=== PATIENT | female | born 1985 | race Caucasian/White ===

== ENCOUNTER 2016-08-16 16:10 | Emergency (ER) | payer OTHER ==
[2016-08-16 16:42] VITALS: BP 109/61
[2016-08-16] MEDS ORDERED: Ibuprofen TAB* 600 MG PO ONE (17:20)
--- NOTE | 2016-08-16 17:24 | UC ---
Lower Extremity/Ankle HPI - HPI Summary HPI Summary: Patient has had sever left clcaneal pain for the past few days, hard to walk and if feet are in the right position it goes numb. - History of Current Complaint Chief Complaint: UCLowerExtremity Stated Complaint: LEFT FOOT PAIN Time Seen by Provider: 08/16/16 17:11 Hx Obtained From: Patient Hx Last Menstrual Period: 08/04/16 ?: No Onset/Duration: Sudden Onset, Lasting Days Severity Initially: Mild Severity Currently: Severe Pain Intensity: 8 Pain Scale Used: 0-10 Numeric Aggravating Factor(s): Standing, Ambulation Alleviating Factor(s): Rest Able to Bear Weight: Yes - Risk Factors Gout Risk Factors: Negative DVT Risk Factors: Negative Septic Arthritis Risk Factor: Negative - Allergies/Home Medications Allergies/Adverse Reactions: Allergies Allergy/AdvReac Type Severity Reaction Status Date / Time Morphine Allergy Intermediate Unknown Verified 08/16/16 16:35 Reaction Details Amoxicillin Allergy Mild Hives Verified 08/16/16 16:35 Pseudoephedrine Allergy Hives Verified 08/16/16 16:35 [From [facility]] PMH/Surg Hx/FS Hx/Imm Hx Previously Healthy: Yes Endocrine History Of: Reports: Diabetes - pre diabetes, Thyroid Disease - HYPO Cardiovascular History Of: Denies: Cardiac Disorders, Hypertension, Congestive Heart Failure Respiratory History Of: Reports: Asthma - NEBULIZER AT HOME AND INHAILER NEEDED, Bronchitis - CHRONIC Denies: COPD GI/ History Of: Reports: Gastroesophageal Reflux Denies: Ulcer, Renal Disease - Surgical History Surgical History: Yes Surgery Procedure, Year, and Place: APPENDECTOMY, OVARIAN CYST ,PILONIDAL CYSTECTOMY - Family History Known Family History: Positive: Hypertension - Social History Alcohol Use: None Substance Use Type: None Smoking Status (MU): Former Smoker - Immunization History Most Recent Tetanus Shot: WITHIN 10 YEARS Review of Systems Constitutional: Negative Skin: Negative Eyes: Negative ENT: Negative Respiratory: Negative Cardiovascular: Negative Gastrointestinal: Negative Genitourinary: Negative Motor: Negative Neurovascular: Negative Musculoskeletal: Arthralgia, Edema - plantar aspect of foot Neurological: Negative Psychological: Negative All Other Systems Reviewed And Are Negative: Yes Physical Exam Triage Information Reviewed: Yes Appearance: Well-Appearing, Well-Nourished, Pain Distress Vital Signs: Initial Vital Signs Temp 99.1 F 08/16/16 16:32 Pulse 103 08/16/16 16:32 Resp 14 08/16/16 16:32 BP 109/61 08/16/16 16:32 Pulse Ox 99 08/16/16 16:32 Vital Signs Reviewed: Yes Eye Exam: Normal Eyes: Positive: Conjunctiva Clear ENT Exam: Normal ENT: Positive: Normal ENT inspection, Pharynx normal, TMs normal Dental Exam: Normal Neck exam: Normal Neck: Positive: Supple, Nontender, No Lymphadenopathy Respiratory Exam: Normal Respiratory: Positive: Chest non-tender, Lungs clear, Normal breath sounds Cardiovascular Exam: Normal Cardiovascular: Positive: RRR, No Murmur, Pulses Normal Abdominal Exam: Normal Abdomen Description: Positive: Nontender, No Organomegaly, Soft Bowel Sounds: Positive: Present Musculoskeletal Exam: Normal Musculoskeletal: Positive: Strength Intact, ROM Limited @, Edema @ - left foot, edema plantar aspect of foot, discreet area of swelling at tarsals Neurological Exam: Normal Neurological: Positive: Alert, Muscle Tone Normal Psychological Exam: Normal Psychological: Positive: Normal Response To Family, Age Appropriate Behavior Skin Exam: Normal Lower Extremity Course/Dx - Course Course Of Treatment: hx obtained, exam performed, xray obtained neg for any injury or pathology., ibuprofen given. - Differential Dx/Diagnosis Differential Diagnosis/HQI/PQRI: Contusion, Dislocation, Infection, Sprain, Strain, Tendonitis Provider Diagnoses: foot pain, left Discharge - Discharge Plan Condition: Stable Disposition: HOME Patient Education Materials: Arthralgia (ED) Additional Instructions: Rest ice compress and elevate your foot. ice masseage to the area for 5 minutes multiple times a day when swollen. [place] wrap may be helpful. If pain persists follow up with your primary physician.
--- NOTE | 2016-08-16 17:47 | RAD ---
HISTORY: Left calcaneal pain COMPARISONS: None VIEWS: 2, Frontal and lateral views of the left foot FINDINGS: BONE DENSITY: Normal. BONES: There is no displaced fracture. JOINTS: There is no arthropathy. ALIGNMENT: There is no dislocation. SOFT TISSUES: Unremarkable. OTHER FINDINGS: None. IMPRESSION: NO ACUTE OSSEOUS INJURY. IF SYMPTOMS PERSIST, RECOMMEND REPEAT IMAGING.
== END 2016-08-16 18:10 | disposition home or self-care (01) ==
LOC: UCCORT 16:10
DX: M79.672 Pain in left foot (principal); R73.03 Prediabetes; E03.9 Hypothyroidism, unspecified; Z87.891 Personal history of nicotine dependence; Z88.5 Allergy status to narcotic agent; Z88.3 Allergy status to other anti-infective agents; Z88.8 Allergy status to other drugs, medicaments and biological substances
CPT/HCPCS: 99212; A9270-GY; G0463

== ENCOUNTER 2016-08-19 13:04 | Emergency (ER) | payer OTHER ==
[2016-08-19 13:24] VITALS: BP 156/75
--- NOTE | 2016-08-19 13:54 | UC ---
Lower Extremity/Ankle HPI - HPI Summary HPI Summary: left foot pain, was seen 08/16/16 and dx'd with left foot pain after neg xray. Last pm slid on ice and heard a pop and reinjured the left foot. Has numbness and burning at the base of her foot and severe pain. Hard to bear weight. 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 - History of Current Complaint Chief Complaint: UCLowerExtremity Stated Complaint: LEFT FOOT INJURY Time Seen by Provider: 08/19/16 13:49 Hx Obtained From: Patient Hx Last Menstrual Period: 08/05/16 Onset/Duration: Gradual Onset, Lasting Days, Still Present Severity Initially: Moderate Severity Currently: Moderate Pain Intensity: 7 - up to a 9 with weight Aggravating Factor(s): Standing Alleviating Factor(s): Nothing Able to Bear Weight: Yes - painful - Allergies/Home Medications Allergies/Adverse Reactions: Allergies Allergy/AdvReac Type Severity Reaction Status Date / Time Morphine Allergy Intermediate Unknown Verified 08/19/16 13:24 Reaction Details Amoxicillin Allergy Mild Hives Verified 08/19/16 13:24 Pseudoephedrine Allergy Hives Verified 08/19/16 13:24 [From [facility]] PMH/Surg Hx/FS Hx/Imm Hx Endocrine History Of: Reports: Diabetes - pre diabetes, Thyroid Disease - HYPO Cardiovascular History Of: Denies: Cardiac Disorders, Hypertension, Congestive Heart Failure Respiratory History Of: Reports: Asthma - NEBULIZER AT HOME AND INHAILER NEEDED, Bronchitis - CHRONIC Denies: COPD GI/ History Of: Reports: Gastroesophageal Reflux Denies: Ulcer, Renal Disease - Surgical History Surgical History: Yes Surgery Procedure, Year, and Place: APPENDECTOMY, OVARIAN CYST ,PILONIDAL CYSTECTOMY - Family History Known Family History: Positive: Hypertension - Social History Occupation: Employed Full-time Lives: With Family Alcohol Use: None Substance Use Type: None Smoking Status (MU): Former Smoker - Immunization History Most Recent Tetanus Shot: WITHIN 10 YEARS Review of Systems Constitutional: Negative Skin: Negative Eyes: Negative ENT: Negative Respiratory: Cough Cardiovascular: Negative Gastrointestinal: Negative Genitourinary: Negative Motor: Negative Neurovascular: Negative Musculoskeletal: Arthralgia - foot, left Neurological: Negative Psychological: Negative All Other Systems Reviewed And Are Negative: Yes Physical Exam Triage Information Reviewed: Yes Appearance: Well-Appearing, Pain Distress, Obese Vital Signs: Initial Vital Signs Temp 99.5 F 08/19/16 13:14 Pulse 84 08/19/16 13:14 Resp 24 08/19/16 13:14 BP 156/75 08/19/16 13:14 Pulse Ox 100 08/19/16 13:14 Vital Signs Reviewed: Yes Eyes: Positive: Conjunctiva Clear ENT: Positive: Normal ENT inspection Neck: Positive: Supple, Nontender Respiratory: Positive: No respiratory distress Cardiovascular: Positive: RRR, Pulses Normal, Brisk Capillary Refill Musculoskeletal: Positive: Strength Intact, ROM Limited @ - left foot limited flexion Neurological: Positive: Alert, Muscle Tone Normal Psychological Exam: Normal Skin Exam: Normal Lower Extremity Course/Dx - Course Course Of Treatment: repeat xray done with repeat trauma and is again neg. Will give pt CAM boot and crutches with limited weight bearing and advise definite follow up with ortho. No heel spur. Pain is severe and is limiting pt 's ability to work. - Differential Dx/Diagnosis Differential Diagnosis/HQI/PQRI: Contusion, Fracture (Closed), Sprain, Strain Provider Diagnoses: left foot pain Discharge - Discharge Plan Condition: Stable Disposition: HOME Prescriptions: HYDROcodone/ACETAMIN 5-325 MG* [[place] 5-325 TAB*] 1 tab PO Q6H PRN #10 tab MDD 4 PRN Reason: Pain Patient Education Materials: Crutch Instructions (ED), Foot Sprain (ED) Forms: *Work Release Referrals: Pierre Ayala MD [Medical Doctor] - 1 Day Dano Kaminski MD [Primary Care Provider] -
[2016-08-19] MEDS ORDERED: HYDROcodone/ACETAMIN 5-325 MG* 1 TAB PO ONE (14:05)
--- NOTE | 2016-08-19 14:05 | RAD ---
HISTORY: Fall, medial left foot pain COMPARISONS: August 16, 2016 VIEWS: 3, Frontal, lateral, and oblique views of the left foot FINDINGS: BONE DENSITY: Normal. BONES: There is no displaced fracture. JOINTS: There is no arthropathy. ALIGNMENT: There is no dislocation. SOFT TISSUES: Unremarkable. OTHER FINDINGS: None. IMPRESSION: NO ACUTE OSSEOUS INJURY. IF SYMPTOMS PERSIST, RECOMMEND REPEAT IMAGING.
== END 2016-08-19 15:05 | disposition home or self-care (01) ==
LOC: UCCORT 13:04
DX: M79.672 Pain in left foot (principal); Z88.6 Allergy status to analgesic agent; Z88.0 Allergy status to penicillin; Z88.8 Allergy status to other drugs, medicaments and biological substances; Z87.891 Personal history of nicotine dependence
CPT/HCPCS: 99213; G0463

== ENCOUNTER 2016-09-13 14:58 | Emergency (ER) | payer OTHER ==
[2016-09-13 17:01] VITALS: BP 139/74
[2016-09-13] MEDS ORDERED: Sulfamethox/Trimethoprim DS 800/160* TAB PO ONE (17:17)
--- NOTE | 2016-09-13 17:24 | UC ---
Skin Complaint HPI - HPI Summary HPI Summary: pt c/o pimple taht began 3-4 days ago, pt "popped" pimple and now has c/o of increased redness, swelling and tenderness at site. Headache, and vomiting this morning X 3 - History of Current Complaint Chief Complaint: UCSkin Time Seen by Provider: 09/13/16 16:58 Stated Complaint: SKIN COMPLAINT Hx Last Menstrual Period: 09/05/16 ?: No Onset/Duration: Gradual Onset, Lasting Days Skin Exposure Onset/Duration: Days Ago Timing: Constant Onset Severity: Mild Current Severity: Mild Location: Face Character: Redness, Raised, Painful Aggravating: Touch Alleviating: Nothing Associated Signs & Symptoms: Positive: Tenderness - Allergy/Home Medications Allergies/Adverse Reactions: Allergies Allergy/AdvReac Type Severity Reaction Status Date / Time Morphine Allergy Intermediate Unknown Verified 08/28/16 11:39 Reaction Details Amoxicillin Allergy Mild Hives Verified 08/28/16 11:39 Lactose Intolerance (GI) Allergy GI Upset Verified 08/28/16 11:39 Pseudoephedrine Allergy Hives Verified 08/28/16 11:39 [From [facility]] Review of Systems Constitutional: Negative Skin: Other - erythema , tenderness, Eyes: Negative ENT: Negative Respiratory: Negative Cardiovascular: Negative Gastrointestinal: Negative Genitourinary: Negative Motor: Negative Neurovascular: Negative Musculoskeletal: Negative Neurological: Headache Psychological: Negative All Other Systems Reviewed And Are Negative: Yes PMH/Surg Hx/FS Hx/Imm Hx - Additional Past Medical History Additional PMH: has positive history to MRSA exposure Previously Healthy: No - see PMH Endocrine History Of: Reports: Diabetes - pre diabetes, Thyroid Disease - HYPO Cardiovascular History Of: Denies: Cardiac Disorders, Hypertension, Pacemaker/ICD, Congestive Heart Failure Respiratory History Of: Reports: Asthma - NEBULIZER AT HOME AND INHAILER NEEDED, Bronchitis - CHRONIC Denies: COPD GI/ History Of: Reports: Gastroesophageal Reflux Denies: Ulcer, Renal Disease - Surgical History Surgical History: Yes Surgery Procedure, Year, and Place: APPENDECTOMY, OVARIAN CYST ,PILONIDAL CYSTECTOMY - Family History Known Family History: Positive: Hypertension - Social History Lives: With Family Alcohol Use: None Substance Use Type: None Smoking Status (MU): Former Smoker - Immunization History Most Recent Tetanus Shot: WITHIN 10 YEARS Physical Exam Triage Information Reviewed: Yes Appearance: Well-Appearing Vital Signs: Initial Vital Signs Temp 97.4 F 09/13/16 16:58 Pulse 87 09/13/16 16:58 Resp 16 09/13/16 16:58 BP 139/74 09/13/16 16:58 Pulse Ox 99 09/13/16 16:58 Vital Signs Reviewed: Yes Eye Exam: Normal ENT Exam: Other - erythematous skin left side of nose, ~ 3 cm long and 2 cm wide Neck exam: Normal Respiratory Exam: Normal Cardiovascular Exam: Normal Musculoskeletal Exam: Normal Neurological Exam: Normal Psychological Exam: Normal Skin Exam: Other - erythematous area to left side of nose, palpable firm area ~ 1 cm wide, scabbed wound ~ pencil eraser size Course/Dx - Differential Diagnoses - Skin Complaint Differential Diagnoses: Abscess, Cellulitis - Diagnoses Provider Diagnoses: cellulitis,. cystic acne Discharge - Discharge Plan Condition: Stable Disposition: HOME Prescriptions: Sulfamethox/Trimethoprim DS* [Bactrim DS 800/160 TAB*] 1 tab PO BID #10 tab Patient Education Materials: Cellulitis (ED), Acne (ED) Referrals: Dano Kaminski MD [Primary Care Provider] -
== END 2016-09-13 17:28 | disposition home or self-care (01) ==
LOC: UCCORT 14:58
DX: J34.0 Abscess, furuncle and carbuncle of nose (principal); L70.0 Acne vulgaris; R51 Headache; R11.10 Vomiting, unspecified; Z88.5 Allergy status to narcotic agent; Z88.0 Allergy status to penicillin; Z88.8 Allergy status to other drugs, medicaments and biological substances; Z87.891 Personal history of nicotine dependence
CPT/HCPCS: 99212; A9270-GY; G0463

== ENCOUNTER → 2016-09-21 11:25 | Day surgery (SDC) | payer OTHER ==
[~2016-09-21 11:25] MED LIST: Buffered Lidocaine 1% SYR 3ML* 3 ML/SYR SYRINGE INTRADERM ONE; Bupivacaine 0.5% SDV PF* 30 ML VIAL ONE; Clindamycin 900 MG IVPREMIX(* 900 MG/50 ML SDV IV ONE; DiMENhydriNATE IV* 50 MG/ML VIAL IV PUSH PRN; HYDROcodone/ACETAMIN 5-325 MG* 1 TAB ONE; HYDROcodone/ACETAMIN 5-325 MG* 1 TAB PO PRN; HYDROmorphone INJ* 1 MG/ML CARPUJECT SYRINGE ONE; Ketorolac INJ* 30 MG/ML 1 ML VIAL IV PRN; Ketorolac INJ* 30 MG/ML 1 ML VIAL ONE; Lidocaine 2% PF * 5 ML VIAL ONE; Ondansetron INJ* 2 MG/ML VIAL IV PRN; Propofol* 10 MG/ML 20 ML BTL IV PUSH ONE; fentaNYL* 50 MCG/ML 2 ML VIAL (100 MCG VIAL) ONE; fentaNYL* 50 MCG/ML 5 ML VIAL (250 MCG VIAL) ONE
[2016-09-21 11:59] LABS: UR Preg Internal Control QC Line Present
[2016-09-21] MEDS: fentaNYL* 50 MCG/ML 2 ML VIAL (100 MCG VIAL) IV PRN ×2 (15:59→16:13)
[2016-09-21] MEDS: HYDROmorphone INJ* 1 MG/ML CARPUJECT SYRINGE IV PRN ×3 (16:09→17:13)
[2016-09-21 18:05] VITALS: BP 110/89
--- NOTE | 2016-09-21 21:37 | RAD ---
INDICATION: Excision of accessory navicular COMPARISON: Left foot August 19, 2016 FINDINGS: 9 seconds of fluoroscopy were provided for the orthopedics department. Fluoroscopic spot imaging of the left foot were obtained for operative control. CPT II Codes: 6045F (fluoro time doc)
--- NOTE | 2016-09-22 03:37 | OP ---
DATE OF OPERATION: 09/21/16 - [facility] DATE OF : 81 ATTENDING SURGEON: Gino Liao MD HORIZONTAL RESAW OPERATOR: Maria E Singh PA-C. ANESTHESIOLOGIST: Yogesh Park MD ANESTHESIA: General PRE-OP DIAGNOSIS: Painful accessory navicular hind foot valgus. POST-OP DIAGNOSIS: Painful accessory navicular hind foot valgus. OPERATIVE PROCEDURE: Medial displacement calcaneal osteotomy, right foot and repair of the accessory navicular. DESCRIPTION OF PROCEDURE: The patient was taken to the operating room where a lateral oblique incision was made over the lateral heel. We subluxed the peroneal tendons dorsally to allow visualization of the lateral calcaneus. The osteotomy was performed from lateral to medial dividing the calcaneus in that plane. This was then displaced medially one full centimeter and pinned from the heel to the anterior process using a 65-mm partially threaded cancellous screw. We then irrigated the lateral wound and the heel wound closing with Vicryl Surgipro for the heel and pavan for the skin. The longitudinal incision was made medially centered on the navicular medially. We incised down through the sheath into the posterior tibial tendon. The tendon itself appeared to be in good shape without any thickening or nodularity. The accessory navicular was quite large 3 cm in length x 2 cm in thick over a centimeter thick. Because of the good shape of the posterior tibial tendon, we repaired the accessory navicular by freshening both bone surfaces with the power eladio and fixing it with pair of 2.7 mm cortical screws. X-rays intraoperatively showed good fixation of the accessory navicular. We then irrigated the medial wound closing again with Vicryl and pavan for the skin and a compression dressing plaster splint applied. [id number]/[facility] #: [id number] MTDD
== END | disposition home or self-care (01) ==
LOC: OR 11:25
PROVIDERS: ATTEND Orthopaedic Surgery
DX: Q74.2 Other congenital malformations of lower limb(s), including pelvic girdle (principal); M76.821 Posterior tibial tendinitis, right leg; E11.9 Type 2 diabetes mellitus without complications; J45.909 Unspecified asthma, uncomplicated; I45.4 Nonspecific intraventricular block
CPT/HCPCS: 76000; 81025; C1713; C1776; J1170; J1885; J2704; J3010

== ENCOUNTER → 2016-10-26 14:06 | Day surgery (SDC) | payer OTHER ==
[2016-10-26 14:06] LABS: UR Preg Internal Control QC Line Present
[~2016-10-26 14:06] MED LIST changes: -Buffered Lidocaine 1% SYR 3ML* 3 ML/SYR SYRINGE INTRADERM ONE; +Buffered Lidocaine 1% SYRIN* 3 ML/SYR SYRINGE INTRADERM ONE; +Dexamethasone IV* 4 MG/ML 1 ML (4 MG) IV SLOW PU ONE; +Dexamethasone IV* 4 MG/ML 1 ML (4 MG) ONE; +Dexmedetomidine* 200 MCG/2 ML 2 ML VIAL ONE; +Famotidine IV* 10 MG/ML 2 ML (20 mg) IV ONE; +Famotidine IV* 10 MG/ML 2 ML (20 mg) ONE; -HYDROcodone/ACETAMIN 5-325 MG* 1 TAB ONE; -HYDROcodone/ACETAMIN 5-325 MG* 1 TAB PO PRN; -HYDROmorphone INJ* 1 MG/ML CARPUJECT SYRINGE ONE; +HYDROmorphone* 1 MG/ML 1 ML SYR ONE; -Ketorolac INJ* 30 MG/ML 1 ML VIAL IV PRN; -Lidocaine 2% PF * 5 ML VIAL ONE; +Lidocaine 2% PF* 5 ML VIAL ONE; +Midazolam* 1 MG/ML 5 ML VIAL (5 MG) ONE; +Ondansetron INJ* 2 MG/ML VIAL ONE; +PROCHLORPERAZINE INJ 5 MG/ML 2 ML VIAL IV PRN; +Scopolamine 1.5 mg* PATCH TRANSDERM PRN; +Scopolomine PATCH Remove* 1 NOTE MISC PATCH OFF ONE; +fentaNYL* 50 MCG/ML 2 ML VIAL (100 MCG VIAL) IV PRN; -fentaNYL* 50 MCG/ML 5 ML VIAL (250 MCG VIAL) ONE; +oxyCODONE TAB* 5 MG TAB ONE
[2016-10-26 17:12] VITALS: BP 125/77
--- NOTE | 2016-10-27 11:21 | OP ---
DATE OF OPERATION: 10/26/16 [facility] DATE OF : 81 ATTENDING SURGEON: Gino Liao MD GOLD MINER BLASTING: Maria E Singh PA-C ANESTHESIOLOGIST: Cristi Smith MD ANESTHESIA: General PRE-OP DIAGNOSIS: Failed fixation of the accessory navicular. POST-OP DIAGNOSIS: Failed fixation of the accessory navicular. OPERATIVE PROCEDURE: Advancement of right posterior tibial tendon with FDL tendon transfer, screw removal, right navicular. DESCRIPTION OF PROCEDURE: The patient was taken to the operating room where we opened up longitudinally over the medial hindfoot. The two screws were located at the medial navicular. These were removed as well as their washers. However , the tendon itself had pulled off of this area with some fragments of the accessory navicular and was retracted 3-4 cm proximally. We debrided off of the distal tendon these small bone fragments. The FDL tendon was isolated just deep to the posterior tibial and traced all the way down to the knot of Wally where it was sewn side to side with a #1 Vicryl to the FHL tendon. We then transected the FDL, bringing it proximally and anchoring it with a #0 Vicryl suture, passing it through a 4 mm drill hole at the medial navicular, bringing it through the dorsal aspect and then back on to itself and tied with a #0 Vicryl. Posterior tibial tendon was unable to be advanced all the way to the navicular, but it was sewn side to side into the FDL as a tenodesis. We then repaired the sheath over the entire construct with 2-0 Vicryl sutures, irrigated thoroughly, some cultures being sent of the screw site, closing the subcu tissue with 2-0 Vicryl, and then pavan for the skin. A compression dressing and plaster splint applied. [id number]/[facility] #: [id number] MTDD
== END | disposition home or self-care (01) ==
LOC: OR 14:06
PROVIDERS: ATTEND Orthopaedic Surgery
DX: T84.293A Other mechanical complication of internal fixation device of bones of foot and toes, initial encounter (principal); Y79.3 Surgical instruments, materials and orthopedic devices (including sutures) associated with adverse incidents; S86.111A Strain of other muscle(s) and tendon(s) of posterior muscle group at lower leg level, right leg, initial encounter; X58.XXXA Exposure to other specified factors, initial encounter; Y92.9 Unspecified place or not applicable; M76.821 Posterior tibial tendinitis, right leg; Y99.9 Unspecified external cause status; Z88.0 Allergy status to penicillin; Z88.5 Allergy status to narcotic agent; Z88.8 Allergy status to other drugs, medicaments and biological substances; K21.9 Gastro-esophageal reflux disease without esophagitis; E11.9 Type 2 diabetes mellitus without complications; J45.909 Unspecified asthma, uncomplicated; I45.10 Unspecified right bundle-branch block; I10 Essential (primary) hypertension; E28.2 Polycystic ovarian syndrome
CPT/HCPCS: 81025; 87070; 87073; 87077; 87205; 88300; 88304; 88311; 88341; 88342; A9270-GY; J1100; J1170; J1885; J2250; J2405; J2704; J3010

== ENCOUNTER 2017-04-07 20:18 | Emergency (ER) | payer OTHER ==
[2017-04-07 20:39] VITALS: BP 128/76
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
== END 2017-04-07 22:06 | disposition home or self-care (01) ==
LOC: UCCORT 20:18
DX: J45.909 Unspecified asthma, uncomplicated (principal); Z87.891 Personal history of nicotine dependence; S16.1XXA Strain of muscle, fascia and tendon at neck level, initial encounter; S29.012A Strain of muscle and tendon of back wall of thorax, initial encounter; S39.012A Strain of muscle, fascia and tendon of lower back, initial encounter; M54.10 Radiculopathy, site unspecified; M54.30 Sciatica, unspecified side
CPT/HCPCS: 99213; G0463

== ENCOUNTER 2017-06-03 20:05 | Emergency (ER) | payer OTHER ==
[2017-06-03 21:06] VITALS: BP 152/91
--- NOTE | 2017-06-03 21:17 | UC ---
Skin Complaint HPI - HPI Summary HPI Summary: Pt presents with rash on right mid flank. Pt reports that the area was first pruritic and now has a burning, electric feeling to the area. - History of Current Complaint Chief Complaint: UCRash Time Seen by Provider: 06/03/17 20:55 Stated Complaint: RASH,SCRATCHY THROAT Hx Obtained From: Patient Hx Last Menstrual Period: 03/22/17 ?: No Onset/Duration: Gradual Onset Skin Exposure Onset/Duration: Days Ago Timing: Constant Onset Severity: Mild Current Severity: Mild Location: Discrete - right flank Character: Pruritus, Painful Aggravating Factor(s): Touch Alleviating Factor(s): Unknown Associated Signs & Symptoms: Positive: Rash - Allergy/Home Medications Allergies/Adverse Reactions: Allergies Allergy/AdvReac Type Severity Reaction Status Date / Time Morphine Allergy Severe severe Verified 06/03/17 21:06 nausea/vomiting Pseudoephedrine Allergy Severe Hives Verified 06/03/17 21:06 [From [facility]] Amoxicillin Allergy Intermediate Hives Verified 06/03/17 21:06 Lactose Intolerance (GI) Allergy Intermediate GI Upset Verified 06/03/17 21:06 Review of Systems Constitutional: Negative Skin: Rash ENT: Negative Respiratory: Negative Cardiovascular: Negative Gastrointestinal: Negative Genitourinary: Negative Motor: Negative Neurovascular: Negative Musculoskeletal: Negative Neurological: Negative Psychological: Negative Is Patient Immunocompromised?: No All Other Systems Reviewed And Are Negative: Yes PMH/Surg Hx/FS Hx/Imm Hx Previously Healthy: Yes - Surgical History Surgical History: Yes Surgery Procedure, Year, and Place: APPENDECTOMY, OVARIAN CYST ,PILONIDAL CYSTECTOMY. right foot surgery 09/21/16. RIGHT FOOT/ANKLE SURGERY 10/26/16 - Family History Known Family History: Positive: Hypertension - Social History Alcohol Use: None Substance Use Type: None Smoking Status (MU): Former Smoker Type: Cigarettes Have You Smoked in the Last Year: No When Did the Patient Quit Smoking/Using Tobacco: 7 years ago - Immunization History Most Recent Tetanus Shot: WITHIN 10 YEARS Physical Exam Triage Information Reviewed: Yes Appearance: Well-Appearing Vital Signs: Initial Vital Signs Temp 98.8 F 06/03/17 20:58 Pulse 105 06/03/17 20:58 Resp 16 06/03/17 20:58 BP 152/91 06/03/17 20:58 Pulse Ox 97 06/03/17 20:58 Eye Exam: Normal ENT Exam: Normal Neck exam: Normal Respiratory Exam: Other Respiratory: Positive: No respiratory distress Musculoskeletal Exam: Normal Neurological Exam: Normal Psychological Exam: Normal Skin Exam: Other - scattered macular papular rash on right flank Course/Dx - Differential Diagnoses - Skin Complaint Differential Diagnoses: Contact Dermatitis, Other - Diagnoses Provider Diagnoses: rash, Discharge - Discharge Plan Condition: Stable Disposition: HOME Patient Education Materials: Acute Rash (ED) Referrals: Dano Kaminski MD [Primary Care Provider] - If Needed
== END 2017-06-03 21:26 | disposition home or self-care (01) ==
LOC: UCCORT 20:05
DX: R21 Rash and other nonspecific skin eruption (principal); Z88.5 Allergy status to narcotic agent; Z88.1 Allergy status to other antibiotic agents; Z91.011 Allergy to milk products; Z87.891 Personal history of nicotine dependence
CPT/HCPCS: 99211; G0463

== ENCOUNTER 2017-06-26 07:13 | Emergency (ER) | payer OTHER ==
[2017-06-26 07:28] VITALS: BP 150/98
--- NOTE | 2017-06-26 07:55 | UC ---
Respiratory Complaint HPI - HPI Summary HPI Summary: C/O URI symptoms over the last week with ear pain, nasal congestion, cough with pleuritic pain with cough. - History of Current Complaint Chief Complaint: UCRespiratory Stated Complaint: SORE THROAT CONGESTION EAR PAIN Time Seen by Provider: 06/26/17 07:47 Hx Obtained From: Patient Hx Last Menstrual Period: now ?: No Onset/Duration: Sudden Onset, Lasting Weeks - 1, Worse Since - wednesday Timing: Constant Severity Initially: Mild Severity Currently: Severe Character: Cough: Nonproductive Associated Signs And Symptoms: Positive: Pleuritic Chest Pain, Wheezing, URI, Nasal Congestion, Hoarseness, Sinus Discomfort Related History: Seasonal Allergies - Allergies/Home Medications Allergies/Adverse Reactions: Allergies Allergy/AdvReac Type Severity Reaction Status Date / Time Morphine Allergy Severe severe Verified 06/26/17 07:29 nausea/vomiting Pseudoephedrine Allergy Severe Hives Verified 06/26/17 07:29 [facility] Amoxicillin Allergy Intermediate Hives Verified 06/26/17 07:29 Lactose Intolerance (GI) Allergy Intermediate GI Upset Verified 06/26/17 07:29 Home Medications: Home Medications Albuterol, Budesonide Neb 1 unit INH Q4HR PRN 06/26/17 [History] PMH/Surg Hx/FS Hx/Imm Hx Endocrine History: Diabetes Respiratory History: Asthma - Surgical History Surgical History: Yes Surgery Procedure, Year, and Place: APPENDECTOMY, OVARIAN CYST ,PILONIDAL CYSTECTOMY. right foot surgery 09/21/16. RIGHT FOOT/ANKLE SURGERY 10/26/16 - Family History Known Family History: Positive: Cardiac Disease, Hypertension Negative: Diabetes - Social History Occupation: Unemployed Lives: With Family Alcohol Use: None Substance Use Type: None Smoking Status (MU): Former Smoker Type: Cigarettes Have You Smoked in the Last Year: No When Did the Patient Quit Smoking/Using Tobacco: 7 years ago - Immunization History Most Recent Tetanus Shot: WITHIN 10 YEARS Review of Systems ENT: Sore Throat, Ear Ache, Sinus Pain/Tenderness Respiratory: Shortness Of Breath, Cough Is Patient Immunocompromised?: No All Other Systems Reviewed And Are Negative: Yes Physical Exam Triage Information Reviewed: Yes Appearance: No Pain Distress, Ill-Appearing, Obese Vital Signs: Initial Vital Signs Temp 98.1 F 06/26/17 07:22 Pulse 91 06/26/17 07:22 Resp 22 06/26/17 07:22 BP 150/98 06/26/17 07:22 Pulse Ox 100 06/26/17 07:22 Vital Signs Reviewed: Yes Eyes: Positive: Conjunctiva Clear ENT: Positive: Pharyngeal erythema, Nasal congestion, TMs normal Neck: Positive: Supple, Tenderness @ - right anterior cervical nodes. Respiratory: Positive: Lungs clear, Wheezing - Expiratory wheeze with coughing Cardiovascular Exam: Normal Musculoskeletal Exam: Normal Neurological Exam: Normal Psychological Exam: Normal Skin Exam: Normal UC Diagnostic Evaluation - Laboratory O2 Sat by Pulse Oximetry: 100 Respiratory Course/Dx - Differential Dx/Diagnosis Differential Diagnosis/HQI/PQRI: Asthma, Laryngitis, Lower Resp Infection, Sinusitis Provider Diagnoses: Acute URI. Acute sinusitis. Asthma with acute exacerbation. Discharge - Discharge Plan Condition: Stable Disposition: HOME Prescriptions: Cefdinir [Cefdinir 300 MG CAP] 300 mg PO BID #20 cap predniSONE TAB* [Deltasone TAB*] 20 mg PO DAILY #18 tab Patient Education Materials: Upper Respiratory Infection (ED), Wheezing (ED), Sinusitis (ED), Prednisone (By mouth), Cefdinir (By mouth) Referrals: Dnao Kaminski MD [Primary Care Provider] -
== END 2017-06-26 08:18 | disposition home or self-care (01) ==
LOC: UCCORT 07:13
DX: J06.9 Acute upper respiratory infection, unspecified (principal); J01.90 Acute sinusitis, unspecified; J45.901 Unspecified asthma with (acute) exacerbation; E11.9 Type 2 diabetes mellitus without complications; E66.9 Obesity, unspecified; Z88.1 Allergy status to other antibiotic agents; Z88.5 Allergy status to narcotic agent; Z87.891 Personal history of nicotine dependence
CPT/HCPCS: 99212; G0463

== ENCOUNTER 2017-07-05 09:50 | Day surgery (SDC) | payer OTHER ==
[~2017-07-05 09:50] MED LIST changes: +Buffered Lidocaine 0.9% SYRIN* 5 ML/SYR SYRINGE INTRADERM ONE; +Buffered Lidocaine 0.9% SYRIN* 5 ML/SYR SYRINGE ONE; -Buffered Lidocaine 1% SYRIN* 3 ML/SYR SYRINGE INTRADERM ONE; -Bupivacaine 0.5% SDV PF* 30 ML VIAL ONE; -Dexmedetomidine* 200 MCG/2 ML 2 ML VIAL ONE; -DiMENhydriNATE IV* 50 MG/ML VIAL IV PUSH PRN; -HYDROmorphone* 1 MG/ML 1 ML SYR ONE; -Ketorolac INJ* 30 MG/ML 1 ML VIAL ONE; -Lidocaine 2% PF* 5 ML VIAL ONE; -Midazolam* 1 MG/ML 5 ML VIAL (5 MG) ONE; -Ondansetron INJ* 2 MG/ML VIAL IV PRN; -Ondansetron INJ* 2 MG/ML VIAL ONE; -PROCHLORPERAZINE INJ 5 MG/ML 2 ML VIAL IV PRN; -Propofol* 10 MG/ML 20 ML BTL IV PUSH ONE; -Scopolamine 1.5 mg* PATCH TRANSDERM PRN; -Scopolomine PATCH Remove* 1 NOTE MISC PATCH OFF ONE; -fentaNYL* 50 MCG/ML 2 ML VIAL (100 MCG VIAL) IV PRN; -fentaNYL* 50 MCG/ML 2 ML VIAL (100 MCG VIAL) ONE; -oxyCODONE TAB* 5 MG TAB ONE
[2017-07-05] MEDS ORDERED: HYDROcodone/ACETAMIN 5-325 MG* 1 TAB PO PRN (11:23)
[2017-07-05] MEDS ORDERED: PROCHLORPERAZINE INJ 5 MG/ML 2 ML VIAL IV PRN (11:23)
[2017-07-05] MEDS ORDERED: Propofol* 10 MG/ML 20 ML BTL IV PUSH ONE (11:44)
[2017-07-05] MEDS ORDERED: fentaNYL* 50 MCG/ML 2 ML VIAL (100 MCG VIAL) ONE ×4 (11:44→15:07)
[2017-07-05] MEDS ORDERED: Lidocaine 2% PF * 5 ML VIAL ONE (11:45)
[2017-07-05] MEDS ORDERED: Midazolam* 1 MG/ML 5 ML VIAL (5 MG) ONE (11:47)
[2017-07-05] MEDS ORDERED: Ketorolac INJ* 30 MG/ML 1 ML VIAL ONE (12:04)
[2017-07-05] MEDS ORDERED: Phenylephrine IV* 40 MCG/ML 10 ML SYRINGE ONE (12:16)
[2017-07-05] MEDS ORDERED: Bupivacaine 0.25% SDV* 30 ML ONE (12:53)
[2017-07-05] MEDS ORDERED: Ondansetron INJ* 2 MG/ML VIAL ONE (13:27)
[2017-07-05] MEDS ORDERED: oxyCODONE/Acetamin 5/325 MG* TAB ONE ×2 (14:13→14:33)
[2017-07-05] MEDS: fentaNYL* 50 MCG/ML 2 ML VIAL (100 MCG VIAL) IV PRN ×3 (14:14→15:10)
[2017-07-05] MEDS: oxyCODONE/Acetamin 5/325 MG* TAB PO PRN ×2 (14:14→14:33)
[2017-07-05] MEDS ORDERED: PROCHLORPERAZINE INJ 5 MG/ML 2 ML VIAL ONE (14:40)
[2017-07-05 15:14] VITALS: BP 141/80
--- NOTE | 2017-07-06 06:45 | OP ---
DATE OF OPERATION: 07/05/17 - [facility] DATE OF : 81 SURGEON: Gino Narayan MD PUBLIC DEFENDER: JOE Tarango and JOE Jamison. An certified registered dental assistant was needed for the entirety of the procedure to aid in positioning of the arm, retraction, and instrumentation. ANESTHESIOLOGIST: Dr. Deangelo Patricia. ANESTHESIA: General. PRE-OP DIAGNOSIS: Right thumb carpometacarpal degenerative joint disease. POST-OP DIAGNOSIS: Right thumb carpometacarpal degenerative joint disease. OPERATIVE PROCEDURE: Right thumb carpometacarpal fusion with autogenous ipsilateral distal radius bone graft. INDICATIONS: Lori is 31. She has had progressive pain in the right thumb basal joint area. She has had injections and nonoperative treatment. The pain is persistent and really limiting her ability to use the hand. I talked to her about her options. I recommended a fusion given her young age and need to work for many years. She agreed. We talked about risks and benefits and she elected to proceed. ESTIMATED BLOOD LOSS: 2 mL. COMPLICATIONS: None. FINDINGS: Full-thickness cartilage loss on both the distal aspect of the trapezium and the proximal metacarpal base. DESCRIPTION OF PROCEDURE: Lori was seen in the preoperative holding area. The correct site, side, and procedure were identified. We came back to the operating room. The arm was prepped and draped in the usual fashion. A time- out was performed. The arm was exsanguinated with the Esmarch and the tourniquet was inflated to 250 mmHg. I then made a longitudinal incision from the dorsum of the base of the 1st metacarpal down over the dorsal radial aspect of the trapezium. Full- thickness flaps were raised. The traversing radial sensory nerve was identified and gently retracted. Subperiosteal and capsular flaps were raised. The joint surface was exposed. There was some full-thickness cartilage loss on the articular surfaces. I then used the sagittal saw to create parallel cuts through the subchondral bone on both the metacarpal base and the distal aspect of the trapezium. The surfaces were apposed and cuts were contoured until the 2 surfaces apposed in a very nice position for the fusion. I then made a 2 cm incision over the dorsum of the forearm just proximal to the Sahra's tubercle. Dissection was carried down and subperiosteal flaps were raised. The osteotome was used to make a cortical window in the dorsum of the distal radius. The angled curettes were used to harvest the distal radius bone graft. Once adequate bone graft was harvested, this area was irrigated out, infiltrated with 0.25% Marcaine, and closed with 3-0 Monocryl. I then went ahead and packed my bone graft into my fusion sites. I then went ahead and reduced and apposed the 2 fusion surfaces and this all had been placed with one 0.045 K wire. I then went ahead and picked a 1.5 mm lateral plate off the Correlsense variable angle handset, this was placed in correct position and secured with four 1.5 mm cortical screws distally and proximally two 1.5 mm variable angle locking screws into the trapezium. Everything was apposed very nicely. I went ahead and took some fluoroscopic imaging. The wound was irrigated, the periosteal layer was closed over the plate with a 4-0 Vicryl suture. The skin was closed with 3-0 Monocryl suture. The area was infiltrated with 0.25% plain Marcaine. The wounds were dressed with Steri-Strips, sterile 4 x 4, sterile Webril, and then a thumb spica splint out to the IP joint was placed with the thumb in the abducted position. Tourniquet was deflated and the hand pinked up immediately. She was then taken to the recovery room in stable condition. [id number]/CPS #: [id number] MTDD
--- NOTE | 2017-07-06 11:19 | RAD ---
INDICATION: Basal joint osteoarthritis. COMPARISON: May 18, 2017 TECHNIQUE: 9 seconds fluoroscopy. FINDINGS: Spot images document a cortical plate and fixation screws traversing the first carpometacarpal joint. IMPRESSION: Procedural fluoroscopy. CPT II Codes: 6045F
== END 2017-07-05 15:38 | disposition home or self-care (01) ==
LOC: OR 09:50
PROVIDERS: ATTEND Orthopaedic Surgery Hand Surgery
DX: M18.0 Bilateral primary osteoarthritis of first carpometacarpal joints (principal); Z88.1 Allergy status to other antibiotic agents; Z88.5 Allergy status to narcotic agent; Z88.8 Allergy status to other drugs, medicaments and biological substances; Z87.891 Personal history of nicotine dependence; E11.9 Type 2 diabetes mellitus without complications; Z79.84 Long term (current) use of oral hypoglycemic drugs; J45.909 Unspecified asthma, uncomplicated; K21.9 Gastro-esophageal reflux disease without esophagitis
CPT/HCPCS: 76000; 81025; A9270-GY; C1713; C1776; J0780; J1100; J1885; J2250; J2405; J2704; J3010

== ENCOUNTER 2017-07-30 07:19 | Emergency (ER) | payer OTHER ==
--- OUTSIDE RECORDS SUMMARY | 2017-07-30 07:27 | XMS REPORT ---
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 Family History Date Family Member(s) Problem(s) Comments General Heart Disease General Cancer Social History Type Date Description Comments Marital Status Lives With Family Occupation [employer] Cigarette Use Former Cigarette Smoker ETOH Use Denies alcohol use Smoking Patient is a former smoker Recreational Drug Use Denies Drug Use Daily Caffeine Consumes on average 3 cups of regular coffee per day Exercise Type/Frequency Exercises sporadically Allergies, Adverse Reactions, Alerts Date Description Reaction Status Severity Comments 08/21/2016 Amoxicillin active 08/21/2016 Morphine active 08/21/2016 Sudafed active 11/16/2016 Cast Material active Hives and itching 04/28/2017 active Medications Medication Date Status Form Strength Qnty SIG Indications Ordering Provider Cast 07/06 Active Misc Right Gino Protector/Full-Ar upper gisselle Narayan Adult extremity Hydrocodone-Aceta 07/05 Active Tablets 5-325mg 30tab 1 or 2 Gino min s tabs by fern Narayan MD every 6-8 hours as needed for pain Kratom 12/09 Active Powder 2 teaspoons Keshawn, in liquid M.D. daily. (not currently taking 07/13/17) Bariatric 11/05 Active 1unit folding Gino Wheelchair s wheelchair Keshawn, to be used M.D. as needed, needs elevated leg rest, nees to accomodate 325lbs Hydrochlorothiazi Active Capsules 12.5mg TK 1 C PO Unknown de 0000 D Ranitidine HCL Active Tablets 300mg TK 1 T PO Unknown 0000 D Montelukast Active Tablets 10mg TK 1 T PO Unknown Sodium 0000 qd Metformin HCL Active Tablets 500mg TK 1 T PO Unknown /0000 bid Pantoprazole Active Tablets DR 40mg 1 by mouth Unknown Sodium twice daily Fluticasone Active Suspension 50mcg/Act 2 sprays Unknown Propionate each nostril daily Ventolin HFA Active Aerosol 108(90Bas 2 puffs Unknown /0000 e) prn mcg/Act Symbicort Active Aerosol 160-4.5mc 2 puffs Unknown /0000 g/Act bid Ketotifen Active Solution 0.025% Instill 1 Unknown Fumarate 0000 GTT In OU bid prn Xyzal Allergy Active Tablets 10mg 1 by mouth Unknown 24HR /0000 every day Iron Active daily Unknown /0000 Tramadol HCL 10/27 Hx Tablets 50mg 60tab 1-2 tablet s by mouth Sylvain, - every 4-6 MD 03/09 hours needed pain Oxycodone HCL 10/26 Hx Tablets 5mg 40tab 1-2 tabs s by mouth Keshawn, - every 4-6 M.D. 10/27 hours needed Tramadol HCL 09/28 Hx Tablets 50mg 60tab 1-2 s tablets Keshawn, - every 6 M.D. 10/07 hours needed Cast And Bandage 09/28 Hx Misc 1unit cast cover Gino Cover/Lower Leg s right Keshawn, - lower M.D. 11/03 Oxycodone HCL 09/21 Hx Tablets 5mg 60tab 1-2 tabs s by mouth Keshawn, - every 4-6 M.D. 02/07 hours needed Clindamycin HCL Hx Capsules 300mg TK 1 C PO Unknown /0000 Q 6 H - 08/20 Pulmicort Hx Aerosol 180mcg/Ac Inhale 1 Unknown Flexhaler t puff PO Q - 12 H 08/20 Fluticasone Hx Suspension 50mcg/Act Use 1 Unknown Propionate Braham In - Each 08/20 Nostril Green Vibrance Hx 1 scoop Unknown into - liquid 04/13 Cetirizine HCL Hx Tablets 10mg 1 by mouth Unknown / every day - 06/14 Flovent Diskus Hx Aerosol 100mcg/Bl 1 Unknown ist inhalation - daily 02/08 Tramadol HCL Hx Tablets 50mg TK 1 To 2 Unknown TS PO Q 4 - To 6 H PRF 04/27 Pain. 6 Medications Administered in Office Medication Date Status Form Strength Qnty SIG Indications Ordering Provider Celestone 3 mg Administered Injection Gino and 3mg 017 MD Sylvain Vital Signs Date Vital Result Comment 07/28/2017 Height 66 inches 5'6" Weight 335.00 lb Heart Rate 82 /min Respiratory Rate 18 /min Body Temperature 97.7 F Pain Level 6 BMI (Body Mass Index) 54.1 kg/m2 07/20/2017 Height 66 inches 5'6" Weight 335.00 lb Heart Rate 90 /min BP Systolic Sitting 130 mmHg BP Diastolic Sitting 84 mmHg Respiratory Rate 18 /min Pain Level 5 BMI (Body Mass Index) 54.1 kg/m2 07/14/2017 Height 66 inches 5'6" Weight 330.00 lb Heart Rate 70 /min BP Systolic Sitting 116 mmHg BP Diastolic Sitting 68 mmHg Respiratory Rate 16 /min Pain Level 5 BMI (Body Mass Index) 53.3 kg/m2 07/13/2017 Height 66 inches 5'6" Weight 330.00 lb per pt Heart Rate 94 /min reg BP Systolic Sitting 104 mmHg Lue, lg cuff BP Diastolic Sitting 70 mmHg Lue, lg cuff Respiratory Rate 16 /min O2 % BldC Oximetry 97 % on Ra BMI (Body Mass Index) 53.3 kg/m2 Neck Circumference in inches 15.5 06/15/2017 Height 66 inches 5'6" Weight 339.38 lb Heart Rate 102 /min BP Systolic Sitting 140 mmHg BP Diastolic Sitting 82 mmHg Respiratory Rate 20 /min Pain Level 6 BMI (Body Mass Index) 54.8 kg/m2 05/19/2017 Height 66 inches 5'6" Weight 330.00 lb Heart Rate 78 /min BP Systolic Sitting 114 mmHg BP Diastolic Sitting 70 mmHg Respiratory Rate 20 /min Pain Level 6 BMI (Body Mass Index) 53.3 kg/m2 05/18/2017 Height 66 inches 5'6" Weight 330.00 lb Heart Rate 76 /min BP Systolic Sitting 126 mmHg BP Diastolic Sitting 74 mmHg Respiratory Rate 17 /min Pain Level 7 BMI (Body Mass Index) 53.3 kg/m2 04/28/2017 Height 66 inches 5'6" Heart Rate 109 /min BP Systolic Sitting 116 mmHg BP Diastolic Sitting 86 mmHg Respiratory Rate 20 /min Pain Level 6 O2 % BldC Oximetry 96 % 04/07/2017 Height 66 inches 5'6" Weight 330.00 lb Heart Rate 76 /min BP Systolic Sitting 134 mmHg BP Diastolic Sitting 76 mmHg Respiratory Rate 20 /min Pain Level 7 BMI (Body Mass Index) 53.3 kg/m2 03/10/2017 Height 66 inches 5'6" Weight 330.00 lb Heart Rate 96 /min BP Systolic Sitting 122 mmHg BP Diastolic Sitting 66 mmHg Respiratory Rate 18 /min Pain Level 6 BMI (Body Mass Index) 53.3 kg/m2 02/10/2017 Height 66 inches 5'6" Weight 330.00 lb Heart Rate 110 /min BP Systolic Sitting 116 mmHg BP Diastolic Sitting 68 mmHg Respiratory Rate 24 /min Pain Level 4 BMI (Body Mass Index) 53.3 kg/m2 12/30/2016 Height 66 inches 5'6" Weight 320.00 lb Heart Rate 80 /min BP Systolic Sitting 124 mmHg BP Diastolic Sitting 74 mmHg Respiratory Rate 18 /min Pain Level 5 when in use BMI (Body Mass Index) 51.6 kg/m2 12/09/2016 Height 66 inches 5'6" Heart Rate 88 /min BP Systolic 120 mmHg BP Diastolic 78 mmHg Respiratory Rate 16 /min Pain Level 4 O2 % BldC Oximetry 98 % 11/18/2016 Height 66 inches 5'6" Weight 320.00 lb BP Systolic Sitting 122 mmHg BP Diastolic Sitting 72 mmHg Respiratory Rate 16 /min Pain Level 3 BMI (Body Mass Index) 51.6 kg/m2 11/17/2016 Height 66 inches 5'6" Weight 320.00 lb Heart Rate 78 /min BP Systolic Sitting 124 mmHg BP Diastolic Sitting 74 mmHg Respiratory Rate 17 /min Pain Level 3 BMI (Body Mass Index) 51.6 kg/m2 11/16/2016 Height 66 inches 5'6" Heart Rate 114 /min BP Systolic 128 mmHg BP Diastolic 78 mmHg Respiratory Rate 28 /min No diffucties breathing Pain Level 5 O2 % BldC Oximetry 98 % 11/04/2016 Height 66 inches 5'6" Weight 320.00 lb Heart Rate 86 /min Respiratory Rate 18 /min BMI (Body Mass Index) 51.6 kg/m2 10/23/2016 Height 66 inches 5'6" Weight 320.00 lb Heart Rate 80 /min BP Systolic 124 mmHg BP Diastolic 90 mmHg Respiratory Rate 18 /min Body Temperature 97.5 F Pain Level 0 BMI (Body Mass Index) 51.6 kg/m2 10/06/2016 Height 66 inches 5'6" Weight 320.00 lb Respiratory Rate 24 /min Pain Level 4 BMI (Body Mass Index) 51.6 kg/m2 09/25/2016 Height 66 inches 5'6" Weight 320.00 lb Respiratory Rate 18 /min Body Temperature 99.1 F Pain Level 5 BMI (Body Mass Index) 51.6 kg/m2 09/02/2016 Height 66 inches 5'6" Weight 320.00 lb BP Systolic 118 mmHg BP Diastolic 68 mmHg BMI (Body Mass Index) 51.6 kg/m2 08/26/2016 Height 66 inches 5'6" Weight 320.00 lb BP Systolic 124 mmHg BP Diastolic 76 mmHg BMI (Body Mass Index) 51.6 kg/m2 08/21/2016 Height 66 inches 5'6" Weight 320.00 lb O2 % BldC Oximetry 7 % BMI (Body Mass Index) 51.6 kg/m2 Results Test Date Test Result H/L Range Note Laboratory test 07/05/2017 Point of Care 94 mg/dL 70-100 1 finding Glucose Wound Culture/Sensi 10/26/2016 Wound/Misc SEE RESULT BELOW 2, 3 Culture-Gram Stain Laboratory test 10/26/2016 Anaerobic Culture SEE RESULT BELOW 2, 4 finding Laboratory test 10/26/2016 Point of Care 94 mg/dL 74-106 5 finding Glucose Laboratory test 10/26/2016 (HCG) Negative Negative 6 finding Urine Laboratory test 10/26/2016 Surgical Pathology SEE RESULT BELOW 7 finding Laboratory test 09/21/2016 Point of Care 109 mg/dL High 74-106 8 finding Glucose Laboratory test 09/21/2016 (HCG) Negative Negative 9 finding Urine 1 Cleaner And Preparer: [id number] 2 RIGHT FOOT 3 SEE RESULT BELOW Name: ILA SANTANAREJI Sargent : [address]: Gino Liao MD Acct: [id number] Unit: [id number] AGE: 30 Location: OR Re10/26/16 SEX: F Status: DEP SDC SPEC: [id number] DOMINIK: 10/26/16-[address] [facility] [address]: Gino Liao MD REQ: [id number] RECD: 10/27/16 STATUS: BALJEET ADKINS DR: Dano Kaminski MD _ SOURCE: FOOT,RIGHT SPDESC: ORDERED: Culture Stain COMMENTS: RIGHT FOOT Procedure Result Reported Site Wound/Misc Gram Stain Final 10/27/16- 1058 ML No Neutrophils Observed No Organisms Seen Wound/Misc Culture Final 10/29/16- 1043 ML Organism 1 NORMAL YOLY Quantity 1+ * ML - MAIN LAB ([facility]) . END OF REPORT * ML=Testing performed at Main Lab DEPARTMENT OF PATHOLOGY, [address] [place] [address] Oswaldo Cobos M.D. Director [facility] # [id number] 4 SEE RESULT BELOW Name: LORI SANTANA : [address]: Gino Liao MD Acct: [id number] Unit: [id number] AGE: 30 Location: OR Re10/26/16 SEX: F Status: BREE SHEETSC SPEC: [id number] DOMINIK: 10/26/16-[address] [facility] [address]: Gino Liao MD REQ: [id number] RECD: 10/27/16 STATUS: BALJEET ADKINS DR: Dano Kaminski MD _ SOURCE: WOUND SPDESC: ORDERED: Anaerobic Cult Procedure Result Reported Site Anaerobic Culture Final 10/31/16- 801 ML Anaerobe Culture No Anaerobes Day 4 * ML - MAIN LAB ([facility]) . END OF REPORT * ML=Testing performed at Main Lab DEPARTMENT OF PATHOLOGY, [address] [place] [address] Oswaldo Cobos M.D. Director [facility] # [id number] 5 Cleaner And Preparer: DANIEL MCNAIR 6 If is still suspected, please repeat test after 48 to 72 hours. This test detects intact HCG only and is indicated for the early detection of . 7 SEE RESULT BELOW Name: LORI SANTANA : [address]: Gino Liao MD Acct: [id number] Unit: [id number] AGE: 30 Location: OR Re10/26/16 SEX: F Status: BREE [facility] [place] SPEC: [id number] DOMINIK: 10/26/16- [facility] DR: Gino Liao MD REQ: [id number] RECD: 10/27/16-1007 STATUS: SOUT _ ORDERED: Decal, LEVEL I, LEVEL III FINAL DIAGNOSIS 1. Foot, right, hardware removal: Foreign body (orthopedic hardware) (Gross diagnosis). 2. 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 COMMENT: Deeper levels of sectioning, as well as pankeratin and CD68 immunostains, with appropriately reacting controls, were performed on sections cut from specimen 2 and support the diagnosis. PRE-OPERATIVE DIAGNOSIS Posterior tibial tendon tear GROSS DESCRIPTION 1. The specimen is received fresh labeled, Hardware Right Foot, and consists of two silver metallic threaded Abisai-headed screws measuring 2.4 x 0.3 cm and 3.5 x 0.3 cm. Received separately in the same container are two 0.7 x 0.1 cm silver metallic circular washers. Per established hospital medical staff protocol, no tissue is submitted. Gross only. 2. The specimen is received in formalin labeled, Accessory Navicular, and consists of two montes irregular bone fragments aggregating 2.6 x 2.5 by up to 0.7 cm. Pipelines Supervisor sections, one cassette following decalcification. Signed (signature on file) Ema Alas MD 1058 END OF REPORT * ML=Testing performed at Main Lab DEPARTMENT OF PATHOLOGY, [address] [place] [address] Oswaldo Cobos M.D. Director [facility] # [id number] 8 Cleaner And Preparer: PAGE Boo 9 If is still suspected, please repeat test after 48 to 72 hours. This test detects intact HCG only and is indicated for the early detection of . Procedures Date CPT Code Description Status 07/20/2017 35635 Short Arm Cast Application Completed 07/13/2017 31251 Short Arm Cast Application Completed 07/05/2017 47270 Arthrodesis CMC JT Thumb W/ Autograft Completed 07/05/2017 72082 Arthrodesis CMC JT Thumb W/ Autograft Completed 05/18/2017 04965 Rad Exam; Hand Comp Completed 05/18/2017 07058 Inject/Drain Joint/Bursa Small Completed 12/09/2016 40034 Rad Exam; Foot Comp Completed 11/17/2016 58801 application of short leg splint Completed 11/16/2016 91754 Short Leg Cast Completed 11/04/2016 56896 Short Leg Cast Completed 10/26/2016 91140 Transfer Tendon Ant/Post Tibial Deep Completed 10/26/2016 40429 Transfer Tendon Ant/Post Tibial Deep Completed 10/26/2016 05643 Removal Implant Deep Wire,Screw Nail,Kong Or Plate Completed 10/06/2016 05291 Short Leg Cast Completed 09/25/2016 44769 Short Leg Cast Completed 09/21/2016 18242 Osteotomy Calcaneus Dwyers Or Chambers Type Procedure Completed 09/21/2016 39287 Osteotomy Calcaneus Dwyers Or Chambers Type Procedure Completed Encounters Type Date Location Provider CPT E/M Dx Office Visit 07/13/2017 [facility] [address] G47.9 8:00a [facility] G47.50 G25.81 E66.01 Z68.43 R35.1 R40.0 R12 Office Visit 06/15/2017 8:15a [facility] [address] M18.0 [facility] [place] Office Visit 05/19/2017 3:15p [facility] Gino Liao 78661 M65.871 [facility] At [facility] Office Visit 05/18/2017 9:00a [facility] [address] M18.11 [facility] [place] M79.641 Office Visit 04/28/2017 3:45p [facility] Gino Liao 12637 M76.821 [facility] Office Visit 04/07/2017 2:30p [facility] Gino Liao 77619 M76.821 [facility] At [facility] M76.822 Office Visit 03/10/2017 2:15p [facility] Gino Liao 63500 M76.821 [facility] At [facility] Office Visit 09/02/2016 3:15p [facility] G[facility] Liao 68641 M76.821 [facility] At [facility] Office Visit 08/26/2016 2:45p [facility] G[facility] Liao 64041 M76.821 [facility] At [facility] M72.2 Office Visit 08/21/2016 2:30p [facility] [address] Q66.89 [facility] [place] M72.2 Office Visit 10/14/2012 1:15p [facility] Gino Liao 06228 755.67 C.MDamaris Bear Plan of Care Future Appointment(s):08/17/2017 11:00 am - Gino Narayan MD at [facility] At Apr[facility]oes22/25/2018 1:00 pm - Vincent Camp M.D. at [place] [facility]/11/2017 9:00 am - Gino Liao M.D. at [facility] At Kcnbatlp42/08/2018 8:15 am - Madhuri Couch DNP, RN, CONCRETE SPREADER- at [facility]07/28/2017 - Gino Narayan, MDM18.0 Bilateral primary osteoarth of first carpometacarp jointsFollow up:Follow up: 3 weeks
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
--- OUTSIDE RECORDS SUMMARY | 2017-07-30 07:28 | XMS REPORT ---
:1985 External Reference #:[id number] [facility] Address [address] [address] Phone [phone] Care Team Providers Name Role Phone Dano Kaminski MD Primary Care Physician Unavailable Payers Type Date Identification Numbers Payment Provider Subscriber Commercial Effective: Policy Number: Xander Santana 2012 [id number] Group Name: [id number] [address] PayID: [id number] [place] [address] Problems Date Description Provider Status Onset: 05/18/2017 Localized, primary osteoarthritis of the Gino Narayan MD Active hand Family History Date Family Member(s) Problem(s) Comments General Heart Disease General Cancer Social History Type Date Description Comments Marital Status Lives With Family Occupation [employer] Cigarette Use Former Cigarette Smoker ETOH Use [...] Hx Suspension 50mcg/Act Use 1 Unknown Propionate [place] In - Each 08/20 Nostril Green Vibrance [...] Sylvain Vital Signs Date Vital Result Comment 07/14/2017 Height 66 inches 5'6" Weight 330.00 [...] (HCG) Negative Negative 9 finding Urine 1 Darkroom Technician: [id number] 2 RIGHT FOOT 3 SEE RESULT BELOW Name: LORI SANTANA : [address]: Gino Liao MD Acct: [id number] Unit: [id number] AGE: 30 Location: OR Re10/26/16 SEX: F Status: DEP SDC SPEC: [id number] DOMINIK: 10/26/16-1537 [facility] DR: Gino Liao MD REQ: [id number] RECD: 10/27/16-1008 STATUS: BALJEET ADKINS DR: Dano Kaminski MD _ SOURCE: FOOT,RIGHT SPDESC: ORDERED: Culture Stain COMMENTS: RIGHT FOOT Procedure Result Reported Site Wound/Misc Gram Stain Final 10/27/16- 1058 ML No Neutrophils Observed No Organisms Seen Wound/Misc Culture Final 10/29/16- 1043 ML Organism 1 NORMAL YOLY Quantity 1+ * ML - MAIN LAB ([facility]) . END OF REPORT * ML=Testing performed at Main Lab DEPARTMENT OF PATHOLOGY, [address] [place] [address] Oswaldo Cobos M.D. Director [facility] # [id number] 4 SEE RESULT BELOW Name: LORI SANTANA : [address]: Gino Liao MD Acct: [id number] Unit: [id number] AGE: 30 Location: OR Re10/26/16 SEX: F Status: DEP SDC SPEC: [id number] DOMINIK: 10/26/16-1537 [facility] DR: Gino Liao MD REQ: [id number] RECD: 10/27/16-100 STATUS: COMP [facility] DR: Dano Kaminski MD _ SOURCE: WOUND SPDESC: ORDERED: Anaerobic Cult Procedure Result Reported Site Anaerobic Culture Final 10/31/16801 ML Anaerobe Culture No Anaerobes Day 4 * ML - MAIN LAB ([facility]) . END OF REPORT * ML=Testing performed at Main Lab DEPARTMENT OF PATHOLOGY, [address] [place] [address] Oswaldo Cobos M.D. Director [facility] # [id number] 5 Darkroom Technician: [id number] BRODY MCNAIR 6 If is still suspected, please repeat test after 48 to 72 hours. This test detects intact HCG only and is indicated for the early detection of . 7 SEE RESULT BELOW Name: LORI SANTANA : [address]: Gino Liao MD Acct: [id number] Unit: [id number] AGE: 30 Location: OR Re10/26/16 SEX: F Status: DEP [facility] SPEC: [id number] DOMINIK: 10/26/16- [facility] DR: Gino Liao MD REQ: [id number] RECD: 10/27/16-1007 STATUS: SOUT _ ORDERED: Decal, [...] x 2.5 by up to 0.7 cm. Drug And Alcohol Counselor sections, one cassette following decalcification. Signed (signature on file) Ema Alas MD 1058 END OF REPORT * ML=Testing performed at Main Lab DEPARTMENT OF PATHOLOGY, [address] [place] [address] Oswaldo Cobos M.D. Director [facility] # [id number] 8 Darkroom Technician: PAGE Boo 9 If is still suspected, please repeat test after 48 to 72 hours. This test detects intact HCG only and is indicated for the early detection of . Procedures Date CPT Code Description Status 07/13/2017 90508 Short Arm Cast Application Completed 07/05/2017 21531 Arthrodesis CMC JT Thumb W/ Autograft Completed 07/05/2017 52510 Arthrodesis CMC JT Thumb W/ Autograft Completed 05/18/2017 05705 Rad Exam; Hand Comp Completed 05/18/2017 72529 Inject/Drain Joint/Bursa Small Completed 12/09/2016 16204 Rad Exam; Foot Comp Completed 11/17/2016 00274 application of short leg splint Completed 11/16/2016 49129 Short Leg Cast Completed 11/04/2016 80284 Short Leg Cast Completed 10/26/2016 49881 Transfer Tendon Ant/Post Tibial Deep Completed 10/26/2016 76937 Transfer Tendon Ant/Post Tibial Deep Completed 10/26/2016 10669 Removal Implant Deep Wire,Screw Nail,Kong Or Plate Completed 10/06/2016 38742 Short Leg Cast Completed 09/25/2016 01927 Short Leg Cast Completed 09/21/2016 91790 Osteotomy Calcaneus Lizets Or Diamante Type Procedure Completed 09/21/2016 84698 Osteotomy Calcaneus Lizets Or Chambers Type Procedure Completed Encounters Type Date Location Provider CPT E/M Dx Office Visit 07/14/2017 [facility] Gino Liao 83168 M76.821 9:30a Of [facility] [place] GisselleEmiliana G57.51 Office Visit 06/15/2017 8:15a [facility] [address] M18.0 [facility] [place] Office Visit 05/19/2017 3:15p [facility] Gino Liao, 33652 M65.871 [facility] 05/18/2017 9:00a [facility] [place] [address] M18.11 [facility] [place] M79.641 Office Visit 04/28/2017 3:45p [facility] Gino Liao 47026 M76.821 [facility] 04/07/2017 2:30p [facility] Gino Liao 79050 M76.821 [facility] M76.822 Office Visit 03/10/2017 2:15p [facility] Gino Liao 35887 M76.821 [facility] Visit 09/02/2016 3:15p [facility] Gino Liao 43444 M76.821 [facility] Office Visit 08/26/2016 2:45p [facility] Gino Liao 68276 M76.821 [facility] M72.2 Office Visit 08/21/2016 2:30p [facility] [address] Q66.89 [facility] M72.2 Office Visit 10/14/2012 1:15p [facility] Of Gino Liao, 57389 755.67 Art.MDamaris Bear Plan of Care Future Appointment(s):09/02/2017 1:00 pm - Vincetn Camp M.D. at [place]/ [facility]08/11/2017 9:00 am - Gino Liao M.D. at [facility] Yjpljlcu62/12/2017 7:45 am - Gino Narayan MD at [facility] Pobstehl70/08/2018 8:15 am - Madhuri Couch DNP, RN, AUTOMOTIVE GENERATOR REPAIRER- at [facility]07/16/2017 10:00 am - Gino Narayan MD at [facility]07/14/2017 - Gino Liao M.D.M76.821 Posterior tibial tendinitis, right legReferral:Marilee Bonilla MD , Physical Medicine/RehabFollow up:4-5 ndxleT91.51 Tarsal tunnel syndrome, right lower limb
--- OUTSIDE RECORDS SUMMARY | 2017-07-30 07:28 | XMS REPORT ---
:1985 External Reference #:[id number] Author Organization [facility] Address [address] [address] Phone [phone] Care Team Providers Name Role Phone Dano Kaminski MD Primary Care Physician Unavailable Payers Type Date Identification Numbers Payment Provider Subscriber Commercial Effective: Policy Number: Xander Santana 2012 [id number] Group Name: [id number] [address] PayID: [id number] [place] [address] Problems Date Description Provider Status Onset: 05/18/2017 Localized, primary osteoarthritis of the Gino Narayan MD Active hand Family History Date Family Member(s) Problem(s) Comments General Heart Disease General Cancer Social History Type Date Description Comments Marital Status Lives With Family Occupation [employer] Cigarette Use Former Cigarette Smoker ETOH [...] Hx Suspension 50mcg/Act Use 1 Unknown Propionate [place] In - Each 08/20 Nostril Green Vibrance Hx 1 scoop Unknown into - liquid 04/13 Cetirizine HCL Hx Tablets 10mg 1 by mouth Unknown every day - 06/14 Flovent Diskus Hx [...] Sylvain Vital Signs Date Vital Result Comment 07/20/2017 Height 66 inches 5'6" Weight 335.00 [...] (HCG) Negative Negative 9 finding Urine 1 Aircraft Engine Installer: [id number] 2 RIGHT FOOT 3 SEE RESULT BELOW Name: LORI SANTANA : [address]: Gino Liao MD Acct: [id number] Unit: [id number] AGE: 30 Location: OR Re10/26/16 SEX: F Status: DEP SDC SPEC: [id number] DOMINIK: 10/26/16-[address] [facility] [address]: Gino Liao MD REQ: [id number] RECD: 10/27/16 STATUS: BALJEET ADKINS DR: Dano Kaminski MD _ SOURCE: FOOT,RIGHT SPDESC: ORDERED: Culture Stain COMMENTS: RIGHT FOOT Procedure Result Reported Site Wound/Misc Gram Stain Final 10/27/16- 1058 ML No Neutrophils Observed No Organisms Seen Wound/Misc Culture Final 10/29/16- 1043 ML Organism 1 NORMAL YOLY Quantity 1+ * ML - MAIN LAB ([facility]) . END OF REPORT * ML=Testing performed at Main Lab DEPARTMENT OF PATHOLOGY, [address] [place] [address] Oswaldo Cobos M.D. Director [facility] # [id number] 4 SEE RESULT BELOW Name: ILA SANTANAREJI Sargent : [address]: Gino Liao MD Acct: [id number] Unit: [id number] AGE: 30 Location: OR Re10/26/16 SEX: F Status: BREE SHEETSC SPEC: [id number] DOMINIK: 10/26/16-[address]: Gino Liao MD REQ: [id number] RECD: 10/27/16 STATUS: COMP [facility] DR: Dano Kaminski MD _ SOURCE: WOUND SPDES: ORDERED: Anaerobic Cult Procedure Result Reported Site Anaerobic Culture Final 10/31/16- 0802 ML Anaerobe Culture No Anaerobes Day 4 * ML - MAIN LAB ([facility]) . END OF REPORT * ML=Testing performed at Main Lab DEPARTMENT OF PATHOLOGY, [address] [place] [address] Oswaldo Cobos M.D. Director [facility] # [id number] 5 Aircraft Engine Installer: DANIEL MCNAIR 6 If is still suspected, please repeat test after 48 to 72 hours. This test detects intact HCG only and is indicated for the early detection of . 7 SEE RESULT BELOW Name: LORI SANTANA : [address]: Gino Liao MD Acct: [id number] Unit: [id number] AGE: 30 Location: OR Re10/26/16 SEX: F Status: DEP [facility] SPEC: [id number] DOMINIK: 10/26/16- [facility] DR: Gino Liao MD REQ: [id number] RECD: 10/27/16-1007 STATUS: SOUT _ ORDERED: Decal, [...] x 2.5 by up to 0.7 cm. Medical Data Entry Clerk sections, one cassette following decalcification. Signed (signature on file) Ema Alas MD 1058 END OF REPORT * ML=Testing performed at Main Lab DEPARTMENT OF PATHOLOGY, [address] [place] [address] Oswaldo Cobos M.D. Director [facility] # [id number] 8 Aircraft Engine Installer: [id number] Chao Boo 9 If is still suspected, please repeat test after 48 to 72 hours. This test detects intact HCG only and is indicated for the early detection of . Procedures Date CPT Code Description Status 07/13/2017 03677 Short Arm Cast Application Completed 07/05/2017 87457 Arthrodesis CMC JT Thumb W/ Autograft Completed 07/05/2017 64206 Arthrodesis CMC JT Thumb W/ Autograft Completed 05/18/2017 62701 Rad Exam; Hand Comp Completed 05/18/2017 58069 Inject/Drain Joint/Bursa Small Completed 12/09/2016 16793 Rad Exam; Foot Comp Completed 11/17/2016 57915 application of short leg splint Completed 11/16/2016 99939 Short Leg Cast Completed 11/04/2016 01797 Short Leg Cast Completed 10/26/2016 76984 Transfer Tendon Ant/Post Tibial Deep Completed 10/26/2016 46636 Transfer Tendon Ant/Post Tibial Deep Completed 10/26/2016 67336 Removal Implant Deep Wire,Screw Nail,Kong Or Plate Completed 10/06/2016 87017 Short Leg Cast Completed 09/25/2016 28452 Short Leg Cast Completed 09/21/2016 40257 Osteotomy Calcaneus Dwyers Or Chambers Type Procedure Completed 09/21/2016 27077 Osteotomy Calcaneus Dwyers Or Chambers Type Procedure Completed Encounters Type Date Location Provider CPT E/M Dx Office Visit 06/15/2017 [place] [address] M18.0 8:15a Of [facility] [place] Office Visit 05/19/2017 [facility] Gino Liao 56987 M65.871 3:15p Of [facility] Office Visit 05/18/2017 [place] [address] M18.11 9:00a Of [facility] [place] M79.641 Office Visit 04/28/2017 3:45p [facility] Of Gino Liao 95946 M76.821 [facility] Office Visit 04/07/2017 2:30p [facility] Of Gino Liao 86518 M76.821 [facility] M76.822 Office Visit 03/10/2017 2:15p [facility] Of Gino Liao 01337 M76.821 [facility] Office Visit 09/02/2016 3:15p [facility] Of Gino Liao 92384 M76.821 [facility] Office Visit 08/26/2016 2:45p [facility] Of Gino Liao 99122 M76.821 [facility] M72.2 Office Visit 08/21/2016 2:30p [facility] [address] Q66.89 [facility] [place] M72.2 Office Visit 10/14/2012 1:15p [facility] Of Gino Liao 09388 755.67 Art.MDamaris Bear Plan of Care Future Appointment(s):07/28/2017 8:00 am - Gino Narayan MD at [facility] Of [facility]09/02/2017 1:00 pm - Vincent Camp M.D. at [place]/ [facility]08/11/2017 9:00 am - Gino Liao M.D. at [facility] At Skpgyyow37/08/2018 8:15 am - Madhuri Couch DNP , RN, BOILING HOUSE OILER-BC at [facility] Services [facility]
--- OUTSIDE RECORDS SUMMARY | 2017-07-30 07:29 | XMS REPORT ---
:1985 External Reference #:[id number] Author Organization [facility] Address [address] [address] Phone [phone] Care Team Providers Name Role Phone Dano Kaminski MD Primary Care Physician Unavailable Payers Type Date Identification Numbers Payment Provider Subscriber Commercial Effective: Policy Number: Xander Santana 2012 [id number] Group Name: [id number] [address] PayID: [id number] [place] [address] Problems Date Description Provider Status Onset: 05/18/2017 Localized, primary osteoarthritis of the Gino Narayan MD Active hand Family History Date Family Member(s) Problem(s) Comments General Heart Disease General Cancer Social History Type Date Description Comments Marital Status Lives With Family Occupation [employer] Cigarette Use Former Cigarette Smoker ETOH Use [...] 2 teaspoons Keshawn, in liquid M.D. daily. Bariatric 11/05 Active 1unit folding Gino Wheelchair s wheelchair Keshawn, to be used M.D. as needed, needs elevated leg rest, nees to accomodate 325lbs Hydrochlorothiazi Active Capsules 12.5mg TK 1 C PO Unknown de D Ranitidine HCL Active Tablets 300mg TK 1 T PO Unknown 0000 D Montelukast Active Tablets 10mg TK 1 T PO Unknown Sodium 0000 qd Metformin HCL Active Tablets 500mg TK 1 T PO Unknown bid Pantoprazole Active Tablets DR 40mg 1 by mouth Unknown Sodium twice daily Fluticasone Active Suspension 50mcg/Act 2 sprays Unknown Propionate each nostril daily Ventolin HFA Active Aerosol 108(90Bas 2 puffs Unknown /0000 e) prn mcg/Act Symbicort Active Aerosol 160-4.5mc 2 puffs Unknown 0000 g/Act bid Ketotifen Active Solution 0.025% Instill 1 Unknown GTT In OU bid prn Xyzal Allergy Active Tablets 10mg 1 by mouth Unknown 24HR /0000 every day Iron Active daily Unknown Tramadol HCL 10/27 Hx Tablets 50mg 60tab [...] s right Keshawn, - lower M.D. 11/03 extremity Oxycodone HCL 09/21 Hx Tablets 5mg 60tab 1-2 tabs s by mouth Keshawn, - every 4-6 M.D. 09/15 hours needed Clindamycin HCL Hx Capsules 300mg TK 1 C PO Unknown /0000 Q 6 H - 08/20 Pulmicort Hx Aerosol 180mcg/Ac Inhale 1 Unknown Flexhaler t puff PO Q - 12 H 08/20 Fluticasone Hx Suspension 50mcg/Act Use 1 Unknown Propionate [place] In - Each 08/20 Nostril Green Vibrance [...] Sylvain Vital Signs Date Vital Result Comment 07/13/2017 Height 66 inches 5'6" Weight 330.00 [...] (HCG) Negative Negative 9 finding Urine 1 Sprayer Hand: [id number] 2 RIGHT FOOT 3 SEE RESULT BELOW Name: LORI SANTANA : [address]: Gino Liao MD Acct: [id number] Unit: [id number] AGE: 30 Location: OR Re10/26/16 SEX: F Status: DEP SDC SPEC: [id number] DOMINIK: 10/26/16-[address]: Gino Liao MD REQ: [id number] RECD: 10/27/16 STATUS: BALJEET ADKINS DR: Dano Kaminski MD _ SOURCE: FOOT,RIGHT SPDESC: ORDERED: Culture Stain COMMENTS: RIGHT FOOT Procedure Result Reported Site Wound/Misc Gram Stain Final 10/27/16- 1058 ML No Neutrophils Observed No Organisms Seen Wound/Misc Culture Final 10/29/16- 1043 ML Organism 1 NORMAL YOLY Quantity 1+ * ML - MAIN LAB ([facility]) . END OF REPORT * ML=Testing performed at Main Lab DEPARTMENT OF PATHOLOGY, [address] [place] [address] Oswaldo Cobos M.D. Director [facility] # [id number] 4 SEE RESULT BELOW Name: LORI SANTANA : [address]: Gino Liao MD Acct: [id number] Unit: [id number] AGE: 30 Location: OR Re10/26/16 SEX: F Status: DEP KORTNEYC SPEC: [id number] DOMINIK: 10/26/16-1537 [facility] [address]: Gino Liao MD REQ: [id number] RECD: 10/27/16-1009 STATUS: BALJEET ADKINS DR: Dano Kaminski MD _ SOURCE: WOUND SPDESC: ORDERED: Anaerobic Cult Procedure Result Reported Site Anaerobic Culture Final 10/31/16- 0802 ML Anaerobe Culture No Anaerobes Day 4 * ML - MAIN LAB ([facility]) . END OF REPORT * ML=Testing performed at Main Lab DEPARTMENT OF PATHOLOGY, [address] [place] [address] Oswaldo Cobos M.D. Director [facility] # [id number] 5 Sprayer Hand: [id number] BRODY MCNAIR 6 If is still suspected, please repeat test after 48 to 72 hours. This test detects intact HCG only and is indicated for the early detection of . 7 SEE RESULT BELOW Name: LORI SANTANA : [address]: Gino Liao MD Acct: [id number] Unit: [id number] AGE: 30 Location: OR Re/20/17 SEX: F Status: DEP [facility] SPEC: [id number] DOMINIK: 10/26/16- SUBM DR: Gino Liao MD REQ: [id number] RECD: 10/27/16-1007 STATUS: SOUT _ ORDERED: Decal, [...] x 2.5 by up to 0.7 cm. Rn Acute Dialysis sections, one cassette following decalcification. Signed (signature on file) Ema Alas MD 1058 END OF REPORT * ML=Testing performed at Main Lab DEPARTMENT OF PATHOLOGY, [address] [place] [address] Oswaldo Cobos M.D. Director [facility] # [id number] 8 Sprayer Hand: [id number] Chao Gilth 9 If is still suspected, please repeat test after 48 to 72 hours. This test detects intact HCG only and is indicated for the early detection of . Procedures Date CPT Code Description Status 07/05/2017 52969 Arthrodesis CMC JT Thumb W/ Autograft Completed 07/05/2017 95311 Arthrodesis CMC JT Thumb W/ Autograft Completed 05/18/2017 43022 Rad Exam; Hand Comp Completed 05/18/2017 21145 Inject/Drain Joint/Bursa Small Completed 12/09/2016 99478 Rad Exam; Foot Comp Completed 11/17/2016 75443 application of short leg splint Completed 11/16/2016 30843 Short Leg Cast Completed 11/04/2016 77745 Short Leg Cast Completed 10/26/2016 87352 Transfer Tendon Ant/Post Tibial Deep Completed 10/26/2016 55849 Transfer Tendon Ant/Post Tibial Deep Completed 10/26/2016 13674 Removal Implant Deep Wire,Screw Nail,Kong Or Plate Completed 10/06/2016 99782 Short Leg Cast Completed 09/25/2016 39564 Short Leg Cast Completed 09/21/2016 07012 Osteotomy Calcaneus Lizets Or Chambers Type Procedure Completed 09/21/2016 34921 Osteotomy Calcaneus Dwyers Or Chambers Type Procedure Completed Encounters Type Date Location Provider CPT E/M Dx Office Visit 07/13/2017 [facility] [address] G47.9 8:00a [facility] E66.01 Office Visit 06/15/2017 8:15a [facility] [place] [address] M18.0 [facility] [place] Office Visit 05/19/2017 3:15p [facility] Of Gino Liao 81330 M65.871 [facility] [place] Marianela Office Visit 05/18/2017 9:00a [facility] [place] [address] M18.11 [facility] [place] M79.641 Office Visit 04/28/2017 3:45p [facility] Gino Liao, 03859 M76.821 [facility] Office Visit 04/07/2017 2:30p [facility] Gino Liao, 24180 M76.821 [facility] M76.822 Office Visit 03/10/2017 2:15p [facility]ino Liao, 96541 M76.821 [facility] Office Visit 09/02/2016 3:15p [facility] Gino Liao, 59929 M76.821 [facility] Office Visit 08/26/2016 2:45p [facility] Gino Liao, 38405 M76.821 [facility] M72.2 Office Visit 08/21/2016 2:30p [facility] [address] Q66.89 [facility]72.2 Office Visit 10/14/2012 1:15p [facility] Of Gino Liao, 86190 755.67 .MDamaris Bear Plan of Care Future Appointment(s):08/16/2017 8:15 am - Madhuri Couch DNP, RN, JEWEL BLOCKER AND SAWYER-BC at [facility] Of [facility]07/16/2017 10:00 am - Gino Narayan MD at [facility] Of .M.ADiandra07/13/2017 - Cathy Benjamin MDG47.9 Sleep disorder, unspecifiedNew Orders:Sleep StudyFollow up:1 klppfI24.01 Morbid ( severe) obesity due to excess calories
--- OUTSIDE RECORDS SUMMARY | 2017-07-30 07:29 | XMS REPORT ---
:1985 External Reference #:[id number] [facility] Address [address] [address] Phone [phone] Care Team Providers Name Role Phone Dano Kaminski MD Primary Care Physician Unavailable Payers Type Date Identification Numbers Payment Provider Subscriber Commercial Effective: Policy Number: Xander Santana 2012 [id number] Group Name: [id number] [address] PayID: [id number] [place] [address] Problems Date Description Provider Status Onset: 05/18/2017 Localized, primary osteoarthritis of the Gino Narayan MD Active hand Family History Date Family Member(s) Problem(s) Comments General Heart Disease General Cancer Social History Type Date Description Comments Marital Status Lives With Family Occupation [employer] Cigarette Use Former Cigarette Smoker ETOH Use [...] Hx Suspension 50mcg/Act Use 1 Unknown Propionate [place] In - Each 08/20 Nostril Green Vibrance [...] (HCG) Negative Negative 9 finding Urine 1 Developer Advocate: [id number] 2 RIGHT FOOT 3 SEE RESULT BELOW Name: LORI SANTANA : [address]: Gino Liao MD Acct: [id number] Unit: [id number] AGE: 30 Location: OR Re10/26/16 SEX: F Status: DEP SDC SPEC: [id number] DOMINIK: 10/26/16-[address]: Gino Liao MD REQ: [id number] RECD: 10/27/16 STATUS: BALJEET ADKINS DR: Dano Kaminski MD _ SOURCE: FOOT,RIGHT SPDESC: ORDERED: Culture Stain COMMENTS: RIGHT FOOT Procedure Result Reported Site Wound/Misc Gram Stain Final 10/27/16- 1058 ML No Neutrophils Observed No Organisms Seen Wound/Misc Culture Final 10/29/16- 1043 ML Organism 1 NORMAL YOLY Quantity 1+ * ML - MAIN LAB ([facility]) . END OF REPORT * ML=Testing performed at Main Lab DEPARTMENT OF PATHOLOGY, [address] [place] [address] Oswaldo Cobos M.D. Director [facility] # [id number] 4 SEE RESULT BELOW Name: LORI SANTANA : [address]: Gino Liao MD Acct: [id number] Unit: [id number] AGE: 30 Location: OR Re10/26/16 SEX: F Status: BREE SHEETSC SPEC: [id number] DOMINIK: 10/26/16-[address] [facility] [address]: Gino Liao MD REQ: [id number] RECD: 10/27/16-1008 STATUS: BALJEET ADKINS DR: Dano Kaminski MD _ SOURCE: WOUND SPDESC: ORDERED: Anaerobic Cult Procedure Result Reported Site Anaerobic Culture Final 10/31/16- 801 ML Anaerobe Culture No Anaerobes Day 4 * ML - MAIN LAB ([facility]) . END OF REPORT * ML=Testing performed at Main Lab DEPARTMENT OF PATHOLOGY, [address] [place] [address] Oswaldo Cobos M.D. Director [facility] # [id number] 5 Developer Advocate: [id number] BRODY MCNAIR 6 If is still suspected, please repeat test after 48 to 72 hours. This test detects intact HCG only and is indicated for the early detection of . 7 SEE RESULT BELOW Name: LORI SANTANA : [address]: Gino Liao MD Acct: [id number] Unit: [id number] AGE: 30 Location: OR Re10/26/16 SEX: F Status: DEP SDC SPEC: [id number] DOMINIK: 10/26/16- SUBM DR: Gino Liao MD REQ: [id number] RECD: 10/27/16-1007 STATUS: SOUT _ ORDERED: Decal, [...] x 2.5 by up to 0.7 cm. Home Service Technician sections, one cassette following decalcification. Signed (signature on file) Ema Alas MD 1058 END OF REPORT * ML=Testing performed at Main Lab DEPARTMENT OF PATHOLOGY, [address] [place] [address] Oswaldo Cobos M.D. Director YO # [id number] 8 Developer Advocate: PAGE Boo 9 If is still suspected, please repeat test after 48 to 72 hours. This test detects intact HCG only and is indicated for the early detection of . Procedures Date CPT Code Description Status 07/05/2017 29112 Arthrodesis CMC JT Thumb W/ Autograft Completed 07/05/2017 51779 Arthrodesis CMC JT Thumb W/ Autograft Completed 05/18/2017 79111 Rad Exam; Hand Comp Completed 05/18/2017 08501 Inject/Drain Joint/Bursa Small Completed 12/09/2016 07134 Rad Exam; Foot Comp Completed 11/17/2016 07768 application of short leg splint Completed 11/16/2016 76014 Short Leg Cast Completed 11/04/2016 71434 Short Leg Cast Completed 10/26/2016 22720 Transfer Tendon Ant/Post Tibial Deep Completed 10/26/2016 19432 Transfer Tendon Ant/Post Tibial Deep Completed 10/26/2016 48260 Removal Implant Deep Wire,Screw Nail,Kong Or Plate Completed 10/06/2016 73015 Short Leg Cast Completed 09/25/2016 79221 Short Leg Cast Completed 09/21/2016 57212 Osteotomy Calcaneus Babs Or Diamante Type Procedure Completed 09/21/2016 53679 Osteotomy Calcaneus Babs Or Diamante Type Procedure Completed Encounters Type Date Location Provider CPT E/M Dx Office Visit 06/15/2017 [place] [address] M18.0 8:15a [facility] Office Visit 05/19/2017 [facility] Services Gino Liao 08904 M65.871 3:15p [facility] Marianela Office Visit 05/18/2017 [place] [address] M18.11 9:00a [facility] M79.641 Office Visit 04/28/2017 3:45p [facility] Of Gino Liao 03207 M76.821 [facility] Marianela Office Visit 04/07/2017 2:30p [facility] Gino Liao, 46353 M76.821 [facility].822 Office Visit 03/10/2017 2:15p [facility] Gino Liao, 10836 M76.821 [facility] Visit 09/02/2016 3:15p [facility] Gino Liao 22621 M76.821 [facility] 08/26/2016 2:45p [facility] Gino Liao, 12907 M76.8[address] [facility] M72.2 Office Visit 08/21/2016 2:30p [facility] [place] [address] Q66.89 [facility]72.2 Office Visit 10/14/2012 1:15p [facility] Of Gino Liao, 08932 755.67 Vaibhav Bear Plan of Care Future Appointment(s):07/20/2017 7:45 am - Gino Narayan MD at [facility]08/16/2017 8:15 am - Madhuri Couch DNP, RN, VOICE STUDIES DIRECTOR- BC at [facility]07/16/2017 10:00 am - Gino Narayan MD at [facility] Of Vaibhav
[2017-07-30 07:37] VITALS: BP 142/92
== END 2017-07-30 07:58 | disposition home or self-care (01) ==
LOC: UCCORT 07:19
DX: M62.838 Other muscle spasm (principal); R05 Cough; J40 Bronchitis, not specified as acute or chronic; E73.9 Lactose intolerance, unspecified; Z88.3 Allergy status to other anti-infective agents; Z88.5 Allergy status to narcotic agent; Z87.891 Personal history of nicotine dependence
CPT/HCPCS: 99212; G0463

== ENCOUNTER 2017-09-26 16:45 | Emergency (ER) | payer OTHER ==
--- OUTSIDE RECORDS SUMMARY | 2017-09-26 17:35 | XMS REPORT ---
:1985 External Reference #:[id number] Author Organization [facility] Address [address] [address] Phone [phone] Care Team Providers Name Role Phone Dano Kaminski MD Primary Care Physician Unavailable Payers Type Date Identification Numbers Payment Provider Subscriber Commercial Effective: Policy Number: Xanedr Santana 2012 [id number] Group Name: [id number] [address] PayID: [id number] [place] [address] Problems Date Description Provider Status Onset: 05/18/2017 Localized, primary osteoarthritis Gino Narayan MD Active of the hand Onset: 08/26/2017 Obstructive sleep apnea syndrome Madhuri Couch DNP, RN, Active CONDUCTOR/BRAKEMAN-BC Onset: 08/26/2017 Body mass index 40+ - severely Madhuri Couch DNP, RN, Active obese CONDUCTOR/BRAKEMAN-BC Family History Date Family Member(s) Problem(s) Comments General Heart Disease General Cancer Social History Type Date Description Comments Marital Status Lives With Family Occupation [employer] Medical leave 08/26/17 Occupation Currently Working Cigarette Use Former Cigarette Smoker Cigarette Use Former Cigarette Smoker 1 5-6 years. 1 ppd at most Pack Daily ETOH Use Denies alcohol use Smoking Patient is a former smoker Recreational Drug Use Denies Drug Use Daily Caffeine Consumes on average 2 cups of regular coffee per day Exercise Type/Frequency Exercises regularly Currently limited by injuries 08/26/17 Allergies, Adverse Reactions, Alerts Date Description Reaction Status Severity Comments 08/21/2016 Amoxicillin active 08/21/2016 Morphine active 08/21/2016 Sudafed active 11/16/2016 Cast Material active Hives and itching 04/28/2017 active Medications Medication Date Status Form Strength Qnty SIG Indications Ordering Provider Hydrochlorothiazi Active Capsules 12.5mg TK 1 C PO Unknown de D Ranitidine HCL Active Tablets 300mg TK 1 T PO Unknown 0000 D Montelukast Active Tablets 10mg TK 1 T PO Unknown Sodium 0000 qd Metformin HCL Active Tablets 500mg TK 1 T PO Unknown / bid Pantoprazole Active Tablets DR 40mg 1 by mouth Unknown Sodium twice daily Fluticasone Active Suspension 50mcg/Act 2 sprays Unknown Propionate each nostril daily Ventolin HFA Active Aerosol 108(90Bas 2 puffs Unknown e) prn mcg/Act Symbicort Active Aerosol 160-4.5mc 2 puffs Unknown / g/Act bid Ketotifen Active Solution 0.025% Instill 1 Unknown Fumarate 0000 GTT In OU bid prn Xyzal Allergy Active Tablets 10mg 1 by mouth Unknown 24HR every day Iron Active daily Unknown Cast 07/06 Hx Misc Right Gino Protector/Full-Ar upper gisselle Narayan Adult - extremity 08/26 Hydrocodone-Aceta 07/05 Hx Tablets 5-325mg 30tab 1 or 2 Gino min s tabs by Sylvain - mouth 08/10 every - hours as needed for pain Kratom 12/09 Hx Powder 2 teaspoons Keshawn, - in liquid M.D. 08/26 daily. (on hold) Bariatric 11/05 Hx 1unit folding Gino Wheelchair s wheelchair Keshawn, - to be used M.D. 08/26 as needed, needs elevated leg rest, nees to accomodate 325lbs Tramadol HCL 10/27 Hx Tablets 50mg 60tab 1-2 tablet s by mouth Sylvain, - every 4-6 03/09 hours needed pain Oxycodone HCL 10/26 Hx Tablets 5mg 40tab 1-2 tabs s by mouth Keshawn - every 4-6 M.D. 10/27 hours as needed Tramadol HCL 09/28 Hx Tablets 50mg 60tab 1-2 s tablets Keshawn, - every 6 M.D. 10/07 hours as needed Cast And Bandage 09/28 Hx Misc 1unit cast cover Gino Cover/Lower Leg s right Keshawn, - lower M.D. 11/03 extremity Oxycodone HCL 09/21 Hx Tablets 5mg 60tab 1-2 tabs s by mouth Keshawn, - every 4-6 M.D. 02 hours needed Clindamycin HCL Hx Capsules 300mg TK 1 C PO Unknown /0000 Q 6 H - 08/20 Pulmicort Hx Aerosol 180mcg/Ac Inhale 1 Unknown Flexhaler / t puff PO Q - 12 H 08/20 Fluticasone Hx Suspension 50mcg/Act Use 1 Unknown Propionate /0000 [place] In - Each 08/20 Nostril Green Vibrance Hx 1 scoop Unknown /0000 into - liquid 04/13 Cetirizine HCL Hx Tablets 10mg 1 by mouth Unknown /0000 every day - 06/14 Flovent Diskus Hx Aerosol 100mcg/Bl 1 Unknown /0000 ist inhalation - daily 02/08 Tramadol HCL Hx Tablets 50mg TK 1 To 2 Unknown /0000 TS PO Q 4 - To 6 H PRF 04/27 Pain. 6 Medications Administered in Office Medication Date Status Form Strength Qnty SIG Indications Ordering Provider Celestone 3 mg Administered Injection Gino and 3mg 017 MD Sylvain Vital Signs Date Vital Result Comment 08/26/2017 Height 66 inches 5'6" Weight 352.00 lb with shoes Heart Rate 108 /min BP Systolic Sitting 130 mmHg Left forearm BP Diastolic Sitting 80 mmHg Left forearm Respiratory Rate 22 /min O2 % BldC Oximetry 98 % On Ra BMI (Body Mass Index) 56.8 kg/m2 08/17/2017 Height 66 inches 5'6" Weight 335.00 lb Heart Rate 90 /min BP Systolic Sitting 124 mmHg BP Diastolic Sitting 68 mmHg Respiratory Rate 24 /min Pain Level 5 BMI (Body Mass Index) 54.1 kg/m2 07/28/2017 Height 66 inches 5'6" Weight 335.00 [...] Care 94 mg/dL 70-100 1 finding Glucose Laboratory test 10/26/2016 Point of Care 94 mg/dL 74-106 2 finding Glucose Laboratory test 10/26/2016 (HCG) Negative Negative 3 finding Urine Laboratory test 10/26/2016 Surgical Pathology SEE RESULT BELOW 4 finding Laboratory test 10/26/2016 Anaerobic Culture SEE RESULT BELOW 5, 6 finding Wound Culture/Sensi 10/26/2016 Wound/Misc SEE RESULT BELOW 5, 7 Culture-Gram Stain Laboratory test 09/21/2016 Point of Care 109 mg/dL High 74-106 8 finding Glucose Laboratory test 09/21/2016 (HCG) Negative Negative 9 finding Urine 1 Surgery Nurse: [id number] Surgery Nurse: [id number] BRODY MCNAIR 3 If is still suspected, please repeat test after 48 to 72 hours. This test detects intact HCG only and is indicated for the early detection of . 4 SEE RESULT BELOW Name: LORI SANTANA : [address]: Gino Liao MD Acct: [id number] Unit: [id number] AGE: 30 Location: OR Re10/26/16 SEX: F Status: DEP [facility] SPEC: [id number] DOMINIK: 10/26/16- SUBM DR: Gino Liao MD REQ: [id number] RECD: 10/27/16-1007 STATUS: SOUT _ ORDERED: Decal, [...] x 2.5 by up to 0.7 cm. Seed Core Operator sections, one cassette following decalcification. Signed (signature on file) Ema Alas MD 1058 END OF REPORT * ML=Testing performed at Main Lab DEPARTMENT OF PATHOLOGY, [address] [place] [address] Oswaldo Cobos M.D. Director [facility] # [id number] 5 RIGHT FOOT 6 SEE RESULT BELOW Name: LORI SANTANA : [address]: Gino Liao MD Acct: [id number] Unit: [id number] AGE: 30 Location: OR Re10/26/16 SEX: F Status: DEP SDC SPEC: [id number] DOMINIK: 10/26/16-1537 [facility] DR: Gino Liao MD REQ: [id number] RECD: 10/27/16-1008 STATUS: BALJEET ADKINS DR: Dano Kaminski MD _ SOURCE: WOUND SPDESC: ORDERED: Anaerobic Cult Procedure Result Reported Site Anaerobic Culture Final 10/31/16- 0802 ML Anaerobe Culture No Anaerobes Day 4 * ML - [facility]) . END OF REPORT * ML=Testing performed at Main Lab DEPARTMENT OF PATHOLOGY, [address] [place] [address] Oswaldo Cobos M.D. Director [facility] # [id number] 7 SEE RESULT BELOW Name: LORI SANTANA : [address]: Gino Liao MD Acct: [id number] Unit: [id number] AGE: 30 Location: OR Re10/26/16 SEX: F Status: BREE GALINDO SPEC: [id number] DOMINKI: 10/26/16-1537 [facility] DR: Gino Liao MD REQ: [id number] RECD: 10/27/16 STATUS: COMP CRISTI DR: Dano Kaminski MD _ SOURCE: FOOT,RIGHT SPDESC: ORDERED: Culture Stain COMMENTS: RIGHT FOOT Procedure Result Reported Site Wound/Misc Gram Stain Final 10/27/16- 1058 ML No Neutrophils Observed No Organisms Seen Wound/Misc Culture Final 10/29/16- 1043 ML Organism 1 NORMAL YOLY Quantity 1+ * ML - MAIN LAB ([facility]) . END OF REPORT * ML=Testing performed at Main Lab DEPARTMENT OF PATHOLOGY, [address] [place] [address] Oswaldo Cobos M.D. Director [facility] # [id number] 8 Surgery Nurse: PAGE Boo 9 If is still suspected, please repeat test after 48 to 72 hours. This test detects intact HCG only and is indicated for the early detection of . Procedures Date CPT Code Description Status 08/17/2017 18319 Rad Exam; Hand Comp Completed 08/04/2017 88122 Polysomnography Sleep Staging 4+ Parameters Completed 07/20/2017 80351 Short Arm Cast Application Completed 07/13/2017 36154 Short Arm Cast Application Completed 07/05/2017 36217 Arthrodesis CMC JT Thumb W/ Autograft Completed 07/05/2017 04305 Arthrodesis CMC JT Thumb W/ Autograft Completed 05/18/2017 53798 Rad Exam; Hand Comp Completed 05/18/2017 62715 Inject/Drain Joint/Bursa Small Completed 12/09/2016 71273 Rad Exam; Foot Comp Completed 11/17/2016 64992 application of short leg splint Completed 11/16/2016 82850 Short Leg Cast Completed 11/04/2016 02257 Short Leg Cast Completed 10/26/2016 23102 Transfer Tendon Ant/Post Tibial Deep Completed 10/26/2016 63013 Transfer Tendon Ant/Post Tibial Deep Completed 10/26/2016 75568 Removal Implant Deep Wire,Screw Nail,Kong Or Plate Completed 10/06/2016 11781 Short Leg Cast Completed 09/25/2016 42889 Short Leg Cast Completed 09/21/2016 63130 Osteotomy Calcaneus Dwyers Or Chambers Type Procedure Completed 09/21/2016 23531 Osteotomy Calcaneus Dwyers Or Chambers Type Procedure Completed Encounters Type Date Location Provider CPT E/M Dx Office Visit 08/26/2017 Pulmonology And Sleep Madhuri Couch, 43923 G47.33 11:00a [facility] DNP, RN, CONDUCTOR/BRAKEMAN-BC R53.83 E66.01 Z68.43 Office Visit 07/13/2017 8:00a Pul[facility] [place] [address] G47.9 [facility] G47.50 G25.81 E66.01 Z68.43 R35.1 R40.0 R12 Office Visit 06/15/2017 8:15a [facility] [address] M18.0 Juanita [facility] Office Visit 05/19/2017 3:15p [facility] Of Gino Liao 11893 M65.871 Juanita Mireles Lamar Marianela Office Visit 05/18/2017 9:00a [facility] [address] M18.11 Juanita Mireles [facility]79.641 Office Visit 04/28/2017 3:45p [facility] Of Gino Liao 81297 M76.821 [facility] 04/07/2017 2:30p [facility] Of Gino Keshawn, 19320 M76.821 [facility] M76.822 Office Visit 03/10/2017 2:15p [facility] Gino Liao 11376 M76.821 [facility] Office Visit 09/02/2016 3:15p [facility] Of Gino Liao 89401 M76.821 [facility] Office Visit 08/26/2016 2:45p [facility] Of Gino Liao 29030 M76.821 [facility] M72.2 Office Visit 08/21/2016 2:30p [facility] [address] Q66.89 [facility]72.2 Office Visit 10/14/2012 1:15p [facility] Of Gino Liao, 85131 755.67 CAshlee Bear Plan of Care Future Appointment(s):09/08/2017 11:45 am - Gino Liao M.D. at [facility] At Fvugtkag13/08/2018 8:00 am - Madhuri Couch DNP, RN, JOHN- at [facility]/05/2017 8:15 am - Gino Narayan MD at [facility] At Xwrdgubq17/18/2018 - Madhuri Couch DNP , RN, CONDUCTOR/BRAKEMAN-BCG47.33 Obstructive sleep apnea (adult) (pediatric)Follow up:6 weeksRecommendations:Sleep apnea to start PAP at 5-15 cm Review of sleep study in detail. Review of risks of untreated sleep apnea including cardiovascular events: rhythm irregularities, heart attack, stroke; gastro esophageal reflux disease (GERD); diabetes; anxiety, depression; high blood pressure; accidents (machinery and automobile) Recommendation for PAP other treatment modalities NON-PAP including oral appliance/mandibular advancement device, positional strategies , and surgery discussed. Referral for PAP device to be sent to [facility] phone: [phone] Equipment appointment will take about 45 minutes, the DME provider will call you within 5 days to set you up for the device. If you do not hear from them call the Sleep Center. The mask will have a 30-day guarantee , if you have mask problems call the DME provider to have a fitting for a different mask. If you have problems with the air pressure call the sleep center and speak to a nurse. If you have any sleepiness while driving you MUST avoid operating a vehicle or machinery. If you have any further questions , please call the [facility] Disorder Center at [phone].R53.83 Other llilwkcJ76.01 Morbid (severe) obesity due to excess msccpkszU82.43 Body mass index (BMI) 50-59.9 , adult
[2017-09-26 20:41] VITALS: BP 119/103
[2017-09-26] MEDS ORDERED: Ondansetron ODT TAB* 4 MG PO ONE (21:24)
[2017-09-26] MEDS ORDERED: Ketorolac INJ* 60 MG/2 ML VIAL IM ONE (21:24)
--- NOTE | 2017-09-26 21:49 | UC ---
Complaint Female HPI - HPI Summary HPI Summary: 31 y/o female presents to the urgent care c/o LF flank pain radiating to the lower abdomen and associated w/ urinary frequency and burning on urination. Pt thinks she has a kidney stone. Pain started very mild, but it is increasing. Now it is 10/10 sharp and intermittent, associated w/ 2 episodes nausea, vomiting, and chills tonight. She has not taking anything to alleviate symptoms. Pt states she had fever in the afternoon. Pt deneis SOB, chest pain, diarrhea, Hx of STD's, vaginal d/c. - History Of Current Complaint Chief Complaint: UCLowerExtremity Stated Complaint: LOWER BACK PAIN, FEVER, CHILLS Time Seen by Provider: 09/26/17 21:15 Hx Obtained From: Patient Hx Last Menstrual Period: 09/23/17 ?: No Onset/Duration: Gradual Onset, Lasting Days - 1 day, Still Present, Worse Since - today Timing: Constant, Intermittent, Lasting Minutes Severity Initially: Mild Severity Currently: Severe Pain Intensity: 10 Pain Scale Used: 0-10 Numeric Character: Sharp, Burning, Colicy Aggravating Factor(s): Movement, Urination Alleviating Factor(s): Nothing Associated Signs And Symptoms: Positive: Fever, Back Pain - left flank pain, Nausea, Vomiting(# Of Episodes =). Negative: Vaginal Bleeding/Discharge, Vaginal Discharge, Genital Swelling, Genital Blisters - Risk Factors Ectopic Risk Factor: Negative Ovarian Torsion Risk Factor: Negative - Allergies/Home Medications Allergies/Adverse Reactions: Allergies Allergy/AdvReac Type Severity Reaction Status Date / Time morphine Allergy Severe Hives Verified 09/26/17 20:44 amoxicillin Allergy Intermediate Hives Verified 09/26/17 20:44 lactose Allergy GI Upset Verified 09/26/17 20:44 fiberglass cast material Allergy Hives Uncoded 09/26/17 20:44 PMH/Surg Hx/FS Hx/Imm Hx Previously Healthy: Yes Other Endocrine History: PCOS, B/L lower leg edema Respiratory History: Asthma - Surgical History Surgical History: Yes Surgery Procedure, Year, and Place: APPENDECTOMY, OVARIAN CYST ,PILONIDAL CYSTECTOMY. right foot surgery 09/21/16. RIGHT FOOT/ANKLE SURGERY 10/26/16. RIGHT THUMB - Family History Known Family History: Positive: Cardiac Disease, Hypertension Negative: Diabetes - Social History Occupation: Employed Full-time Lives: With Family Alcohol Use: None Substance Use Type: None Smoking Status (MU): Former Smoker Type: Cigarettes Amount Used/How Often: 1 ppd for 4 years Have You Smoked in the Last Year: No When Did the Patient Quit Smoking/Using Tobacco: 7 years ago - Immunization History Most Recent Influenza Vaccination: not yet Most Recent Tetanus Shot: WITHIN 10 YEARS Review of Systems Constitutional: Fever, Chills Skin: Negative Eyes: Negative ENT: Negative Respiratory: Negative Cardiovascular: Negative Gastrointestinal: Vomiting - 2 episodes here at the clinic, Nausea, Other - LEft glank pain radiating to the LLQ Genitourinary: Dysuria, Frequency, Urgency Motor: Negative Neurovascular: Negative Musculoskeletal: Negative Neurological: Headache Psychological: Negative Is Patient Immunocompromised?: No All Other Systems Reviewed And Are Negative: Yes Physical Exam Triage Information Reviewed: Yes Vital Signs: Initial Vital Signs Temp 98.7 F 09/26/17 20:35 Pulse 62 09/26/17 20:35 Resp 18 09/26/17 20:35 BP 119/103 09/26/17 20:35 Pulse Ox 98 09/26/17 20:35 - Additional Comments VITAL SIGNS: Reviewed. GENERAL: Patient is a well developed and nourished female who vomiting and w/ acute pain distress. HEAD AND FACE: No signs of trauma. No ecchymosis, hematomas or skull depressions. No sinus tenderness. EYES: PERRLA, EOMI x 2, No injected conjunctiva, clear watery eyes, no nystagmus. No photophobia. EARS: Hearing grossly intact. Ear canals and tympanic membranes are within normal limits. MOUTH: pharynx with no erythema, no exudates,no palatal petechiae. no B/L tonsillar enlargement Uvula in midline. NECK: Supple, trachea is midline, no lymphadenopathy, no JVD, no carotid bruit, no c-spine tenderness, neck with full ROM. CHEST: Symmetric, no tenderness at palpation LUNGS: Clear to auscultation bilaterally. No wheezing or crackles. CVS: Regular rate and rhythm, S1 and S2 present, no murmurs or gallops appreciated. ABDOMEN: Soft, non-tender. No signs of distention. No rebound no guarding, and no masses palpated. Bowel sounds are normal. BACK:no scoliosis or lesions, non tender to palpation, Positive severe left CVA tenderness on percussion, No RT CVA tenderness EXTREMITIES: FROM in all major joints, no edema, no cyanosis or clubbing. NEURO: Alert and oriented x 3. No acute neurological deficits. Speech is normal and follows commands. SKIN: Dry and warm Complaint Female Dx - Course Course Of Treatment: 31 y/o female presents to the urgent care c/o LF flank pain radiating to the lower abdomen and associated w/ urinary frequency and burning on urination. Pt thinks she has a kidney stone. Pain started very mild, but it is increasing. Now it is 10/10 sharp and intermittent, associated w/ 2 episodes nausea,vomiting, and chills tonight. She has not taking anything to alleviate symptoms. Pt states she had fever in the afternoon. Pt deneis SOB, chest pain, diarrhea, Hx of STD's, vaginal d/c. Hx obtained. Pt is w/ acute pain distress, vomiting and severe LF CVA tenderness on percussion on examiantion. UA ordered: 2+blood, trace Leukoesteraces. Pt given Zofran PO and Toradol IM inj to alleviate symptoms. Pt tolerated well medications given by nurse. Pt's symptoms presented to Dr Jenkins. She recommended Abdominal and pelvic CT to r/o kidney stones. CT ordered:Impression: No evidence for acute finding or cause for PT's abdominal pain as per radiologist. Pt will be TX as Pyelonephritis. Urine culture sent to lab. Pt Rx Ciprofloxacin PO, Zofran PO, Ibuprofen and Pyridium PO to alleviate symptoms. Pt educated on Medications side effects. Pt strongly advised to go to the ER immeditely if symptoms worsen despite taking ABX. Advised f/u w/ PCP in 2-3 days for check-up. Pt understood and agreed w/ plan of care. Pain decreased and vomiting resolved at D/C. Pt left the clinic hemodynamically stable, A&OX3 and stating feeling better. - Differential Dx/Diagnosis Differential Diagnosis/HQI/PQRI: Cervicitis, Pelvic Inflammatory Disease, Renal Colic, Sexually Transmitted Disease, Ureteral Stone, Urinary Tract Infection Provider Diagnoses: 1- Acute Pyelonephritis. 2-Nausea and vomiting. 3- Dysuria. 4-Uncontrolled HTN - Physician Notifications Discussed Patient Care With: Amy Jenkins - DR Jenkins agreed w/ Pt's plan of care. Discharge - Discharge Plan Condition: Stable Disposition: HOME Prescriptions: Ciprofloxacin TAB* [Cipro 500 MG TAB*] 500 mg PO BID #19 tab Ibuprofen TAB* [Motrin TAB* 800 MG] 800 mg PO Q6H PRN #30 tab PRN Reason: Pain Ondansetron ODT TAB* [Zofran 4 MG Odt TAB*] 4 mg PO Q6H PRN #12 tab.odt PRN Reason: Vomiting Phenazopyridine TAB* [Pyridium 100 mg TAB*] 100 mg PO TID #6 tab Patient Education Materials: Kidney Infection (ED), Low-Sodium Diet (ED) Referrals: Dano Kaminski MD [Primary Care Provider] - 2 Days Additional Instructions: 1- Please take Ciprofloxacin 500mg PO x 7 days. Pyridium 100 mg PO TID x 2 days to alleviate urinary symptoms. Increase increase fluid intake. drink cranberry juice. 2-Take Ibuprofen PO q6-8hrs prn after meals to alleviate pain and fever. 3-Take Zofran PO as directed to alleviate nausea and vomiting only as needed. Do not take it at the same time w/ the Ciprofloxacin. 4-Urine sent for culture if any abnormality, you will be notified for further treatment. 5-If symptoms do not improve please return to the urgent care or f/u with PCP.2 -3 days for further management 6-If severe fever and flank pain develops despite medications please go immediately to the ER for further treatment 7-Your BP is elevated today. please decrease salt in your diet, monitor BP and if it continues to be elevated please f/u with your PCP for further management
--- NOTE | 2017-09-26 22:18 | RAD ---
INDICATION: Left flank abdominal pain. COMPARISON: There are no prior studies available for comparison. TECHNIQUE: A CT scan of the abdomen and pelvis was performed without intravenous or oral contrast. Contiguous axial sections were obtained from the lung bases through the symphysis pubis. Images were reconstructed in the coronal and sagittal planes. FINDINGS: The lung bases are clear. No pleural effusion is present. The liver is moderately enlarged and decreased in attenuation consistent with fatty infiltration. No significant focal abnormality is seen on this noncontrast study. No calcified gallstones are noted. The spleen is within normal limits in size. The pancreas appears to be within normal limits. The adrenal glands and kidneys are normal in size. No renal calculi or hydronephrosis is seen. No ureteral or bladder calculi are seen. The aorta is normal in caliber without significant calcific plaque. No significant enlarged retroperitoneal lymph nodes are seen. The stomach, small and large bowel appear nondistended. There is a calcific density in the proximal small bowel likely representing a pill. The patient appears to be status post appendectomy. There are scattered diverticuli within the colon. There is no evidence for diverticulitis or colitis. The uterus is anteverted and mildly enlarged. No free intraperitoneal air or fluid is seen No significant focal osseous abnormality is seen. IMPRESSION: 1. NO EVIDENCE FOR ACUTE FINDING OR CAUSE FOR THE PATIENT'S ABDOMINAL PAIN IS SEEN. 2. HEPATOMEGALY AND HEPATIC STEATOSIS.
[2017-09-26] MEDS ORDERED: Ciprofloxacin TAB* 500 MG PO ONE (22:37)
== END 2017-09-26 22:58 | disposition home or self-care (01) ==
LOC: UCCORT 16:45
DX: N10 Acute pyelonephritis (principal); R11.2 Nausea with vomiting, unspecified; R30.0 Dysuria; I10 Essential (primary) hypertension; Z87.891 Personal history of nicotine dependence
CPT/HCPCS: 74176; 81003; 87077; 87086; 87186; 96372; 99212; A9270-GY; G0463; J1885

== ENCOUNTER 2017-10-08 11:33 | Emergency (ER) | payer OTHER ==
--- OUTSIDE RECORDS SUMMARY | 2017-10-08 12:07 | XMS REPORT ---
:1985 External Reference #:[id number] Author Organization [facility] Address [address] [address] Phone [phone] Care Team Providers Name Role Phone Dano Kaminski MD Primary Care Physician Unavailable Payers Type Date Identification Numbers Payment Provider Subscriber Commercial Effective: Policy Number: Xander Santana 2012 [id number] Group Number: [id number] [address] PayID: [id number] [place] [address] Problems Date Description Provider Status Onset: 05/18/2017 Localized, primary osteoarthritis Gino Narayan MD Active of the hand Onset: 08/26/2017 Obstructive sleep apnea syndrome Madhuri Couch DNP, RN, Active [employer] Onset: 08/26/2017 Body mass index 40+ - severely Madhuri Couch DNP, RN, Active obese [employer] Family History Date Family Member(s) Problem(s) Comments General Heart Disease General Cancer Social History Type Date Description Comments Marital Status Lives With Family Occupation [employer] Medical leave 08/26/17 Occupation Currently Working Cigarette [...] Tablets 300mg TK 1 T PO Unknown D Montelukast Active Tablets 10mg TK 1 [...] Symbicort Active Aerosol 160-4.5mc 2 puffs Unknown g/Act bid Ketotifen Active Solution 0.025% Instill 1 Unknown Fumarate GTT In OU bid prn Xyzal Allergy Active Tablets 10mg 1 by mouth Unknown 24HR every day Iron Active daily Unknown Prednisone Active Tablets 20mg TK 2 TS PO Unknown D Cast 07/06 Hx Misc Right Gino Protector/Full-Ar upper gisselle Narayan Adult - extremity 08/26 Hydrocodone-Aceta 07/05 Hx Tablets 5-325mg 30tab 1 or 2 Gino min s tabs by Sylvain, - mouth 08/10 every - hours as [...] Hx Aerosol 180mcg/Ac Inhale 1 Unknown Flexhaler /0000 t puff PO Q - 12 H 08/20 Fluticasone Hx Suspension 50mcg/Act Use 1 Unknown Propionate /0000 [place] In - Each 08/20 Nostril qd Green Vibrance Hx 1 scoop Unknown /0000 into - liquid 04/13 Cetirizine HCL 00 Hx Tablets 10mg 1 by mouth Unknown [...] Sylvain Vital Signs Date Vital Result Comment 10/05/2017 Height 66 inches 5'6" Weight 352.00 lb Heart Rate 98 /min BP Systolic Sitting 130 mmHg BP Diastolic Sitting 72 mmHg Respiratory Rate 16 /min Pain Level 7 O2 % BldC Oximetry 99 % ra BMI (Body Mass Index) 56.8 kg/m2 09/08/2017 Height 66 inches 5'6" Weight 352.00 lb Heart Rate 78 /min BP Systolic Sitting 124 mmHg BP Diastolic Sitting 76 mmHg Respiratory Rate 16 /min Pain Level 3 worse at night, 7 BMI (Body Mass Index) 56.8 kg/m2 08/26/2017 Height 66 inches 5'6" Weight 352.00 [...] 70-100 1 finding Glucose Laboratory test 10/26/2016 Surgical Pathology SEE RESULT BELOW 2 finding Laboratory test 10/26/2016 (HCG) Negative Negative 3 finding Urine Laboratory test 10/26/2016 Point of Care 94 mg/dL 74-106 4 finding Glucose Laboratory test 10/26/2016 Anaerobic Culture SEE RESULT BELOW 5, 6 finding Wound Culture/Sensi 10/26/2016 Wound/Misc SEE RESULT BELOW 5, 7 Culture-Gram Stain Laboratory test 09/21/2016 Point of Care 109 mg/dL High 74-106 8 finding Glucose Laboratory test 09/21/2016 (HCG) Negative Negative 9 finding Urine 1 Mail Processing Machine Operator: [id number] 2 SEE RESULT BELOW Name: LORI SANTANA : [address]: Gino Liao MD Acct: [id number] Unit: [id number] AGE: 30 Location: OR Re10/26/16 SEX: F Status: DEP [facility] SPEC: [id number] DOMINIK: 10/26/16- [facility] DR: Gino Liao MD REQ: [id number] RECD: 10/27/16-1007 STATUS: SOUT _ ORDERED: Decal, [...] x 2.5 by up to 0.7 cm. Flow Worker sections, one cassette following decalcification. Signed (signature on file) Ema Alas MD [id number] END OF REPORT * ML=Testing performed at Main Lab DEPARTMENT OF PATHOLOGY, [address] [place] [address] Oswaldo Cobos M.D. Director [facility] # [id number] 3 If is still suspected, please repeat test after 48 to 72 hours. This test detects intact HCG only and is indicated for the early detection of . 4 Mail Processing Machine Operator: [id number] BRODY MCNAIR 5 RIGHT FOOT 6 SEE RESULT BELOW Name: LORI SANTANA : [address]: Gino Liao MD Acct: [id number] Unit: [id number] AGE: 30 Location: OR Re10/26/16 SEX: F Status: DEP SDC SPEC: [id number] DOMINIK: 10/26/16-[address]: Gino Liao MD REQ: [id number] RECD: 10/27/16-1009 STATUS: COMP [facility] [address]: Dano Kaminski MD _ SOURCE: WOUND SPDESC: ORDERED: Anaerobic Cult Procedure Result Reported Site Anaerobic Culture Final 10/31/16801 ML Anaerobe Culture No Anaerobes Day 4 * ML - [facility] ([facility]) . END OF REPORT * ML=Testing performed at Main Lab DEPARTMENT OF PATHOLOGY, [address] [place] [address] Oswaldo Cobos M.D. Director [facility] # [id number] 7 SEE RESULT BELOW Name: LORI SANTANA : [address]: Gino Liao MD Acct: [id number] Unit: [id number] AGE: 30 Location: OR Re10/26/16 SEX: F Status: DEP SDC SPEC: [id number] DOMINIK: 10/26/16-[address] [facility] [address]: Gino Liao MD REQ: [id number] RECD: 10/27/16 STATUS: BALJE[facility] DR: Dano [...] performed at Main Lab DEPARTMENT OF PATHOLOGY, [address] [place] [address] Oswaldo Cobos M.D. Director [facility] # [id number] 8 Mail Processing Machine Operator: [id number] 9 If is still suspected, please repeat test after 48 to 72 hours. This test detects intact HCG only and is indicated for the early detection of . Procedures Date CPT Code Description Status 09/02/2017 43437 Nerve Conduction 05-06 Studies Completed 08/17/2017 83780 Rad Exam; Hand Comp Completed 08/04/2017 10016 Polysomnography Sleep Staging 4+ Parameters Completed 07/20/2017 96852 Short Arm Cast Application Completed 07/13/2017 12679 Short Arm Cast Application Completed 07/05/2017 17122 Arthrodesis CMC JT Thumb W/ Autograft Completed 07/05/2017 57597 Arthrodesis CMC JT Thumb W/ Autograft Completed 05/18/2017 64762 Rad Exam; Hand Comp Completed 05/18/2017 68051 Inject/Drain Joint/Bursa Small Completed 12/09/2016 76713 Rad Exam; Foot Comp Completed 11/17/2016 96816 application of short leg splint Completed 11/16/2016 95149 Short Leg Cast Completed 11/04/2016 21952 Short Leg Cast Completed 10/26/2016 33790 Transfer Tendon Ant/Post Tibial Deep Completed 10/26/2016 92572 Transfer Tendon Ant/Post Tibial Deep Completed 10/26/2016 24249 Removal Implant Deep Wire,Screw Nail,Kong Or Plate Completed 10/06/2016 35022 Short Leg Cast Completed 09/25/2016 63972 Short Leg Cast Completed 09/21/2016 98822 Osteotomy Calcaneus Dwyers Or Chambers Type Procedure Completed 09/21/2016 54093 Osteotomy Calcaneus Dwyers Or Chambers Type Procedure Completed Encounters Type Date Location Provider CPT E/M Dx Office Visit 08/26/2017 [facility] Sleep Madhuri Couch, [address] G47.33 11:00a Services Of Juanita BURTON RN, [employer] R53.83 E66.01 Z68.43 Office Visit 07/13/2017 8:00a [facility] [address] G47.9 Services [facility] G47.50 G25.81 E66.01 Z68.43 R35.1 R40.0 R12 Office Visit 06/15/2017 8:15a [facility] [address] M18.0 [facility] Office Visit 05/19/2017 3:15p [facility] Gino Liao 63089 M65.871 [facility] Office Visit 05/18/2017 9:00a [facility] [address] M18.11 [facility] M79.641 Office Visit 04/28/2017 3:45p [facility] Gino Liao 92242 M76.821 [facility] Office Visit 04/07/2017 2:30p [facility] Gino Liao 05344 M76.821 [facility] M76.822 Office Visit 03/10/2017 2:15p [facility] G[facility] Liao 51200 M76.821 [facility] Office Visit 09/02/2016 3:15p [facility] Gino Liao 79569 M76.821 [facility] Office Visit 08/26/2016 2:45p [facility] G[facility] Liao 07609 M76.821 [facility] M72.2 Office Visit 08/21/2016 2:30p [facility] [address] Q66.89 [facility] M72.2 Office Visit 10/14/2012 1:15p [facility] Gino Liao, 95366 755.67 C.M.A. M.D. Plan of Care Future Appointment(s):10/12/2017 8:00 am - Gino Narayan MD at [facility] M[facility]51/08/2018 8:00 am - Madhuri Couch DNP, RN, [employer] at [facility]2017 - Gino Narayan MDM18.11 Unil primary osteoarth of first carpometacarp joint, r handNew Xrays: CT Extremity Upper Right WoFollow up:Follow up: after CT scan
[2017-10-08 12:54] VITALS: BP 149/82
--- NOTE | 2017-10-08 13:43 | UC ---
Shoulder Pain HPI - HPI Summary HPI Summary: Pt c/o sudden and gradually worsening pain and numbness to that began this morning that began at base of left occipital lobe. Pt states that pain worsened then began to radiate down left side of neck, upper shoulder, upper arm and anterior upper chest. Pt denies, CP, SOB, nausea, jaw pain or back pain. pt has history of shingles, denies rash - History of Current Complaint Chief Complaint: UCHeadache Stated Complaint: HEAD ACHE,EARS Time Seen by Provider: 10/08/17 13:03 Hx Obtained From: Patient Hx Last Menstrual Period: 09/14/17 ?: No Onset/Duration: Sudden Onset, Still Present Timing: Constant Severity Initially: Mild Severity Currently: Moderate Pain Intensity: 7 Character: Dull, Aching, Stiffness, Burning Aggravating Factor(s): Nothing Alleviating Factor(s): Nothing Associated Signs And Symptoms: Positive: Numbness/Tingling Related History: Similar Episode/Dx As - inknown, Dominant Hand Right - Risk Factors Non-Orthopedic Risk Factor: Negative DVT Risk Factors: Other: - obesity Septic Arthritis Risk Factor: Negative - Allergies/Home Medications Allergies/Adverse Reactions: Allergies Allergy/AdvReac Type Severity Reaction Status Date / Time morphine Allergy Severe Hives Verified 10/08/17 12:54 amoxicillin Allergy Intermediate Hives Verified 10/08/17 12:54 lactose Allergy GI Upset Verified 10/08/17 12:54 fiberglass cast material Allergy Hives Uncoded 09/26/17 20:44 PMH/Surg Hx/FS Hx/Imm Hx Previously Healthy: Yes Endocrine History: Diabetes - pcos Cardiovascular History: Other - peripheral edema, Other Cardiovascular History: has hx RBBB as per EKG - Surgical History Surgical History: Yes Surgery Procedure, Year, and Place: APPENDECTOMY, OVARIAN CYST ,PILONIDAL CYSTECTOMY. right foot surgery 09/21/16. RIGHT FOOT/ANKLE SURGERY 10/26/16. RIGHT THUMB - Family History Known Family History: Positive: Cardiac Disease, Hypertension Negative: Diabetes - Social History Occupation: Works From/At Home Lives: With Family Alcohol Use: None Substance Use Type: None Smoking Status (MU): Former Smoker Type: Cigarettes Amount Used/How Often: 1 ppd for 4 years Have You Smoked in the Last Year: No When Did the Patient Quit Smoking/Using Tobacco: 2007 - Immunization History Most Recent Influenza Vaccination: not yet Most Recent Tetanus Shot: WITHIN 10 YEARS Review of Systems Constitutional: Negative Skin: Negative Eyes: Negative ENT: Negative Respiratory: Negative Cardiovascular: Chest Pain Gastrointestinal: Negative Genitourinary: Negative Motor: Weakness Neurovascular: Negative Musculoskeletal: Myalgia Neurological: Numbness Psychological: Negative Is Patient Immunocompromised?: No All Other Systems Reviewed And Are Negative: Yes Physical Exam Triage Information Reviewed: Yes Appearance: Well-Appearing, Obese Vital Signs: Initial Vital Signs Temp 98.8 F 10/08/17 12:42 Pulse 96 10/08/17 12:42 Resp 18 10/08/17 12:42 BP 149/82 10/08/17 12:42 Pulse Ox 100 10/08/17 12:42 Vital Signs Reviewed: Yes Eye Exam: Normal Eyes: Positive: Other: - PERRLA, no unilateral ENT Exam: Normal Dental Exam: Normal Neck exam: Normal Neck: Positive: Supple Respiratory Exam: Normal Cardiovascular Exam: Normal Musculoskeletal Exam: Normal Musculoskeletal: Positive: Strength Intact, ROM Intact Neurological Exam: Normal Psychological Exam: Normal Skin Exam: Normal Shoulder Course/Dx - Course Course Of Treatment: I discussed with the pt the findings of her PE and instructed her to seek immediate care if symptoms worsen or do not improve. Pt verbalized understanding and agreed to plan of care. - Differential Dx/Diagnosis Provider Diagnoses: impinged nerve. neck and chest pain. possible early onset of shingles Discharge - Discharge Plan Condition: Stable Disposition: HOME Patient Education Materials: Neck Pain (ED) Referrals: Dano Kaminski MD [Primary Care Provider] - Additional Instructions: Please follow up with your PCP or return to clinic as needed. If symptoms do not improve or worsens please seek care immediately at the closest emergency room.
== END 2017-10-08 13:54 | disposition home or self-care (01) ==
LOC: UCCORT 11:33
DX: G58.9 Mononeuropathy, unspecified (principal); M54.2 Cervicalgia; R07.9 Chest pain, unspecified; Z91.048 Other nonmedicinal substance allergy status; Z87.891 Personal history of nicotine dependence; Z88.4 Allergy status to anesthetic agent; Z91.011 Allergy to milk products; Z88.0 Allergy status to penicillin; E11.9 Type 2 diabetes mellitus without complications
CPT/HCPCS: 99211; G0463

== ENCOUNTER 2017-10-18 20:02 | Emergency (ER) | payer OTHER ==
--- OUTSIDE RECORDS SUMMARY | 2017-10-18 20:13 | XMS REPORT ---
:1985 External Reference #:[id number] Author Organization [facility] Address [address] [address] Phone [phone] Care Team Providers Name Role Phone Dano Kaminski MD Primary Care Physician Unavailable Payers Type Date Identification Numbers Payment Provider Subscriber Commercial Effective: Policy Number: Xander Santana 2012 [id number] Group Number: [id number] [address] PayID: [id number] [place] [address] Problems Date Description Provider Status Onset: 05/18/2017 Localized, primary osteoarthritis Gino Narayan MD Active of the hand Onset: 08/26/2017 Obstructive sleep apnea syndrome Madhuri Couch DNP, RN, Active 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 1 ppd at most Daily ETOH Use Denies alcohol use Smoking Patient is a former smoker Recreational Drug Use Denies Drug Use Daily Caffeine Consumes on average 2 cups of regular coffee per day Exercise Type/Frequency Exercises sporadically Allergies, Adverse Reactions, Alerts Date Description Reaction Status Severity Comments 08/21/2016 Amoxicillin active 08/21/2016 Morphine active 08/21/2016 Sudafed active 11/16/2016 Cast Material active Hives and itching 04/28/2017 active 10/11/2017 Cipro active tendon pain and diarrhea Medications Medication Date Status Form Strength Qnty SIG Indications Ordering Provider Tramadol HCL 10/12 Active Tablets 50mg 30tab 1-2 s tablets by fern Narayan MD every 6 hours as needed pain Hydrochlorothiazi Active Capsules 12.5mg TK 1 C PO Unknown de D Ranitidine HCL Active Tablets 300mg TK 1 T PO Unknown D Montelukast Active Tablets 10mg TK 1 T PO Unknown Sodium 0000 qd Metformin HCL Active Tablets 500mg TK 1 T PO Unknown /0000 bid Pantoprazole Active Tablets DR 40mg 1 by mouth Unknown Sodium twice daily Ventolin HFA Active Aerosol 108(90Bas 2 puffs Unknown /0000 e) prn mcg/Act Symbicort Active Aerosol 160-4.5mc 2 puffs Unknown /0000 g/Act bid Ketotifen Active Solution 0.025% Instill 1 Unknown Fumarate GTT In OU bid prn Xyzal Allergy Active Tablets 10mg 1 by mouth Unknown 24HR /0000 every day Iron 00 Active daily Unknown /0000 Vitamin D3 Active Capsules 2000Unit 1 by mouth Unknown /0000 every day Potassium Active Tablets 99mg once a day Unknown /0000 Calcium/Magnesium Active Tablets Vit D3 3 by mouth Unknown /Zinc/Vitamin D3 /0000 a day Cast 07/06 Hx Misc Right Gino Protector/Full-Ar upper gisselle Narayan Adult - extremity 08/26 Hydrocodone-Aceta 07/05 Hx Tablets 5-325mg 30tab 1 or 2 Gino min s tabs by Lacey Narayan mouth 08/10 every 6- hours as needed for pain Kratom 12/09 Hx Powder 2 teaspoons Keshawn, - in liquid M.D. 08/26 daily. ( hold) Bariatric 11/05 Hx 1unit folding Gino [...] PO Q - 12 H 08/20 Fluticasone 00 Hx Suspension 50mcg/Act Use 1 Unknown Propionate /0000 [place] In - Each 08/20 Nostril Green Vibrance Hx 1 scoop Unknown /0000 into - liquid 04/13 Cetirizine HCL 00 Hx Tablets 10mg 1 by mouth Unknown /0000 every day - 06/14 Flovent Diskus Hx Aerosol 100mcg/Bl 1 Unknown /0000 ist inhalation - daily 02/08 Fluticasone Hx Suspension 50mcg/Act 2 sprays Unknown Propionate /0000 each - nostril 10/13 Tramadol HCL 00 Hx Tablets 50mg TK 1 To 2 Unknown /0000 TS PO Q 4 - To 6 H PRF 04/27 Pain. 6 Prednisone 00/00 Hx Tablets 20mg TK 2 TS PO Unknown /0000 D - 09/14 Cipro Hx Tablets 500mg 1 by mouth Unknown /0000 twice a - day for 10 Medications Administered in Office Medication Date Status Form Strength Qnty SIG Indications Ordering Provider Celestone 3 mg Administered Injection Pierre M and 3mg 018 MD Lucy Celestone 3 mg Administered Injection Gino and 3mg 017 MD Sylvain Vital Signs Date Vital Result Comment 10/14/2017 Height 66 inches 5'6" Weight 357.38 lb Heart Rate 76 /min BP Systolic Sitting 128 mmHg BP Diastolic Sitting 80 mmHg Respiratory Rate 16 /min O2 % BldC Oximetry 99 % BMI (Body Mass Index) 57.7 kg/m2 Neck Circumference in inches 18 10/12/2017 Height 66 inches 5'6" Weight 350.00 lb Heart Rate 120 /min BP Systolic Sitting 118 mmHg BP Diastolic Sitting 76 mmHg Respiratory Rate 30 /min Pain Level 6 BMI (Body Mass Index) 56.5 kg/m2 10/11/2017 Heart Rate 113 /min BP Systolic 104 mmHg BP Diastolic 86 mmHg Respiratory Rate 20 /min Pain Level 7 O2 % BldC Oximetry 97 % 10/06/2017 Height 66 inches 5'6" Weight 350.00 lb Heart Rate 96 /min BP Systolic Sitting 128 mmHg BP Diastolic Sitting 78 mmHg Respiratory Rate 18 /min Pain Level 2 BMI (Body Mass Index) 56.5 kg/m2 10/05/2017 Height 66 inches 5'6" Weight 352.00 [...] 5, 7 Culture-Gram Stain Laboratory test 09/21/2016 (HCG) Negative Negative 8 finding Urine Laboratory test 09/21/2016 Point of Care 109 mg/dL High 74-106 9 finding Glucose 1 Sheriff'S Sergeant: [id number] 2 SEE RESULT BELOW Name: LORI SANTANA : [address]: Gino Liao MD Acct: [id number] Unit: [id number] AGE: 30 Location: OR Re10/26/16 SEX: F Status: BREE GALINDO SPEC: [id number] DOMINIK: 10/26/16- [facility] DR: Gino Liao MD REQ: [id number] RECD: 10/27/16-1007 STATUS: SOUT _ ORDERED: Decal, [...] x 2.5 by up to 0.7 cm. Technician Assistant sections, one cassette following decalcification. Signed (signature on file) Ema Alas MD 1058 END OF REPORT * ML=Testing performed at Main Lab DEPARTMENT OF PATHOLOGY, [address] [place] [address] Oswaldo Cobos M.D. Director [facility] # [id number] 3 If is still suspected, please repeat test after 48 to 72 hours. This test detects intact HCG only and is indicated for the early detection of . 4 Sheriff'S Sergeant: [id number] BRODY MCNAIR 5 RIGHT FOOT 6 SEE RESULT BELOW Name: ILA SANTANAREJI Sargent : [address]: Gino Liao MD Acct: [id number] Unit: [id number] AGE: 30 Location: OR Re10/26/16 SEX: F Status: DEP SDC SPEC: [id number] DOMINIK: 10/26/16-1537 [facility] DR: Gino Liao MD REQ: [id number] RECD: 10/27/16-1008 STATUS: BALJEET ADKINS DR: Dano Kaminski MD _ SOURCE: WOUND SPDESC: ORDERED: Anaerobic Cult Procedure Result Reported Site Anaerobic Culture Final 10/31/16- 0802 ML Anaerobe Culture No Anaerobes Day 4 * ML - MAIN LAB ([facility]) . END OF REPORT * ML=Testing performed at Main Lab DEPARTMENT OF PATHOLOGY, [address] [place] [address] Oswaldo Cobos M.D. Director [facility] # [id number] 7 SEE RESULT BELOW Name: LORI SANTANA : [address]: Gino Liao MD Acct: [id number] Unit: [id number] AGE: 30 Location: OR Re10/26/16 SEX: F Status: BREE GALINDO SPEC: [id number] DOMINIK: 10/26/16-1537 [facility] DR: Gino Liao MD REQ: [id number] RECD: 10/27/16 STATUS: BALJEET ADKINS DR: Dano Kaminski MD _ SOURCE: FOOT,RIGHT SPDESC: ORDERED: Culture Stain COMMENTS: RIGHT FOOT Procedure Result Reported Site Wound/Misc Gram Stain Final 10/27/16- 1058 ML No Neutrophils Observed No Organisms Seen Wound/Misc Culture Final 10/29/16- 1043 ML Organism 1 NORMAL YOLY Quantity 1+ * ML - MAIN LAB ([facility]) . END OF REPORT * ML=Testing performed at Main Lab DEPARTMENT OF PATHOLOGY, [address] [place] [address] Oswaldo Cobos M.D. Director [facility] # [id number] 8 If is still suspected, please repeat test after 48 to 72 hours. This test detects intact HCG only and is indicated for the early detection of . 9 Sheriff'S Sergeant: [id number] Chao Boo Procedures Date CPT Code Description Status 10/11/2017 76593 Rad Shoulder Comp, Min. 2 Views Completed 10/11/2017 93695 Inject/Drain Joint/Bursa Major Completed 10/05/2017 28428 Rad Exam; Hand Comp Completed 09/02/2017 90009 Nerve Conduction 05-06 Studies Completed 08/17/2017 25962 Rad Exam; Hand Comp Completed 08/04/2017 18899 Polysomnography Sleep Staging 4+ Parameters Completed 07/20/2017 02208 Short Arm Cast Application Completed 07/13/2017 37367 Short Arm Cast Application Completed 07/05/2017 62280 Arthrodesis CMC JT Thumb W/ Autograft Completed 07/05/2017 24721 Arthrodesis CMC JT Thumb W/ Autograft Completed 05/18/2017 63135 Inject/Drain Joint/Bursa Small Completed 05/18/2017 10068 Rad Exam; Hand Comp Completed 12/09/2016 46397 Rad Exam; Foot Comp Completed 11/17/2016 23601 application of short leg splint Completed 11/16/2016 78389 Short Leg Cast Completed 11/04/2016 28150 Short Leg Cast Completed 10/26/2016 34746 Transfer Tendon Ant/Post Tibial Deep Completed 10/26/2016 26282 Transfer Tendon Ant/Post Tibial Deep Completed 10/26/2016 47374 Removal Implant Deep Wire,Screw Nail,Kong Or Plate Completed 10/06/2016 16668 Short Leg Cast Completed 09/25/2016 05974 Short Leg Cast Completed 09/21/2016 98216 Osteotomy Calcaneus Dwyers Or Chambers Type Procedure Completed 09/21/2016 87764 Osteotomy Calcaneus Dwyers Or Chambers Type Procedure Completed Encounters Type Date Location Provider CPT E/M Dx Office Visit 10/14/2017 [place] [address] R06.02 7:00a [facility] G47.33 K21.9 E66.01 Office Visit 10/06/2017 10:00a [facility] Gino Liao 36975 M76.821 [facility] 08/26/2017 11:00a Pulmonology And Sleep Madhuri Couch 73991 G47.33 [facility] BURTON, RN, LAND DEGRADATION ANALYST-BC R53.83 E66.01 Z68.43 Office Visit 07/13/2017 8:00a Pul[place] [address] G47.9 Services Of [facility] G47.50 G25.81 E66.01 Z68.43 R35.1 R40.0 R12 Office Visit 06/15/2017 8:15a [place] [address] M18.0 [facility] [place] Office Visit 05/19/2017 3:15p [facility] Services Of Gino Liao 60350 M65.871 [facility] Office Visit 05/18/2017 9:00a [facility] [address] M18.11 [facility] M79.641 Office Visit 04/28/2017 3:45p [facility] Of Gino Liao 85196 M76.821 [facility] Office Visit 04/07/2017 2:30p [facility] Of Gino Liao 69264 M76.821 [facility] M76.822 Office Visit 03/10/2017 2:15p [facility] Of Gino Liao 93114 M76.821 [facility] Office Visit 09/02/2016 3:15p [facility] Of Gino Liao 57854 M76.821 [facility] Office Visit 08/26/2016 2:45p [facility] Of Gino Liao 27600 M76.821 [facility] M72.2 Office Visit 08/21/2016 2:30p [place] [address] Q66.89 [facility] Office Visit 10/14/2012 1:15p [facility] Of Gino Liao 99302 755.67 C.MDamaris Bear Plan of Care Future Appointment(s):11/08/2017 8:00 am - Cathy Benjamin MD at [facility]ology [facility]11/02/2017 2:00 pm - Ica ECHO Schedule at [facility]11/09/2017 8:45 am - Gino Narayan MD at [facility] Dj[facility]qu34/09/2018 7:30 am - Gino Narayan MD at [facility]opedic Services Of C.M.ADiandra12/08/2017 9:15 am - Gino Liao M.D. at [facility] X[facility]91/08/2018 - Cathy Benjamin, MDR06.02 Shortness of breathNew Orders:PFTW/Spirometry Vol Pre/Post Bronchdilat Dlco Complete6 Minute WalkEchocardiogramFollow up:1 yuyxuU33.33 Obstructive sleep apnea (adult) (pediatric)K21.9 Gastro-esophageal reflux disease without lyajkwwlvpuL35.01 Morbid (severe) obesity due to excess calories
--- OUTSIDE RECORDS SUMMARY | 2017-10-18 20:14 | XMS REPORT ---
:1985 External Reference #:[id number] Author Organization [facility] Address [address] [address] Phone [phone] Care Team Providers Name Role Phone Dano Kaminski MD Primary Care Physician Unavailable Payers Type Date Identification Numbers Payment Provider Subscriber Commercial Effective: Policy Number: Xander Santana 2012 [id number] Group Number: [id number] [address] PayID: [id number] [place] [address] Problems Date Description Provider Status Onset: 05/18/2017 Localized, primary osteoarthritis Gino Narayan MD Active of the hand Onset: 08/26/2017 Obstructive sleep apnea syndrome Madhuri Couch DNP, RN, Active 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 Onset: 08/26/2017 Body mass index 40+ - severely Madhuri Couch DNP, RN, Active obese 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 Family History Date Family Member(s) Problem(s) Comments General Heart Disease General Cancer Social History Type Date Description Comments Marital Status Lives With Family Occupation [employer] leave 08/26/17 Occupation Currently Working [...] DR 40mg 1 by mouth Unknown Sodium 0000 twice daily Fluticasone Active Suspension 50mcg/Act 2 sprays Unknown Propionate each nostril daily Ventolin HFA Active Aerosol 108(90Bas 2 puffs Unknown 0000 e) prn mcg/Act Symbicort Active Aerosol 160-4.5mc 2 puffs Unknown 0000 g/Act bid Ketotifen Active Solution 0.025% Instill 1 Unknown Fumarate GTT In OU bid prn Xyzal Allergy Active Tablets 10mg 1 by mouth Unknown 24HR /0000 every day Iron Active daily Unknown Cast [...] by mouth Keshawn, - every 4-6 M.D. 03/21 hours needed Tramadol HCL 09/28 Hx Tablets 50mg 60tab 1-2 s tablets Keshawn, - every 6 M.D. 10/07 hours as needed Cast And Bandage 09/28 Hx Misc 1unit cast cover Gino Cover/Lower Leg s right Keshawn, - lower M.D. 11/03 extremity Oxycodone HCL 09/21 Hx Tablets 5mg 60tab 1-2 tabs s by mouth Keshawn, - every 4-6 M.D. 09/15 hours as needed Clindamycin HCL Hx Capsules 300mg TK 1 C PO Unknown /0000 Q 6 H - 08/20 Pulmicort Hx Aerosol 180mcg/Ac Inhale 1 Unknown Flexhaler /0000 t puff PO Q - 12 H 08/20 Fluticasone Hx Suspension 50mcg/Act Use 1 Unknown Propionate /0000 [place] In - Each 08/20 Nostril qd Green [...] 6 H PRF 04/27 Pain. 6 Prednisone Hx Tablets 20mg TK 2 TS PO Unknown /0000 D - 09/14 Cipro Hx Tablets 500mg 1 by mouth Unknown /0000 twice a - day for 10 Medications Administered in Office Medication Date Status Form Strength Qnty SIG Indications Ordering Provider Celestone 3 mg Administered Injection Pierre Sargent and 3mg 018 MD uLcy Celestone 3 mg Administered Injection Gino and 3mg 017 MD Sylvain Vital Signs Date Vital Result Comment 10/12/2017 Height 66 inches 5'6" Weight 350.00 [...] (HCG) Negative Negative 9 finding Urine 1 Target Network Analyst: [id number] 2 SEE RESULT BELOW Name: LORI SANTANA : [address]: Gino Liao MD Acct: [id number] Unit: [id number] AGE: 30 Location: OR Re10/26/16 SEX: F Status: [facility] SPEC: [id number] DOMINIK: 10/26/16- SUBM DR: Gino Liao MD REQ: [id number] RECD: 10/27/16-1007 STATUS: SOUT _ ORDERED: Decal, [...] x 2.5 by up to 0.7 cm. Fisheries Officer sections, one cassette following decalcification. Signed (signature on file) Ema Alas MD 1058 END OF REPORT * ML=Testing performed at Main Lab DEPARTMENT OF PATHOLOGY, [address] [place] [address] Oswaldo Cobos M.D. Director [facility] # [id number] 3 If is still suspected, please repeat test after 48 to 72 hours. This test detects intact HCG only and is indicated for the early detection of . 4 Target Network Analyst: [id number] BRODY MCNAIR 5 RIGHT FOOT 6 SEE RESULT BELOW Name: LORI SANTANA : [address]: Gino Liao MD Acct: [id number] Unit: [id number] AGE: 30 Location: OR Re10/26/16 SEX: F Status: DEP SDC SPEC: [id number] DOMINIK: 10/26/16-[address]: Gino Liao MD REQ: [id number] RECD: 10/27/16 STATUS: BALJEET ADKINS DR: Dano Kaminski MD _ SOURCE: WOUND SPDESC: ORDERED: Anaerobic Cult Procedure Result Reported Site Anaerobic Culture Final 10/31/16- 08 ML Anaerobe Culture No Anaerobes Day 4 * ML - MAIN LAB ([facility]) . END OF REPORT * ML=Testing performed at Main Lab DEPARTMENT OF PATHOLOGY, [address] [place] [address] Oswaldo Cobos M.D. Director [facility] # [id number] 7 SEE RESULT BELOW Name: LORI SANTANA : [address]: Gino Liao MD Acct: [id number] Unit: [id number] AGE: 30 Location: OR Re10/26/16 SEX: F Status: DEP SDC SPEC: [id number] DOMINIK: 10/26/16-1537 [facility] DR: Gino Liao MD REQ: [id number] RECD: 10/27/16-100 STATUS: BALJEET ADKINS DR: Dano Kaminski MD [...] performed at Main Lab DEPARTMENT OF PATHOLOGY, [address] [place] [address] Oswaldo Cobos M.D. Director [facility] # [id number] 8 Target Network Analyst: [id number] Chao Boo 9 If is still suspected, please repeat test after 48 to 72 hours. This test detects intact HCG only and is indicated for the early detection of . Procedures Date CPT Code Description Status 10/11/2017 64574 Inject/Drain Joint/Bursa Major Completed 10/05/2017 97348 Rad Exam; Hand Comp Completed 09/02/2017 08530 Nerve Conduction 05-06 Studies Completed 08/17/2017 96789 Rad Exam; Hand Comp Completed 08/04/2017 43057 Polysomnography Sleep Staging 4+ Parameters Completed 07/20/2017 40543 Short Arm Cast Application Completed 07/13/2017 11758 Short Arm Cast Application Completed 07/05/2017 04677 Arthrodesis CMC JT Thumb W/ Autograft Completed 07/05/2017 41627 Arthrodesis CMC JT Thumb W/ Autograft Completed 05/18/2017 20361 Rad Exam; Hand Comp Completed 05/18/2017 00740 Inject/Drain Joint/Bursa Small Completed 12/09/2016 71718 Rad Exam; Foot Comp Completed 11/17/2016 81620 application of short leg splint Completed 11/16/2016 94585 Short Leg Cast Completed 11/04/2016 71573 Short Leg Cast Completed 10/26/2016 58486 Transfer Tendon Ant/Post Tibial Deep Completed 10/26/2016 37852 Transfer Tendon Ant/Post Tibial Deep Completed 10/26/2016 13718 Removal Implant Deep Wire,Screw Nail,Kong Or Plate Completed 10/06/2016 35909 Short Leg Cast Completed 09/25/2016 89740 Short Leg Cast Completed 09/21/2016 07901 Osteotomy Calcaneus Lizets Or Chambers Type Procedure Completed 09/21/2016 13709 Osteotomy Calcaneus Dwbrittanys Or Chambers Type Procedure Completed Encounters Type Date Location Provider CPT E/M Dx Office Visit 08/26/2017 Pulmonology And Sleep Madhuri Couch 66916 G47.33 11:00a [facility] BURTON, RN, 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 R53.83 E66.01 Z68.43 Office Visit 07/13/2017 8:00a Pul[place]ology [place] [address] G47.9 [facility] G47.50 G25.81 E66.01 Z68.43 R35.1 R40.0 R12 Office Visit 06/15/2017 8:15a [facility] [address] M18.0 [facility] Office Visit 05/19/2017 3:15p [facility] Of Gino Liao 74251 M65.871 [facility] 05/18/2017 9:00a [facility] [address] M18.11 [facility] M79.641 Office Visit 04/28/2017 3:45p [facility] Of Gino Liao 22142 M76.821 [facility] 04/07/2017 2:30p [facility] Of Gino Liao 27472 M76.821 [facility] M76.822 Office Visit 03/10/2017 2:15p [facility] Gino Liao 01615 M76.821 [facility] 09/02/2016 3:15p [facility] Gino Liao, 02309 M76.821 [facility] Visit 08/26/2016 2:45p [facility] Of Gino Liao, 35833 M76.821 [facility] M72.2 Office Visit 08/21/2016 2:30p [place] [address] Q66.89 [facility] Office Visit 10/14/2012 1:15p [facility] Of Gino Liao, 94550 755.67 CAshlee Bear Plan of Care Future Appointment(s):10/14/2017 7:00 am - Cathy Benjamin MD at [facility]12/08/2017 9:15 am - Gino Liao M.D. at [facility] Qcgzclsl15/06/2018 - Gino Narayan, MDM18.11 Unil primary osteoarth of first carpometacarp joint, r handFollow up:Follow up: 10-14 days postop
--- OUTSIDE RECORDS SUMMARY | 2017-10-18 20:14 | XMS REPORT ---
:1985 External Reference #:[id number] Author Organization [facility] Address [address] [address] Phone [phone] Care Team Providers Name Role Phone Dano Kaminski MD Primary Care Physician Unavailable Payers Type Date Identification Numbers Payment Provider Subscriber Commercial Effective: Policy Number: Xander Santana 2012 [id number] Group Number: [id number] [address] PayID: [id number] [place] [address] Problems Date Description Provider Status Onset: 05/18/2017 Localized, primary osteoarthritis Gino Narayan MD Active of the hand Onset: 08/26/2017 Obstructive sleep apnea syndrome Madhuri Couch DNP, RN, Active [employer] Onset: 08/26/2017 Body mass index 40+ - severely Madhuri Couch DNP, RN, Active obese [employer]WORK[employer] Family History Date Family Member(s) Problem(s) Comments General Heart Disease General Cancer Social History Type Date Description Comments Marital Status Lives With Family Occupation [employer] Medical leave 08/26/17 Occupation Currently Working [...] Suspension 50mcg/Act Use 1 Unknown Propionate /0000 [place] In - Each 08/20 Nostril qd Green [...] 3 mg Administered Injection Gino and 3mg Imelda Narayan MD Vital Signs Date Vital Result Comment 10/11/2017 Heart Rate 113 /min BP Systolic [...] (HCG) Negative Negative 9 finding Urine 1 Healthcare Administration Internship: [id number] 2 SEE RESULT BELOW Name: LORI SANTANA : [address]: Gino Liao MD Acct: [id number] Unit: [id number] AGE: 30 Location: [place] Re10/26/16 SEX: F Status: DEP SD SPEC: [id number] DOMINIK: 10/26/16- [facility] DR: Gino Liao MD REQ: [id number] RECD: 10/27/16-1007 STATUS: SOUT _ ORDERED: Decal, [...] x 2.5 by up to 0.7 cm. Pet Ambassador sections, one cassette following decalcification. Signed (signature on file) Ema Alas MD [id number] END OF REPORT * ML=Testing performed at Main Lab DEPARTMENT OF PATHOLOGY, [address] [place] [address] Oswaldo Cobos M.D. Director [facility] # [id number] 3 If is still suspected, please repeat test after 48 to 72 hours. This test detects intact HCG only and is indicated for the early detection of . 4 Healthcare Administration Internship: [id number] BRODY MCNAIR 5 RIGHT FOOT 6 SEE RESULT BELOW Name: LORI SANTANA : [address]: Gino Liao MD Acct: [id number] Unit: [id number] AGE: 30 Location: [place] Re10/26/16 SEX: F Status: DEP [facility] SPEC: [id number] DOMINIK: 10/26/16-153 [facility] DR: Gino Liao MD REQ: [id number] RECD: 10/27/16 STATUS: BALJEET ADKINS DR: Dano Kaminski MD _ SOURCE: WOUND SPDESC: ORDERED: Anaerobic Cult Procedure Result Reported Site Anaerobic Culture Final 10/31/16- 0802 ML Anaerobe Culture No Anaerobes Day 4 * ML - MAIN LAB ([facility]) . END OF REPORT * ML=Testing performed at Main Lab DEPARTMENT OF PATHOLOGY, [address] [place] [address] Oswaldo Cobos M.D. Director [facility] # [id number] 7 SEE RESULT BELOW Name: LORI SANTANA : [address]: Gino Liao MD Acct: [id number] Unit: [id number] AGE: 30 Location: OR Re10/26/16 SEX: F Status: DEP SDC SPEC: [id number] DOMINIK: 10/26/16-1537 [facility] DR: Gino Liao MD REQ: [id number] RECD: 10/27/16-1008 STATUS: BALJEET ADKINS DR: Dano [...] performed at Main Lab DEPARTMENT OF PATHOLOGY, [address] [place] [address] Oswaldo Cobos M.D. Director [facility] # [id number] 8 Healthcare Administration Internship: PAGE Boo 9 If is still suspected, please repeat test after 48 to 72 hours. This test detects intact HCG only and is indicated for the early detection of . Procedures Date CPT Code Description Status 10/11/2017 Inject/Drain Joint/Bursa Major Completed 10/05/2017 03160 Rad Exam; Hand Comp Completed 09/02/2017 63747 Nerve Conduction 05-06 Studies Completed 08/17/2017 03291 Rad Exam; Hand Comp Completed 08/04/2017 70530 Polysomnography Sleep Staging 4+ Parameters Completed 07/20/2017 32983 Short Arm Cast Application Completed 07/13/2017 42821 Short Arm Cast Application Completed 07/05/2017 75521 Arthrodesis CMC JT Thumb W/ Autograft Completed 07/05/2017 38998 Arthrodesis CMC JT Thumb W/ Autograft Completed 05/18/2017 52874 Rad Exam; Hand Comp Completed 05/18/201707270 Inject/Drain Joint/Bursa Small Completed 12/09/2016 10713 Rad Exam; Foot Comp Completed 11/17/2016 94608 application of short leg splint Completed 11/16/2016 70053 Short Leg Cast Completed 11/04/2016 02446 Short Leg Cast Completed 10/26/2016 78798 Transfer Tendon Ant/Post Tibial Deep Completed 10/26/2016 95748 Transfer Tendon Ant/Post Tibial Deep Completed 10/26/2016 74278 Removal Implant Deep Wire,Screw Nail,Kong Or Plate Completed 10/06/2016 33210 Short Leg Cast Completed 09/25/2016 45852 Short Leg Cast Completed 09/21/2016 04009 Osteotomy Calcaneus Dwyers Or Chambers Type Procedure Completed 09/21/2016 39242 Osteotomy Calcaneus Dwyers Or Chambers Type Procedure Completed Encounters Type Date Location Provider CPT E/M Dx Office Visit 08/26/2017 Pulmonology And Sleep Madhuri Couch 62788 G47.33 11:00a [facility] DNP, RN, [employer]WORK[employer] R53.83 E66.01 Z68.43 Office Visit 07/13/2017 8:00a Pul[place] [address] G47.9 [facility] [employer] [facility] G47.50 G25.81 E66.01 Z68.43 R35.1 R40.0 R12 Office Visit 06/15/2017 8:15a [facility] [address] M18.0 [facility] Office Visit 05/19/2017 3:15p [facility] Liao 28043 M65.871 [facility] 05/18/2017 9:00a [facility] [place] [address] M18.11 [facility] M79.641 Office Visit 04/28/2017 3:45p [facility] Liao 50271 M76.821 [facility] 04/07/2017 2:30p [facility] 95961 M76.821 [facility] M76.822 Office Visit 03/10/2017 2:15p [facility] Liao 00138 M76.821 [facility] 09/02/2016 3:15p [facility] 03300 M76.821 [facility] 08/26/2016 2:45p [facility] Liao 56988 M76.821 [facility] M72.2 Office Visit 08/21/2016 2:30p [facility] [address] Q66.89 [facility] M72.2 Office Visit 10/14/2012 1:15p [facility] Gino Liao, 22944 755.67 Vaibhav Bear Plan of Care Future Appointment(s):10/14/2017 7:00 am - Cathy Benjamin MD at [facility]12/08/2017 9:15 am - Gino Liao M.D. at [facility]29/05/2018 - Pierre Ayala, MDM75.42 Impingement syndrome of left shoulderNew Therapy:Physical TherapyFollow up: Follow up: As needed
[2017-10-18] MEDS ORDERED: methylPREDNISolone 125 MG* 2 ML VIAL IV ONE (20:27)
[2017-10-18] MEDS ORDERED: Albuterol/Ipratropium NEB.SOL* Albuterol 2.5 MG/Ipratropium 0.5 MG 3 ML INH ONE (20:27)
[2017-10-18] MEDS ORDERED: Ketorolac INJ* 30 MG/ML 1 ML VIAL IV PUSH ONE (20:30)
[2017-10-18] MEDS: Albuterol 2.5 MG/3 ML NEB.SOL* (0.083%) INH SCH (20:53)
[2017-10-18 21:12] LABS: ABS Basophils 0.1 10^3/ul (0-0.2); ABS Eosinophils 0.2 10^3/ul (0-0.6); ABS Lymphocytes 3.4 10^3/ul (1.0-4.8); ABS Monocytes 0.6 10^3/ul (0-0.8); ABS Neutrophils 8.8 10^3/ul (1.5-7.7); ABS Nucleated RBC 0 10^3/ul; Eosinophil % 1.2 % (0-6); Hematocrit 39 % (35-47); Hemoglobin 12.6 g/dl (12.0-16.0); Lymphocyte % 25.8 % (25-47); Mean Corpuscular HGB Conc 32 g/dl (31-36); Mean Corpuscular Hemoglobin 24 pg (27-31); Mean Corpuscular Volume 75 fL (80-97); Mean Platelet Volume 7 um3 (7.4-10.4); Nucleated Red Blood Cells % 0; Platelet Count 351 10^3/ul (150-450); Red Blood Count 5.25 10^6/ul (4.0-5.4); Red Cell Distribution Width 18 % (10.5-15)
--- NOTE | 2017-10-18 21:12 | RAD ---
INDICATION: Shortness of breath. COMPARISON: Comparison is made with a prior study from July 29, 2015. TECHNIQUE: A portable view of the chest was obtained. FINDINGS: Cardiac and mediastinal contours appear to be within normal limits. The lungs are clear. No pleural effusion is seen. IMPRESSION: NO EVIDENCE FOR ACUTE DISEASE.
[2017-10-18 22:24] VITALS: BP 124/56
--- NOTE | 2017-10-18 22:26 | ED ---
Marlys May Julia, scribed for Deng Ng MD on 10/18/17 at 2028 . Respiratory - HPI Summary HPI Summary: This patient is a 31 year old F presenting to [facility] with a chief complaint of gradually worsening SOB and chest pain with coughing for the past month. She states now that walking a few steps causes her SOB. The patient rates the pain 8 /10 in severity. Patient reports wheezing. Symptoms aggravated by exertion. Patient reports a history of asthma and PNA. 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 - History of Current Complaint Chief Complaint: EDUpperRespComplaint Stated Complaint: SOB/CHEST PAIN Time Seen by Provider: 10/18/17 20:18 Hx Obtained From: Patient Onset/Duration: Gradual Onset, Lasting Weeks, Still Present Pain Intensity: 8 Character: Wheezing, Dyspnea on Exertion Aggravating Factor(s): Exertion Associated Signs and Symptoms: SOB, Chest Pain with Cough Related History: Similar Episode/Dx as - Asthma/PNA - Allergy/Home Medications Allergies/Adverse Reactions: Allergies Allergy/AdvReac Type Severity Reaction Status Date / Time morphine AdvReac Severe Hives Verified 10/18/17 20:04 amoxicillin AdvReac Intermediate Hives Verified 10/18/17 20:04 pseudoephedrine AdvReac Intermediate Hives Verified 10/18/17 20:04 [From [facility]] lactose AdvReac GI Upset Verified 10/18/17 20:04 fiberglass cast material AdvReac Hives Uncoded 10/18/17 20:04 PMH/Surg Hx/FS Hx/Imm Hx Endocrine/Hematology History: Reports: Hx Diabetes, Hx Thyroid Disease - HYPO, Hx Anemia - uses supplements Cardiovascular History: Reports: Other Cardiovascular Problems/Disorders - HEART MURMER Denies: Hx Congestive Heart Failure, Hx Hypertension, Hx Pacemaker/ICD Respiratory History: Reports: Hx Asthma, Other Respiratory Problems/Disorders - PNEUMONIA 2-3 TIMES Denies: Hx Chronic Obstructive Pulmonary Disease (COPD) GI History: Reports: Hx Gastroesophageal Reflux Disease - controlled with meds, Hx Irritable Bowel - mild Denies: Hx Ulcer History: Denies: Hx Renal Disease Musculoskeletal History: Reports: Hx Arthritis - knees, neck, Hx Fibromyalgia, Hx Tendonitis - right foot, arms Sensory History: Reports: Hx Contacts or Glasses - wears glasses Denies: Hx Hearing Aid Opthamlomology History: Reports: Hx Contacts or Glasses - wears glasses Neurological History: Reports: Hx Migraine, Other Neuro Impairments/Disorders - shingles spring 2014 Psychiatric History: Reports: Hx Anxiety, Hx Depression - not currently Denies: Hx Panic Disorder - Surgical History Surgery Procedure, Year, and Place: APPENDECTOMY, OVARIAN CYST ,PILONIDAL CYSTECTOMY. right foot surgery 09/21/16. RIGHT FOOT/ANKLE SURGERY 10/26/16. RIGHT THUMB Hx Anesthesia Reactions: No - Immunization History Date of Tetanus Vaccine: 2009 Date of Influenza Vaccine: unknown Infectious Disease History: Yes Infectious Disease History: Reports: Hx Shingles Denies: Hx Clostridium Difficile, Hx Hepatitis, Hx Human Immunodeficiency Virus (HIV), Hx of Known/Suspected MRSA, Hx Tuberculosis, Hx Known/Suspected VRE , Hx Known/Suspected VRSA, History Other Infectious Disease, Traveled Outside the [place] in Last 30 Days - Family History Known Family History: Positive: Cardiac Disease, Hypertension Negative: Diabetes - Social History Alcohol Use: None Substance Use Type: Reports: None Hx Tobacco Use: Yes Smoking Status (MU): Former Smoker Type: Cigarettes Amount Used/How Often: 1 ppd for 4 years Have You Smoked in the Last Year: No Review of Systems Positive: Chest Pain - with cough Positive: Shortness Of Breath, Cough All Other Systems Reviewed And Are Negative: Yes Physical Exam - Summary Physical Exam Summary: VITAL SIGNS: Reviewed. GENERAL: Patient is a morbidly obese female who is lying comfortable in the stretcher. Patient is not in any acute respiratory distress. HEAD AND FACE: No signs of trauma. No ecchymosis, hematomas or skull depressions. No sinus tenderness. EYES: PERRLA, EOMI x 2, No injected conjunctiva, no nystagmus. EARS: Hearing grossly intact. Ear canals and tympanic membranes are within normal limits. MOUTH: Oropharynx within normal limits. NECK: Supple, trachea is midline, no adenopathy, no JVD, no carotid bruit, no c- spine tenderness, neck with full ROM. CHEST: Symmetric, no tenderness at palpation LUNGS: Mild expiratory wheezes bilaterally. No crackles. CVS: Regular rate and rhythm, S1 and S2 present, no murmurs or gallops appreciated. ABDOMEN: Soft, non-tender. No signs of distention. No rebound no guarding, and no masses palpated. Bowel sounds are normal. EXTREMITIES: FROM in all major joints, no edema, no cyanosis or clubbing. Triage Information Reviewed: Yes Vital Signs On Initial Exam: Initial Vitals Temp Pulse Resp BP Pulse Ox 98.2 F 92 22 141/92 99 10/18/17 20:04 10/18/17 20:04 10/18/17 20:04 10/18/17 20:04 10/18/17 20:04 Vital Signs Reviewed: Yes Diagnostics - Vital Signs Vital Signs Temp Pulse Resp BP Pulse Ox 10/18/17 20:04 98.2 F 92 22 141/92 99 - Laboratory Result Diagrams: 10/18/17 20:47 10/18/17 20:47 Lab Statement: Any lab studies that have been ordered have been reviewed, and results considered in the medical decision making process. - Radiology CXR Radiology Interpretation Completed By: Radiologist - NO EVIDENCE FOR ACUTE DISEASE. ED Physician has reviewed this report. - EKG 2019 Cardiac Rate: NL - at 82 BPM EKG Rhythm: Sinus Rhythm EKG Interpretation: S1 Q3 T3 pattern Disposition - Course Course Of Treatment: Patient presents with gradually worsening SOB and chest pain with coughing for the past month. She states now that walking a few steps causes her SOB. Patient has history of asthma. An EKG reveals slight abnormalities, but is not acutely concerning. A CXR is of no acute concern. Patient is givn Solu-Medrol, Toradol, Ventolin, and Albuterol. 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 - Diagnoses Provider Diagnoses: Asthma Discharge - Discharge Plan Condition: Stable Disposition: HOME Prescriptions: Albuterol 2.5MG/3ML (0.083%)* [Ventolin 2.5 MG/3 ML NEB.AQUILES*] 2.5 mg INH Q6H PRN #60 neb.aquiles PRN Reason: Sob/Wheezing predniSONE TAB* [Deltasone TAB*] 40 mg PO DAILY #10 tab Patient Education Materials: Asthma (ED) Referrals: Dano Kaminski MD [Primary Care Provider] - As Soon As Possible (Follow up with your primary care physician and your Pulmonolgist as soon as possible.) Additional Instructions: RETURN TO THE EMERGENCY DEPARTMENT FOR CHANGING OR WORSENING SYMPTOMS. The documentation as recorded by the Marlys delarosa Julia accurately reflects the service I personally performed and the decisions made by me, Deng Ng MD.
== END 2017-10-18 22:18 | disposition home or self-care (01) ==
LOC: ED 20:02
DX: J45.909 Unspecified asthma, uncomplicated (principal); R07.9 Chest pain, unspecified; Z87.891 Personal history of nicotine dependence; Z88.5 Allergy status to narcotic agent; Z88.8 Allergy status to other drugs, medicaments and biological substances; Z88.3 Allergy status to other anti-infective agents
CPT/HCPCS: 36415; 71045; 80053; 83880; 84484; 84702; 85025; 85379; 86140; 93005; 94640; 96374; 96375; 99283; A9270-GY; J1885; J2930

== ENCOUNTER 2017-11-15 06:55 | Day surgery (SDC) | payer OTHER ==
[~2017-11-15 06:55] MED LIST changes: -Buffered Lidocaine 0.9% SYRIN* 5 ML/SYR SYRINGE ONE; -Clindamycin 900 MG IVPREMIX(* 900 MG/50 ML SDV IV ONE; -Dexamethasone IV* 4 MG/ML 1 ML (4 MG) IV SLOW PU ONE; -Dexamethasone IV* 4 MG/ML 1 ML (4 MG) ONE; -Famotidine IV* 10 MG/ML 2 ML (20 mg) IV ONE; -Famotidine IV* 10 MG/ML 2 ML (20 mg) ONE
[2017-11-15] MEDS ORDERED: Clindamycin 900 MG IVPREMIX(* 900 MG/50 ML SDV IV ONE (07:01)
[2017-11-15] MEDS ORDERED: Bupivacaine 0.25% SDV* 30 ML ONE (07:05)
[2017-11-15] MEDS ORDERED: Midazolam* 1 MG/ML 2 ML VIAL (2 MG) ONE ×2 (08:02→08:33)
[2017-11-15] MEDS ORDERED: Propofol* 10 MG/ML 20 ML BTL IV PUSH ONE (08:26)
[2017-11-15] MEDS ORDERED: Dexamethasone IV* 4 MG/ML 1 ML (4 MG) ONE (08:26)
[2017-11-15] MEDS ORDERED: Famotidine IV* 10 MG/ML 2 ML (20 mg) ONE (08:26)
[2017-11-15] MEDS ORDERED: Ketorolac INJ* 30 MG/ML 1 ML VIAL ONE (08:26)
[2017-11-15] MEDS ORDERED: fentaNYL* 50 MCG/ML 2 ML VIAL (100 MCG VIAL) ONE ×3 (08:41→11:31)
[2017-11-15] MEDS ORDERED: Labetalol IV* 5 MG/ML 20 ML VIAL ONE (10:22)
[2017-11-15] MEDS ORDERED: Lidocaine 2% PF * 5 ML VIAL ONE (10:22)
[2017-11-15] MEDS ORDERED: PROCHLORPERAZINE INJ 5 MG/ML 2 ML VIAL IV PRN (11:27)
[2017-11-15] MEDS ORDERED: Levalbuterol 0.63MG/3ML NEB* UNIT OF USE INH PRN (11:27)
[2017-11-15] MEDS ORDERED: DiMENhydriNATE IV* 50 MG/ML VIAL IV PUSH PRN (11:27)
[2017-11-15] MEDS ORDERED: HYDROcodone/ACETAMIN 5-325 MG* 1 TAB PO PRN ×2 (11:27)
[2017-11-15] MEDS ORDERED: Acetaminophen TAB* 325 MG PO PRN (11:27)
[2017-11-15] MEDS ORDERED: Naloxone* 0.4 MG/ML 1 ML VIAL IV PRN (11:27)
[2017-11-15] MEDS ORDERED: fentaNYL* 50 MCG/ML 2 ML VIAL (100 MCG VIAL) IV PRN (11:27)
[2017-11-15] MEDS ORDERED: Ondansetron INJ* 2 MG/ML VIAL IV PRN (11:27)
[2017-11-15] MEDS ORDERED: HYDROcodone/ACETAMIN 5-325 MG* 1 TAB ONE (11:31)
[2017-11-15 12:17] VITALS: BP 116/73
--- NOTE | 2017-11-18 10:18 | OP ---
DATE OF OPERATION: 11/15/17 - SDS DATE OF : [birth year] SURGEON: Gino Narayan MD RECEIVING TELLER: JOE Tarango ANESTHESIA: General. PRE-OP DIAGNOSES: 1. Right thumb CMC joint fusion, non-union. 2. Right thumb metacarpophalangeal joint hyperlaxity. POST-OP DIAGNOSES: 1. Right thumb CMC joint fusion, non-union. 2. Right thumb metacarpophalangeal joint hyperlaxity OPERATIVE PROCEDURE: 1. Right thumb carpometacarpal arthroplasty with trapeziectomy. 2. Right thumb suspension with distally based flexor carpi radialis, split tendon transfer. 3. Removal of plate and screws, right thumb. 4. Right thumb metacarpophalangeal joint volar capsulodesis with volar plate advancement. INDICATIONS: Lori underwent a fusion a few months ago. She has severe pain in the area. On x-rays and CT, it looked like the fusion went onto nonunion. I had talked to her about her treatment options. She wanted to proceed with surgery. I had talked to her about revising the fusion; however, on subsequent conversations, I had counseled her that I really thought that given her medical problems including morbid obesity and diabetes and the fact that she had not healed the fusion once, I thought it would be best to convert to a basal joint arthroplasty. She had developed quite a bit of MCP joint hyperextension laxity and so I recommended that we stabilize the MCP joint as well. ESTIMATED BLOOD LOSS: 2 mL. COMPLICATIONS: None. FINDINGS: As expected. DESCRIPTION OF PROCEDURE: Lori was seen in the preoperative holding area. The correct side, site, and procedure were identified. We came back to the operating room, where the arm was prepped and draped in the usual fashion. A time- out was performed. I exsanguinated the arm with the Esmarch and the tourniquet was inflated to 250 mmHg. I then reopened her prior longitudinal incision over the dorsal radial aspect of the metacarpal base and over the trapezium. Dissection was carried down longitudinally preserving the traversing sensory nerves. I opened up the periosteum just distal to the first dorsal compartment tendons and exposed the plate and screws. Full thickness flaps were raised off of that. I then used the screw city bus driver to remove the Synthes variable angle handset plate and screws. These all came out uneventfully. Once the plate and screws were removed, I examined the fusion site. I was able to pass a Naknek blade into the fusion site and there was gross motion, it had not fused. Ultimately, I circumferentially released the soft tissue off of the trapezium and then excised in its entirety with the rongeur. It came out in a few large pieces. The FCR tendon was preserved at the base of the wound. I then examined the scaphotrapezoid joint. The articular cartilage there looked very good. I therefore raised the periosteum off of the dorsal radial aspect of the metacarpal base. A drill hole was made using sequentially larger drill bits from the dorsal radial metacarpal proximal shaft down exiting out the proximal inner aspect of the metacarpal base. I irrigated out this wound and turned my attention to the tendon transfer. I made a 1 cm transverse incision over the FCR tendon at the wrist flexion crease. The tendon was delivered up into the wound. After the sheath was opened , it was split longitudinally and a 26-gauge wire was passed into the split. I then made two transverse incisions proximal to the first at intervals of about 7 to 8 cm. The sheath was released along the entirety of the tendon. A 26- gauge wire was then passed under the skin into the more proximal wounds releasing half of the tendon at the musculotendinous junction. The muscular fragments were excised off the portion of the tendon and the tendon was tubularized and secured with a 3-0 Ethibond suture proximally. I then used a couple of 26-gauge wires to pass the tendon down into the thumb base wound. The tendon was split all the way back down to the base of the second metacarpal. It was passed through my drill tunnel in the metacarpal base and then around the intact limb of the FCR tendon using the 26-gauge wires. Appropriate tension was set and the tendon transfer was secured with 3-0 Ethibond sutures sewing all three limbs together and then two additional figure- of-eight 3-0 Ethibond sutures sewing intact limb to intact limb. The remainder of the tendon was rolled up into a ball and secured with a stitch and then placed as an interposition between the distal pole of the scaphoid and the thumb metacarpal base. At this point, the arthroplasty was looking very nice. The thumb was in a very nice position and suspended well so I irrigated out the wound. The capsule was closed with 3-0 Ethibond suture. The skin was closed over all the incisions with 4-0 nylon suture. Lastly, I turned my attention to the MCP joint. A V-shaped incision was made over the joint. Full thickness flaps were raised off the tendon sheath preserving the digital nerves. The A1 alexia was released. The tendon was retracted ulnarly. The Naknek blade was used to release the proximal volar plate and then to release it a bit radially and ulnarly so that it could be mobilized more proximally. A mini-Mitek suture was placed in the distal metacarpal shaft just proximal to the articular surface. I passed the 2-0 Ethibond sutures coming off this through the volar plate and then checked my tension. I could bring the thumb to neutral extension but no further. I therefore tied off the suture. I irrigated out the wound. The skin was closed with 4-0 nylon sutures. All the operative wounds were infiltrated with 0.25% plain Marcaine and the wounds were dressed with Xeroform, 4x4s, sterile Webril, and a thumb spica splint was placed out to the tip of the thumb with the thumb MCP joint in gentle flexion and the CMC joint in abduction. The tourniquet was deflated. The patient was woken up and taken to recovery room in stable condition. [id number]/[facility] #: [id number] EFREN
== END 2017-11-15 12:45 | disposition home or self-care (01) ==
LOC: OR 06:55
PROVIDERS: ATTEND Orthopaedic Surgery Hand Surgery
DX: M96.0 Pseudarthrosis after fusion or arthrodesis (principal); M24.241 Disorder of ligament, right hand; E11.9 Type 2 diabetes mellitus without complications; Z79.84 Long term (current) use of oral hypoglycemic drugs; G47.33 Obstructive sleep apnea (adult) (pediatric); J45.909 Unspecified asthma, uncomplicated; E66.01 Morbid (severe) obesity due to excess calories; F17.210 Nicotine dependence, cigarettes, uncomplicated; I45.10 Unspecified right bundle-branch block
CPT/HCPCS: 81025; 88300; 88304; 88311; C1713; J1100; J1885; J2250; J2704; J3010

== ENCOUNTER 2018-02-02 07:30 | Inpatient (IN) | payer OTHER ==
[~2018-02-02 07:30] MED LIST changes: +Famotidine IV* 10 MG/ML 2 ML (20 mg) IV ONE; +Metoclopramide TAB* 10 MG PO ONE; +Scopolamine 1.5 mg* PATCH TRANSDERM ONE
[2018-02-02] MEDS ORDERED: Scopolamine 1.5 mg* PATCH ONE (08:17)
[2018-02-02] MEDS ORDERED: Famotidine IV* 10 MG/ML 2 ML (20 mg) ONE (08:17)
[2018-02-02] MEDS ORDERED: Metoclopramide TAB* 10 MG ONE (08:17)
[2018-02-02] MEDS ORDERED: Ciprofloxacin 400MG IVPREMIX(* 400 MG/200 ML BAG ONE ×2 (08:18→13:15)
[2018-02-02] MEDS ORDERED: Buffered Lidocaine 0.9% SYRIN* 5 ML/SYR SYRINGE ONE (08:18)
[2018-02-02] MEDS ORDERED: Clindamycin 900 MG IVPREMIX(* 900 MG/50 ML SDV IV ONE ×2 (08:18→13:15)
[2018-02-02] MEDS ORDERED: Heparin VIAL(*) 5000 UNITS/ML VIAL (FIVE THOUSAND) ONE (08:20)
[2018-02-02] MEDS ORDERED: Propofol* 10 MG/ML 20 ML BTL IV PUSH ONE ×2 (08:22→10:00)
[2018-02-02] MEDS ORDERED: Dexamethasone IV* 4 MG/ML 1 ML (4 MG) ONE ×2 (08:22→16:27)
[2018-02-02] MEDS ORDERED: Rocuronium* 10 MG/ML VIAL ONE ×2 (08:22→11:14)
[2018-02-02] MEDS ORDERED: Ondansetron ODT TAB* 4 MG ONE (08:22)
[2018-02-02] MEDS ORDERED: Midazolam* 1 MG/ML 5 ML VIAL (5 MG) ONE (08:22)
[2018-02-02] MEDS ORDERED: Lidocaine 2% PF * 5 ML VIAL ONE (08:22)
[2018-02-02] MEDS ORDERED: fentaNYL* 50 MCG/ML 5 ML VIAL (250 MCG VIAL) ONE ×3 (08:23→12:48)
[2018-02-02] MEDS ORDERED: Bupivacaine 0.5% SDV PF* 30ML VIAL ONE (08:59)
[2018-02-02] MEDS ORDERED: Methylene Blue 0.5 %* 50 MG/10 ML AMP IV ONE ×2 (08:59→14:35)
[2018-02-02] MEDS ORDERED: Bupivacaine 0.5% PF 10 ML VIAL INJ ONE (10:04)
[2018-02-02] MEDS ORDERED: DiMENhydriNATE IV* 50 MG/ML VIAL IV PUSH PRN (10:23)
[2018-02-02] MEDS ORDERED: Ondansetron ODT TAB* 4 MG PO PRN (10:23)
[2018-02-02] MEDS ORDERED: Naloxone* 0.4 MG/ML 1 ML VIAL IV PRN (10:23)
[2018-02-02] MEDS ORDERED: Metoprolol Tartrate IV* 1 MG/ML 5 ML VIAL ONE (11:41)
[2018-02-02] MEDS ORDERED: fentaNYL* 50 MCG/ML 2 ML VIAL (100 MCG VIAL) ONE ×5 (15:00→18:18)
[2018-02-02] MEDS ORDERED: HYDROmorphone INJ* 0.5 MG/0.5 ML SYRINGE ONE ×3 (16:32→18:18)
[2018-02-02] MEDS ORDERED: HYDROmorphone INJ* 2 MG/ML CARPUJECT SYRINGE IV PRN (17:08)
[2018-02-02] MEDS ORDERED: Albuterol 2.5 MG/3 ML NEB.SOL* (0.083%) INH PRN (17:12)
[2018-02-02] MEDS ORDERED: Ketorolac INJ* 30 MG/ML 1 ML VIAL ONE (17:15)
[2018-02-02] MEDS: Ketorolac INJ* 30 MG/ML 1 ML VIAL IV PRN ×2 (17:17→23:23)
[2018-02-02] MEDS ORDERED: Dextrose 50% Syringe 50 ML* 25 GM/50 ML SYRINGE IV PUSH PRN (17:17)
[2018-02-02] MEDS: fentaNYL* 50 MCG/ML 2 ML VIAL (100 MCG VIAL) IV PRN ×5 (17:26→18:19)
[2018-02-02] MEDS ORDERED: Diazepam SYRINGE* 5 MG/ML 2 ML SYRINGE (10 MG total) ONE (18:25)
[2018-02-02] MEDS: Insulin LISPRO* 1 UNITS UNIT SUBCUT SCH ×2 (19:46→23:35)
--- NOTE | 2018-02-02 20:31 | BRIEFOPN ---
Brief Operative Note - Surgery Procedures: Procedures Pre-OP Diagnoses: Clinically severe obesity Post-op Diagnosis: same Procedure: Laparoscopic Sanaz an Y gastric bypass Surgeon: Samir Asst: Vin Lainez Anethesia: GETA EBL: 100cc IVF: see chart Specimen: none Drains: #10 BEVERLY
[2018-02-02] MEDS ORDERED: Budesonide/Formote 160/4.5(NF) MDI INH SCH (21:00)
[2018-02-02] MEDS ORDERED: HYDROmorphone INJ* 2 MG/ML CARPUJECT SYRINGE ONE (21:02)
[2018-02-02] MEDS ORDERED: Mometasone/Formoter 200/5 MDI INH SCH (21:19)
[2018-02-02] MEDS: Pantoprazole IV* 40 MG IV SCH (21:55)
[2018-02-02] MEDS: Famotidine IV* 10 MG/ML 2 ML (20 mg) IV SLOW PU SCH (21:55)
[2018-02-02] MEDS: Heparin VIAL(*) 5000 UNITS/ML VIAL (FIVE THOUSAND) SUBCUT SCH (21:58)
[2018-02-02] MEDS ORDERED: HYDROmorphone INJ* 2 MG/ML CARPUJECT SYRINGE IV ONE (22:00)
[2018-02-02] MEDS: HYDROmorphone INJ* 2 MG/ML CARPUJECT SYRINGE IV PRN (23:28)
[2018-02-03] MEDS: HYDROmorphone INJ* 2 MG/ML CARPUJECT SYRINGE IV PRN ×7 (01:28→14:16)
--- NOTE | 2018-02-03 05:03 | OP ---
CC: Dr. Dano Kaminski; [facility]; [facility] * DATE OF OPERATION: 02/02/18 - ROOM #351 DATE OF : 81 SURGEON: Lucas Dawson MD BILLING AND INSURANCE COORDINATOR: JOE Méndez and Dr. Dawson Banuelos. ANESTHESIOLOGIST: Dr. Arriaga. ANESTHESIA: General anesthesia. PRE-OP DIAGNOSES: Clinically severe obesity, obstructive sleep apnea, hypertension, and gastroesophageal reflux disease. POST-OP DIAGNOSES: Clinically severe obesity, obstructive sleep apnea, hypertension, and gastroesophageal reflux disease. OPERATIVE PROCEDURE: Laparoscopic Sanaz-en-Y gastric bypass. ESTIMATED BLOOD LOSS: 100 cc. IV FLUIDS: Crystalloid fluid given, please see chart. SPECIMEN: None. DRAINS: BEVERLY drain left at the gastrojejunostomy. COUNTS: Lap pad count and instrument count correct at the end of the procedure. DESCRIPTION OF PROCEDURE: The patient was identified in the preoperative area. She was marked. Consent signed. The case was discussed with her and she was taken back to the operating room and placed on the operating table in the supine position. Preoperative antibiotics were given. Sequential devices were placed on bilateral lower extremities. General anesthesia was induced. A Cummings catheter was inserted. The patient's abdomen was prepped and draped in the standard surgical fashion and a time-out was performed. Folds of the umbilicus were elevated anteriorly and a Veress needle was inserted into the abdominal cavity, which was then allowed to insufflate to a pressure of 15 mmHg. The patient tolerated the insufflation well. Hermon between the xiphoid and the umbilicus just a left of midline, a 12-mm trocar was inserted. Laparoscope was inserted through this and there was no evidence of injury from the trocar insertion or from the Veress needle. Additional trocars were then placed in the following position: A 12 mm and 5 mm in the right upper quadrant and a 12 mm and a 5 mm in the left upper quadrant. We were able to lift the enlarged liver up, but could accurately see the gastroesophageal fat pad and felt comfortable continuing the procedure. Next, the omentum was reflected superiorly. There was attachment to the epiploic of descending colon. This was taken down with the LigaSure device until we could appropriately mobilize the omentum superiorly. Transverse colon was identified as was the ligament of Treitz. The ligament of Treitz was grasped and approximately 50 cm of small bowel was run antegrade. The bowel was transected at the site with 45 mm montes GERHARD stapling device. The proximal portion of the transected bowel which would become the biliopancreatic limb was held and an enterotomy made at this site. The mesentery was undercut with a LigaSure device. The Sanaz limb was counted of approximately 100 cm. An enterotomy was then made and the biliopancreatic limb and the distal small bowel were made it with a 60 mm montes GERHARD stapling device. Common defect was reapproximated with interrupted 2 -0 silk sutures in a [id number] fashion and the mesentry defect was similarly closed. Attention was then turned towards the omentum. This was split with the LigaSure device, feeling that this was an enlarged omentum and we could utilize the space that it would occupy. Next, the patient was placed in a steep reverse Trendelenburg. A Loli retractor was inserted through the subxiphoid incision and the liver was retracted anteriorly into the right, this exposed the gastroesophageal fat pad. This was grasped and retracted towards the right lower quadrant and both blunt and sharp dissection was carried out to appreciate the left crura. Next, the gastric pouch was made starting on the lesser curvature at approximately the third crossing vessel. A retrogastric window was made from a small serosal injury to the stomach and we ensured that the first staple line placed this small area on the gastric remnant. A 45 mm montes GERHARD stapling device was fired across this. An additional 60 mm montes GERHARD stapling device was fired up towards the angle of His and a followup 60 mm purple loaded GERHARD stapling device with reinforcement strip was fired to complete the stomach transection. Next, the small bowel was brought in apposition to this. There was some tension , but we were able to bring up the jejunojejunostomy superiorly to allow for less tension. Stay sutures of 2-0 silk sutures were utilized to bring the mesenteric aspect of the small bowel in apposition to the lateral staple line of the gastric pouch. Once the stay sutures were in place, we made a gastrotomy over an Mavis tube that the anesthesiologist placed into the stomach pouch. An enterotomy was made. These were both done with the cautery. We then made made the 2 with 30 mm montes GERHARD stapling devices, but I could not advance the stapler all the way to the hub, but rather to about approximately 2 cm. We did fire this and looked at the anastomosis, it was wide open. What had happened is that there did appear to be tension on this and we had viewed the common defect of the small bowel and stomach and I did not feel comfortable reapproximated this from small bowel to stomach. Therefore, we tried to close the defect in a transverse fashion with stomach to stomach and at this point at the mid portion it appears that we were going to make smaller the anastomosis. At this point, we made a decision to take down the anastomosis and do a hand sewn. We did this by taking down the stay sutures with scissors and with retraction inferiorly on the stomach pouch for the staple line across the stomach pouch. I felt that the pouch is still of an appropriate sizing and we took down the mesentry with a small bowel and transected this with a 60 mm montes GERHARD stapling device. With a small portion of the stomach and approximately 4 cm of small intestine were taken out separately with endoscopic retrieval bags. The small bowel was intact. This would be the Sanaz limb again. It was intact and showed no evidence of bleeding. Regarding the stomach pouch, we looked at the staple lines. There were no crossing staple lines at this point and the small bowel was brought up towards the stomach pouch. Stay sutures using 2-0 silk sutures were placed for the posterior row of the anastomosis. A gastrotomy was made over an Mavis tube and an enterotomy was similarly made with the cautery. We then closed the posterior aspect of this anastomosis with an additional 3-0 PDS suture in a running fashion. I tied this to itself medially and then attempted to place corner stitches with 2-0 silk sutures. We performed this. We were able to pass the Mavis tube through the anastomosis easily and the anterior sutures were then placed. The anastomosis appeared intact. We then did a methylene blue dye test on the anastomosis. We noted a small amount of blue dye posteriorly. I assured this area with additional 2-0 silk sutures, but the repeat blue dye test persisted with a leak on the posterolateral aspect. We applied sutures at this site. This was closed to the staple line from the initial stapling and after 3 attempts, we continued to have methylene blue and on the last attempt, there was a significant amount of blue dye present in the abdominal cavity after the testing to suggest larger rent possibly from passing the Mavis tube on multiple occasions. At this time, I made a decision to take down this anastomosis entirely, a difficult decision, but we did not feel that after multiple attempts to shoring up these areas, these sutures were only masking true defect within the anastomosis that could not be fully appreciated. Again, I took this down with a 60 mm montes GERHARD stapling device, staying close to the anastomosis and only moving very small piece of stomach pouch. The small bowel was let to hang while we looked at the stomach pouch. The Mavis tube had remained and we injected this with air while the pouch was under saline just to ensure there was not another opening that had not been identified. The pouch distended without evidence of bubbles and we did not see any defect, appeared intact. There were crossing staple lines in the lesser curvature. We did take down some of the lesser curvature attachments with LigaSure device to better appreciate the full stomach pouch, appeared to have good blood supply. Next, the mesentery of the Sanaz limb was taken and an additional 4 cm of Sanaz limb ultimately was taken with a 60 mm montes GERHARD stapling device. At this point, we made our third and last attempt at the anastomosis with [id number] sewing. We took one of the staple lines and this was the most superior staple line from the initial stomach pouch and cut the distal portion of with scissors until an enterotomy was made. We did use cautery as needed and a wide open gastrotomy was appreciated. The mucosa on the inside appeared intact. Hemostasis was achieved with cautery as needed. Next, an enterotomy was made and posterior sutures were placed using 2-0 silk sutures. Corner stitches were thrown in similar fashion with interrupted 2-0 silk sutures and anterior interrupted 2-0 silk sutures were placed. Prior to tying these, we were able to pass the Mavis tube into the proximal Sanaz limb. The sutures were tied and then an additional methylene blue dye test was performed. It showed no evidence of extravasation of the blue dye and therefore, it was suctioned back off by the anesthesiologist and the tube was removed altogether. We looked at the posterior aspect of the anastomosis as well as the anterior and it appeared intact. It was viable, pink and then our attention was returned towards the lesser curvature of the stomach pouch. Two crossing staple lines at this site were brought together with 2-0 silk sutures and a portion of the leaflet of the greater omentum from that had been earlier split was brought up into this site. This was away from the anastomosis, but along the area of the lesser curvature distally. This was then tied. We then placed a 10 mm BEVERLY drain into the abdomen and brought it out through the left lateral most port site and sutured it to the skin with 3-0 Prolene sutures , placed it behind the gastrojejunostomy anastomosis and draped it under the liver. The Loli retractor was removed and the liver fell back down on to the stomach entirely covering the stomach pouch and the anastomosis. I reviewed the jejunojejunostomy. There was no evidence of blue dye at this site and appeared intact with no evidence of ischemic changes. Tables repositioned back to neutral. The abdomen was allowed to collapse. Trocars were removed under direct vision and all the additional 5 skin incisions were reapproximated with 4-0 Monocryl subcuticular sutures followed by Steri-Strips and sterile dressing. The patient tolerated the procedure well. This did prove to be a lengthy procedure, taking over 6 hours which was over 100% more than typical. The patient was transferred into the PACU, extubated for planned admission. [id number]/[facility] #: [id number] EFREN
[2018-02-03] MEDS: Ketorolac INJ* 30 MG/ML 1 ML VIAL IV PRN ×3 (05:46→21:29)
[2018-02-03] MEDS: Heparin VIAL(*) 5000 UNITS/ML VIAL (FIVE THOUSAND) SUBCUT SCH ×3 (05:50→21:36)
[2018-02-03 05:55] LABS: ABS Basophils 0 10^3/ul (0-0.2); ABS Eosinophils 0 10^3/ul (0-0.6); ABS Lymphocytes 0.8 10^3/ul (1.0-4.8); ABS Monocytes 0.6 10^3/ul (0-0.8); ABS Neutrophils 10.6 10^3/ul (1.5-7.7); ABS Nucleated RBC 0 10^3/ul; Eosinophil % 0 % (0-6); Hematocrit 30 % (35-47); Hemoglobin 9.4 g/dl (12.0-16.0); Lymphocyte % 6.7 % (25-47); Mean Corpuscular HGB Conc 31 g/dl (31-36); Mean Corpuscular Hemoglobin 23 pg (27-31); Mean Corpuscular Volume 74 fL (80-97); Mean Platelet Volume 7.7 um3 (7.4-10.4); Nucleated Red Blood Cells % 0; Platelet Count 275 10^3/ul (150-450); Red Blood Count 4.06 10^6/ul (4.00-5.40); Red Cell Distribution Width 17 % (10.5-15); White Blood Count 12.1 10^3/ul (3.5-10.8)
[2018-02-03] MEDS: Insulin LISPRO* 1 UNITS UNIT SUBCUT SCH ×4 (06:00→23:44)
[2018-02-03 06:10] LABS: EGFR Non-African American 85.8 (>60)
[2018-02-03] MEDS: PTO:Budesonide/Formote 160/4.5(NF) MDI INH SCH ×2 (07:55→20:00)
[2018-02-03] MEDS: Famotidine IV* 10 MG/ML 2 ML (20 mg) IV SLOW PU SCH ×2 (07:55→21:32)
[2018-02-03] MEDS: PTO:Albuterol HFA INHALER* 8 gm MDI INH PRN ×2 (08:02→17:12)
--- NOTE | 2018-02-03 08:35 | PN ---
Progress Note - Progress Note Date of Service: 02/03/18 SOAP: Subjective:POD#1 s/p lap gastric bypass c/o bilateral foot pain;minimal abd pain;no nausea;no flatus [] Objective:afeb,VSS;02sat 94%;lungs:clear bilat;heart:RRR;abd:quiet,incisions intact with steristrips,no erythema;ext:palpable pedal pulses bilat;SCDS on;no obvious skin breakdown on feet [] Assessment:Dr Dawson aware of foot pain;she wants to try walking with flip flops [] Plan:await UGI today before starting clears;d/c oliver;possible add med for neuropathy per Dr Dawson []
--- NOTE | 2018-02-03 13:32 | RAD ---
INDICATION: 1 day postop gastric bypass. Assess for enteric leak. COMPARISON: None. TECHNIQUE: Following ingestion of effervescent granules the patient swallowed barium under fluoroscopic observation. Multiple spot images of the esophagus, stomach, and duodenum were obtained. 0.4 minutes fluoroscopy. REPORT AND IMPRESSION: #. Contrast propagated from the esophagus through the gastric pouch to the limb without delay. #. No enteric leak visualized. #. Surgical drain noted. CPT II Codes: G9500
[2018-02-03] MEDS: HYDROmorphone INJ* 0.5 MG/0.5 ML SYRINGE IV PRN ×3 (16:28→23:27)
[2018-02-03] MEDS: HYDROcodone/ACET. 7.5/325 LIQ* 15 ML UDC PO PRN ×2 (17:10→23:25)
[2018-02-03] MEDS: D5W 1/2 NS KCl 20 Meq 1000 ML* 1,000 ML IV SCH (17:26)
[2018-02-03] MEDS: Pantoprazole IV* 40 MG IV SCH (21:31)
[2018-02-03] MEDS: Ondansetron ODT TAB* 4 MG SL PRN (23:32)
[2018-02-04] MEDS: HYDROmorphone INJ* 0.5 MG/0.5 ML SYRINGE IV PRN ×4 (01:30→07:38)
[2018-02-04] MEDS: D5W 1/2 NS KCl 20 Meq 1000 ML* 1,000 ML IV SCH ×3 (03:08→18:55)
[2018-02-04] MEDS: Ketorolac INJ* 30 MG/ML 1 ML VIAL IV PRN ×4 (03:35→21:32)
[2018-02-04] MEDS: HYDROcodone/ACET. 7.5/325 LIQ* 15 ML UDC PO PRN ×4 (05:38→18:45)
[2018-02-04] MEDS: Heparin VIAL(*) 5000 UNITS/ML VIAL (FIVE THOUSAND) SUBCUT SCH ×3 (05:39→22:20)
[2018-02-04] MEDS: Insulin LISPRO* 1 UNITS UNIT SUBCUT SCH ×4 (05:43→23:56)
[2018-02-04] MEDS: PTO:Budesonide/Formote 160/4.5(NF) MDI INH SCH ×2 (08:08→19:19)
[2018-02-04] MEDS: Famotidine IV* 10 MG/ML 2 ML (20 mg) IV SLOW PU SCH ×2 (08:20→21:06)
[2018-02-04] MEDS: Ondansetron ODT TAB* 4 MG SL PRN (12:25)
--- NOTE | 2018-02-04 16:16 | PN ---
Progress Note - Progress Note Date of Service: 02/04/18 SOAP: Subjective: Pt seen and examined. earlier today and then again just now. We ambulated earlier, but b/l foot pain and burning persists. This is managed with Dilaudid no nausea, tolerating PO fluids Objective: af vss uo fair (some output not recorded however) lungs: clear abdo: soft. obese, minimal tenderness BEVERLY serous Ext: tender at bottoms of feet b/l at lateral aspects. less redness. FROM Assessment: POD 2 RYGB, prolonged operation Plan: pain control IVF oob
[2018-02-04] MEDS: HYDROmorphone INJ* 0.5 MG/0.5 ML SYRINGE IV SLOW PU PRN ×2 (16:34→22:41)
[2018-02-04] MEDS: Pantoprazole IV* 40 MG IV SCH (21:06)
[2018-02-05] MEDS: Ketorolac INJ* 30 MG/ML 1 ML VIAL IV PRN ×3 (03:31→16:43)
[2018-02-05] MEDS: D5W 1/2 NS KCl 20 Meq 1000 ML* 1,000 ML IV SCH (05:02)
[2018-02-05] MEDS: HYDROcodone/ACET. 7.5/325 LIQ* 15 ML UDC PO PRN ×3 (05:11→18:16)
[2018-02-05] MEDS: Heparin VIAL(*) 5000 UNITS/ML VIAL (FIVE THOUSAND) SUBCUT SCH ×3 (05:54→21:57)
[2018-02-05] MEDS: Insulin LISPRO* 1 UNITS UNIT SUBCUT SCH (05:58)
[2018-02-05] MEDS ORDERED: Scopolamine PATCH Remove* 1 NOTE MISC PATCH OFF ONE (06:00)
[2018-02-05] MEDS: PTO:Budesonide/Formote 160/4.5(NF) MDI INH SCH ×2 (07:45→19:18)
[2018-02-05] MEDS: Famotidine IV* 10 MG/ML 2 ML (20 mg) IV SLOW PU SCH ×2 (07:46→20:03)
[2018-02-05] MEDS: HYDROmorphone INJ* 0.5 MG/0.5 ML SYRINGE IV SLOW PU PRN (07:46)
--- NOTE | 2018-02-05 09:16 | PN ---
Progress Note - Progress Note Date of Service: 02/05/18 SOAP: Subjective: Pt seen and examined. Still c/o foot pain- burning, throbbing L>R T no nausea, tolerating PO fluids Objective: af vss uo good lungs: clear abdo: soft. obese, minimal tenderness BEVERLY serous Ext: tender at bottoms of feet b/l at lateral aspects; mostly unchanged Assessment: POD 3 RYGB, prolonged operation with B/L foot pain likely 2ary to pressure, muscle injury Plan: pain control d/c IVF Neurontin oob
[2018-02-05] MEDS: Gabapentin CAP(*) 100 MG PO SCH ×2 (10:09→20:00)
[2018-02-05] MEDS: Lansoprazole susp Kit 3 MG/ML (30 MG = 10 ML) PO SCH (20:02)
[2018-02-06] MEDS: Ondansetron ODT TAB* 4 MG SL PRN ×2 (00:34→10:25)
[2018-02-06] MEDS: HYDROcodone/ACET. 7.5/325 LIQ* 15 ML UDC PO PRN ×2 (04:25→08:33)
[2018-02-06] MEDS: Heparin VIAL(*) 5000 UNITS/ML VIAL (FIVE THOUSAND) SUBCUT SCH (05:58)
[2018-02-06] MEDS: Lansoprazole susp Kit 3 MG/ML (30 MG = 10 ML) PO SCH (07:41)
[2018-02-06] MEDS: Gabapentin CAP(*) 100 MG PO SCH (07:42)
[2018-02-06] MEDS: PTO:Budesonide/Formote 160/4.5(NF) MDI INH SCH (07:42)
[2018-02-06] MEDS: Famotidine IV* 10 MG/ML 2 ML (20 mg) IV SLOW PU SCH (07:42)
[2018-02-06 10:23] VITALS: BP 121/57
--- NOTE | 2018-02-06 11:18 | DS ---
CC: Dr. Dano Kaminski; [facility] * DISCHARGE SUMMARY: DATE OF ADMISSION: 02/02/18 DATE OF DISCHARGE: 02/06/18 HISTORY OF PRESENT ILLNESS: Ms. Santana is a 32-year-old female who was diagnosed with clinically severe obesity, obstructive sleep apnea, gastroesophageal reflux disease, hypertension, who was worked up as an outpatient with a diagnosis of clinically severe obesity and presented to the hospital to Same Day Surgery and underwent a laparoscopic Sanaz-en-Y gastric bypass. Please see operative report for details. Procedure was prolonged and the patient did transfer to the PACU and on to the short-stay surgical unit. The patient's chief complaint was pain at the feet bilaterally. She was able to place some weight on it on day 0. By postop day 1, she continued to have pain at the feet with high severity. This was treated with narcotics. She was maintained n.p.o. status until she underwent an upper GI study and by postoperative day 1 and then was started on clears. She tolerated the clear diet, had bowel movements that were loose in the early setting and then normalized. By postoperative day 3, the patient still had continued pain at her feet left side more than right but was able to ambulate but not in her typical speed. She was examined daily with regards to this. By postoperative day 3, I did start the patient on Neurontin. She was tolerating diet. IV fluids were turned off and she was treated for pain again mostly at the left foot and the right foot. By postoperative day 4, the patient had some improvement and plan was for discharge home. On day of discharge, physical exam was performed. The patient was afebrile with stable vital signs. Alert and oriented x3, in no apparent distress. Lungs clear to auscultation bilaterally. Abdomen was soft, obese, nontender. Dressings had been removed, Steri-Strips in place. Mild nonblanching erythema at the right side incisions. BEVERLY drain with serous output that measured 160 cc for the day. Extremities: She had no calf tenderness. She continued to have tenderness along the plantar aspect laterally both of her feet. There is no signs of infection or ischemia. Palpable pulses. Full range of motion. IMPRESSION: Postoperative day 4 from gastric bypass procedure with soft tissue injury and discomfort to the lateral aspect of her feet likely secondary to the necessary positioning in the operating room. Plan is for discharge home to restart her medications and we will include Neurontin 200 mg 3 times a day. The patient is scheduled to be seen in [facility] for postop visit. The patient understands that I will be out of town for the next 10 days. Her questions were answered and she will be discharged. [id number]/[facility] #: [id number] MTDD
== END 2018-02-06 11:30 | disposition home or self-care (01) | DRG 403 ==
LOC: AA 08:02 → SSU 17:08
PROVIDERS: ADMIT Surgery; ATTEND Surgery
PROC: 0D164ZA Bypass Stomach to Jejunum, Percutaneous Endoscopic Approach (ICD-10-PCS; principal; 2018-02-02 09:15)
DX: E66.01 Morbid (severe) obesity due to excess calories (principal); M96.89 Other intraoperative and postprocedural complications and disorders of the musculoskeletal system; K21.9 Gastro-esophageal reflux disease without esophagitis; R73.01 Impaired fasting glucose; F41.9 Anxiety disorder, unspecified; F32.9 Major depressive disorder, single episode, unspecified; E03.9 Hypothyroidism, unspecified; E28.2 Polycystic ovarian syndrome; G47.33 Obstructive sleep apnea (adult) (pediatric); I45.10 Unspecified right bundle-branch block; J44.9 Chronic obstructive pulmonary disease, unspecified; I10 Essential (primary) hypertension; M79.672 Pain in left foot; Y92.234 Operating room of hospital as the place of occurrence of the external cause; Y83.8 Other surgical procedures as the cause of abnormal reaction of the patient, or of later complication, without mention of misadventure at the time of the procedure; M79.671 Pain in right foot; Z82.49 Family history of ischemic heart disease and other diseases of the circulatory system; Z80.0 Family history of malignant neoplasm of digestive organs; Z88.1 Allergy status to other antibiotic agents; Z88.5 Allergy status to narcotic agent; Z88.8 Allergy status to other drugs, medicaments and biological substances; Z83.3 Family history of diabetes mellitus; Z87.891 Personal history of nicotine dependence; Z68.43 Body mass index [BMI] 50.0-59.9, adult
CPT/HCPCS: 36415; 43644; 74246; 80048; 81025; 83735; 84100; 85025; 94640; A9270-GY; C1776; J0744; J1100; J1170; J1644; J1885; J2250; J2704; J3010; J3360; J3490

== ENCOUNTER 2018-02-17 21:47 | Observation (INO) | payer OTHER ==
--- OUTSIDE RECORDS SUMMARY | 2018-02-17 22:04 | XMS REPORT ---
:1985 External Reference #:[id number] Author Organization [facility] Address [address] [place] [address] [place] [address] Phone [phone] Care Team Providers Name Role Phone Dano Kaminski MD Primary Care Physician Unavailable Payers Type Date Identification Numbers Payment Provider Subscriber Commercial Effective: Policy Number: Xander Santana 2012 [id number] Group Number: [id number] [address] PayID: [id number] [place] [address] Problems Date Description Provider Status Onset: 05/18/2017 Localized, primary osteoarthritis Gino Narayan MD Active of the hand Onset: 08/26/2017 Obstructive sleep apnea syndrome Madhuri Couch DNP, RN, Active 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-BC Onset: 08/26/2017 Body mass index 40+ - severely Madhuri Couch DNP, RN, Active obese 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-BC Family History Date Family Member(s) Problem(s) Comments General Heart Disease General Cancer Father Hypercholesterolemia Mother No Current Problems Siblings 2 1 sister with Asthma Social History Type Date Description Comments Marital Status Lives With Family Occupation [employer] 08/26/17 Occupation Currently Working Cigarette Use Former [...] Form Strength Qnty SIG Indications Ordering Provider Ranitidine HCL Active Tablets 300mg TK 1 T PO Unknown /0000 D Montelukast Active Tablets 10mg TK 1 T PO Unknown Sodium qd Metformin HCL Active Tablets 500mg TK [...] /0000 every day Iron Active daily Unknown Potassium Active Tablets 99mg once a day Unknown Calcium/Magnesium Active Tablets Vit D3 3 by mouth Unknown /Zinc/Vitamin D3 / a day Gabapentin Active Capsules 300mg 1 cap 3 Alison, / times Christina, daily CNM Opurity Bypass Active Chewtabs 1 tab Unknown Optimized daily Hydrocodone-Aceta 11/24 Hx Tablets 5-325mg 30tab 1 or 2 Gino yoder s tabs by Sylvain, - mouth 12/11 every - hours as needed for pain Zofran Odt 11/22 Hx Tablets 8mg 10tab allow 1 Dispers s tablet to Sylvain, - disolve in 12/11 mouth every 12 hours as needed for nausea. Hydrocodone-Aceta 11/15 Hx Tablets 5-325mg 30tab 1 or 2 Gino valencia s tabs by Sylvain, - mouth 11/22 every - hours as needed for pain Tramadol HCL 10/12 Hx Tablets 50mg 20tab 1 tablets s by mouth Sylvain, - every 6 02/13 hours needed pain Cast 07/06 Hx Misc Right Gino Protector/Full- upper gisselle Narayan Adult - extremity 08/26 Hydrocodone-Aceta 07/05 Hx Tablets 5-325mg 30tab 1 or 2 Gino min s tabs by Sylvain, - mouth 08/10 every 6- hours as needed [...] Sylvain, - every 4-6 MD 03/09 hours as needed pain Oxycodone HCL 10/26 Hx Tablets 5mg 40tab 1-2 tabs s by mouth Keshawn, - every 4-6 M.D. 10/27 hours as [...] - every 4-6 M.D. 09/15 hours needed Hydrochlorothiazi Hx Capsules 12.5mg TK 1 C PO Unknown de D - 02/13 Clindamycin HCL Hx Capsules 300mg TK 1 C PO Unknown /0000 Q 6 H - 08/20 Pulmicort Hx Aerosol 180mcg/Ac Inhale 1 Unknown Flexhaler / t puff PO Q - 12 H 08/20 Fluticasone Hx Suspension 50mcg/Act Use 1 Unknown Propionate /0000 Agness In - Each 08/20 Nostril qd Green Vibrance Hx 1 scoop Unknown /0000 into - liquid 04/13 Cetirizine HCL Hx Tablets 10mg 1 by mouth Unknown /0000 every day - 06/14 Flovent Diskus 00 Hx Aerosol 100mcg/Bl 1 Unknown /0000 ist inhalation - daily 02/08 Fluticasone Hx Suspension 50mcg/Act 2 sprays Unknown each - nostril 10/13 Tramadol HCL 00 Hx Tablets 50mg TK 1 To 2 Unknown /0000 TS PO Q 4 - To 6 H PRF 04/27 Pain. 6 Prednisone 00/ Hx Tablets 20mg TK 2 TS PO Unknown /0000 D - 09/14 Cipro Hx Tablets 500mg 1 by mouth Unknown /0000 twice a - day for 10 Vitamin D3 Hx Capsules 2000Unit 1 by mouth Unknown /0000 every day - 02/13 Medications Administered in Office Medication Date Status Form Strength Qnty SIG Indications Ordering Provider Celestone 3 mg Administered Injection Pierre Sargent and 3mg 018 MD Lucy Celestone 3 mg Administered Injection Gino and 3mg 017 MD Sylvain Vital Signs Date Vital Result Comment 02/15/2018 Height 66 inches 5'6" Weight 332.00 lb Heart Rate 78 /min BP Systolic Sitting 126 mmHg BP Diastolic Sitting 76 mmHg Respiratory Rate 18 /min Pain Level 4 BMI (Body Mass Index) 53.6 kg/m2 12/29/2017 Height 66 inches 5'6" Weight 350.00 lb Heart Rate 101 /min BP Systolic 137 mmHg BP Diastolic 81 mmHg Body Temperature 97.6 F BMI (Body Mass Index) 56.5 kg/m2 12/17/2017 Respiratory Rate 17 /min Pain Level 3 12/08/2017 Height 66 inches 5'6" Weight 353.00 lb Heart Rate 76 /min BP Systolic Sitting 136 mmHg BP Diastolic Sitting 72 mmHg Respiratory Rate 16 /min Pain Level 3 BMI (Body Mass Index) 57.0 kg/m2 12/01/2017 Height 66 inches 5'6" Weight 353.00 lb Heart Rate 80 /min BP Systolic 126 mmHg BP Diastolic 72 mmHg Body Temperature 99.2 F Pain Level 0 BMI (Body Mass Index) 57.0 kg/m2 11/24/2017 Height 66 inches 5'6" Weight 353.00 lb Heart Rate 89 /min Respiratory Rate 16 /min Body Temperature 97.7 F Pain Level 9 BMI (Body Mass Index) 57.0 kg/m2 11/09/2017 Height 66 inches 5'6" Weight 353.00 lb Heart Rate 102 /min BP Systolic Sitting 130 mmHg BP Diastolic Sitting 80 mmHg Respiratory Rate 18 /min Body Temperature 99.0 F Pain Level 6 BMI (Body Mass Index) 57.0 kg/m2 11/08/2017 Height 66 inches 5'6" Weight 353.00 lb Heart Rate 100 /min BP Systolic Sitting 126 mmHg L Forearm reg cuff BP Diastolic Sitting 100 mmHg L Forearm reg cuff Respiratory Rate 24 /min O2 % BldC Oximetry 98 % On Ra BMI (Body Mass Index) 57.0 kg/m2 10/14/2017 Height 66 inches 5'6" Weight 357.38 [...] Test Date Test Result H/L Range Note CBC No Diff 01/27/2018 White Blood Count 10.5 10^3/uL 3.5-10.8 Red Blood Count 4.90 10^6/uL 4.00-5.40 Hemoglobin 11.8 g/dL Low 12.0-16.0 Hematocrit 36 % 35-47 Mean Corpuscular Volume 74 fL Low 80-97 Mean Corpuscular Hemoglobin 24 pg Low 27-31 Mean Corpuscular HGB Conc 33 g/dL 31-36 Red Cell Distribution Width 18 % High 10.5-15 Platelet Count 400 10^3/uL 150-450 Mean Platelet Volume 7.3 um3 Low 7.4-10.4 Basic Metabolic Panel 01/27/2018 Sodium 139 mmol/L 135-145 Potassium 4.3 mmol/L 3.5-5.0 Chloride 102 mmol/L 101-111 Co2 Carbon Dioxide 27 mmol/L 22-32 Anion Gap 10 mmol/L 2-11 Glucose 97 mg/dL 70-100 Blood Urea Nitrogen 12 mg/dL 6-24 Creatinine 0.76 mg/dL 0.51-0.95 BUN/Creatinine Ratio 15.8 8-20 Calcium 9.6 mg/dL 8.6-10.3 Egfr Non- 87.1 >60 Egfr 105.4 >60 1 Laboratory test 11/15/2017 Surgical Pathology SEE RESULT BELOW 2 finding Laboratory test 11/15/2017 Point of Care 108 mg/dL High 70-100 3 finding Glucose Laboratory test 07/05/2017 Point of Care 94 mg/dL 70-100 4 finding Glucose Laboratory test 10/26/2016 Surgical Pathology SEE RESULT BELOW 5 finding Laboratory test 10/26/2016 (HCG) Negative Negative 6 finding Urine Laboratory test 10/26/2016 Point of Care 94 mg/dL 74-106 7 finding Glucose Laboratory test 10/26/2016 Anaerobic Culture SEE RESULT BELOW 8, 9 finding Wound Culture/Sensi 10/26/2016 Wound/Misc SEE RESULT BELOW 8, 10 Culture-Gram Stain Laboratory test 09/21/2016 Point of Care 109 mg/dL High 74-106 11 finding Glucose Laboratory test 09/21/2016 (HCG) Negative Negative 12 finding Urine 1 Because ethnic data is not always readily available, this report includes an eGFR for both -Americans and non- Americans. The National Kidney Disease Education Program (NKDEP) does not endorse the use of the MDRD equation for patients that are not between the ages of 18 and 70, are , have extremes of body size, muscle mass, or nutritional status, or are non- or non-. According to the National Kidney Foundation, irrespective of diagnosis, the stage of the disease is based on the level of kidney function: Stage Description GFR(mL/min/1.73 m(2)) 1 Kidney damage with normal or decreased GFR 90 2 Kidney damage with mild decrease in GFR 60-89 3 Moderate decrease in GFR 30-59 4 Severe decrease in GFR 15-29 5 Kidney failure <15 (or dialysis) 2 SEE RESULT BELOW Name: LORI SANTANA : [address]: Gino Narayan MD Acct: [id number] Unit: [id number] AGE: 32 Location: OR Re11/15/17 SEX: F Status: DEP [facility] [place] SPEC: [id number] DOMINIK: 11/15/[address] [facility] [address]: Gino Narayan MD REQ: [id number] RECD: 11/15/17 STATUS: SOUT _ ORDERED: Decal, LEVEL 1, LEVEL 3 THIS IS A CORRECTED REPORT 11/18/175010 Corrected Report FINAL DIAGNOSIS 1. Bone and cartilage trapezium: -- Severe degenerative osteoarthritic changes. 2. Hand, right, hardware removal: Foreign body (orthopedic hardware) (Gross diagnosis). Corrected report status due case being signed out before completed. The diagnoses remain unchanged. 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 The specimen is received in formalin labeled, Right Trapezium, and consists of a 2.9 x 1.9 by up to 1.3 cm aggregate of montes pink irregular bone fragments. Head Sampler sections, one cassette following decalcification. 2. The specimen is received fresh labeled, Explanted Hardware-One Plate, Six Screws, and consists of a 2.2 by up to 1.1 x 0.1 cm silver metallic irregular plate with multiple holes. Received separately in the same container are six silver metallic threaded Abisai-headed screws ranging from 0.9 x 0.1 cm to 1.6 x 0.1 cm. Per established hospital medical staff protocol, no tissue is submitted. Gross only. Signed (signature on file) Oswaldo Cobos MD 0941 END OF REPORT DEPARTMENT OF PATHOLOGY, [address] [place] [address] Oswaldo Cobos M.D. Director [facility] # [id number] 3 Betting Clerk: [id number] Betting Clerk: [id number] 5 SEE RESULT BELOW Name: LORI SANTANA : [address]: Gino Liao MD Acct: [id number] Unit: [id number] AGE: 30 Location: OR Re10/26/16 SEX: F Status: DEP [facility] [place] SPEC: [id number] DOMINIK: 10/26/16- [facility] DR: Gino Liao MD REQ: [id number] RECD: 10/27/16-1007 STATUS: SOUT _ ORDERED: Decal, [...] x 2.5 by up to 0.7 cm. Head Sampler sections, one cassette following decalcification. Signed (signature on file) Ema Alas MD 1058 END OF REPORT * ML=Testing performed at Main Lab DEPARTMENT OF PATHOLOGY, [address] [place] [address] Oswaldo Cobos M.D. Director [facility] # [id number] 6 If is still suspected, please repeat test after 48 to 72 hours. This test detects intact HCG only and is indicated for the early detection of . 7 Betting Clerk: [id number] BRODY MCNAIR 8 RIGHT FOOT 9 SEE RESULT BELOW Name: LORI SANTANA : [address]: Gino Liao MD Acct: [id number] Unit: [id number] AGE: 30 Location: OR Re10/26/16 SEX: F Status: DEP [facility] SPEC: [id number] DOMINIK: 10/26/16-[address] [facility] [address]: Gino Liao MD REQ: [id number] RECD: 10/27/16 STATUS: BALJEET ADKINS DR: Dano Kaminski MD _ SOURCE: WOUND SPDESC: ORDERED: Anaerobic Cult Procedure Result Reported Site Anaerobic Culture Final 10/31/16- 0802 ML Anaerobe Culture No Anaerobes Day 4 * ML - MAIN LAB ([facility]) . END OF REPORT * ML=Testing performed at Main Lab DEPARTMENT OF PATHOLOGY, [address] [place] [address] Oswaldo Cobos M.D. Director [facility] # [id number] 10 SEE RESULT BELOW Name: LORI SANTANA : [address]: Gino Liao MD Acct: [id number] Unit: [id number] AGE: 30 Location: OR Re10/26/16 SEX: F Status: DEP [facility] SPEC: [id number] DOMINIK: 10/26/16-[address] [facility] [address]: Gino Liao MD REQ: [id number] RECD: 10/27/16-1009 STATUS: BALJEET ADKINS DR: Dano Kaminski MD _ SOURCE: FOOT,RIGHT SPDESC: ORDERED: Culture Stain COMMENTS: RIGHT FOOT Procedure Result Reported Site Wound/Misc Gram Stain Final 10/27/16- 1058 ML No Neutrophils Observed No Organisms Seen Wound/Misc Culture Final 10/29/16- 1043 ML Organism 1 NORMAL YOLY Quantity 1+ * ML - MAIN LAB ([facility]) . END OF REPORT * ML=Testing performed at Main Lab DEPARTMENT OF PATHOLOGY, [address] [place] [address] Oswaldo Cobos M.D. Director [facility] # [id number] 11 Betting Clerk: [id number] Chao Boo 12 If is still suspected, please repeat test after 48 to 72 hours. This test detects intact HCG only and is indicated for the early detection of . Procedures Date CPT Code Description Status 12/01/2017 46317 Short Arm Splint Application Completed 11/24/2017 79661 Short Arm Cast Application Completed 11/15/201762962 Removal Implant Deep Wire,Screw Nail,Kong Or Plate Completed 11/15/201760953 Removal Implant Deep Wire,Screw Nail,Kong Or Plate Completed 11/15/2017 67978 Arthroplasty Interposition Intercarpal Or Completed Carpometacarpal JTS 11/15/2017 82212 Arthroplasty Interposition Intercarpal Or Completed Carpometacarpal JTS 11/15/2017 87346 Tendon Transfer CMC/Hand W/O Free Graft Completed 11/15/2017 03861 Tendon Transfer CMC/Hand W/O Free Graft Completed 11/15/2017 32401 Capsulodesis Metacarpophalangeal Joint, Single Digit Completed 11/15/2017 55168 Capsulodesis Metacarpophalangeal Joint, Single Digit Completed 11/02/2017 70253 ECHO Transthoracic, Real-Time 2D With Doppler And Color Completed Flow 10/27/2017 79242 Diffusing Capacity Completed 10/27/2017 55238 Plethysmography Determination Lung Volumes & Per Airway Completed Resist 10/27/2017 09893 Pulmonary Stress Testing, Inc Measurement Heart Rate, Completed Oximetry 10/27/2017 34835 Pulmonary Function><Bronchodil Completed 10/11/2017 16799 Rad Shoulder Comp, Min. 2 Views Completed 10/11/2017 27098 Inject/Drain Joint/Bursa Major W/O US Completed 10/05/2017 96744 Rad Exam; Hand Comp Completed 09/02/2017 12487 Nerve Conduction 05-06 Studies Completed 08/17/2017 44705 Rad Exam; Hand Comp Completed 08/04/2017 37436 Polysomnography Sleep Staging 4+ Parameters Completed 07/20/2017 28345 Short Arm Cast Application Completed 07/13/2017 16275 Short Arm Cast Application Completed 07/05/2017 93815 Arthrodesis CMC JT Thumb W/ Autograft Completed 07/05/2017 09995 Arthrodesis CMC JT Thumb W/ Autograft Completed 05/18/2017 94129 Rad Exam; Hand Comp Completed 05/18/2017 44527 Inject/Drain Joint/Bursa Small W/O US Completed 12/09/2016 79981 Rad Exam; Foot Comp Completed 11/17/2016 72935 application of short leg splint Completed 11/16/2016 95326 Short Leg Cast Completed 11/04/2016 17417 Short Leg Cast Completed 10/26/2016 43613 Transfer Tendon Ant/Post Tibial Deep Completed 10/26/2016 77582 Transfer Tendon Ant/Post Tibial Deep Completed 10/26/2016 58155 Removal Implant Deep Wire,Screw Nail,Kong Or Plate Completed 10/06/2016 28202 Short Leg Cast Completed 09/25/2016 74137 Short Leg Cast Completed 09/21/2016 67631 Osteotomy Calcaneus Dwyers Or Chambers Type Procedure Completed 09/21/2016 02464 Osteotomy Calcaneus Dwyers Or Chambers Type Procedure Completed Encounters Type Date Location Provider CPT E/M Dx Office Visit 12/08/2017 Orthopedic Services Gino Liao, 72800 M76.821 9:15a Of Yard Supervisor AT [facility] M79.672 Office Visit 11/08/2017 8:00a [place] [address] R06.02 Services Of Yard Supervisor J45.909 G47.33 E66.01 Office Visit 10/14/2017 7:00a Pul[facility] [address] R06.02 Services Of Yard Supervisor G47.33 K21.9 E66.01 Z68.43 Office Visit 10/12/2017 8:00a [place] [address] M18.11 Yard Supervisor AT [place] Office Visit 10/11/2017 1:00p [place] [address] M75.42 [facility] Supervisor AT [place] M25.512 Office Visit 10/06/2017 10:00a Orthopedic Services Of Gino Liao 77785 M76.821 Yard Supervisor [facility] M18.11 Office Visit 10/05/2017 8:15a [place] [address] M18.11 Yard Supervisor AT [place] M79.641 Office Visit 08/26/2017 11:00a Pulmonology And Sleep Madhuri Couch 76554 G47.33 Services Of [facility] MICHEAL RN, 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- R53.83 E66.01 Z68.43 Office Visit 07/13/2017 8:00a Pul[place] [address] G47.9 Services Of Yard Supervisor G47.50 G25.81 E66.01 Z68.43 R35.1 R40.0 R12 Office Visit 06/15/2017 8:15a [place] [address] M18.0 [facility] AT [place] Office Visit 05/19/2017 3:15p [facility] Services Of Gino Liao 03657 M65.871 Yard Supervisor [facility] Office Visit 05/18/2017 9:00a [facility] [address] M18.11 [facility] Super[facility] AT [place] M79.641 Office Visit 04/28/2017 3:45p Orthopedic Services Of Gino Liao 27119 M76.821 Yard Supervisor [facility] Office Visit 04/07/2017 2:30p Orthopedic Services Of Gino Liao 21310 M76.821 [facility] M76.822 Office Visit 03/10/2017 2:15p [facility] Services Of Gino Liao, 80354 M76.821 [facility] Office Visit 09/02/2016 3:15p Orthopedic Services Of Gino Liao 41818 M76.821 [facility] Office Visit 08/26/2016 2:45p Orthopedic Services Of Gino Liao 98039 M76.821 [facility] M72.2 Office Visit 08/21/2016 2:30p [place] [address] Q66.89 Yard Supervisor AT [facility]72.2 Office Visit 10/14/2012 1:15p Orthopedic Services Of Gino Liao, 31882 755.67 Vaibhav Bear Plan of Care 12/29/2017 - Gino Narayan MDM18.11 Unil primary osteoarth of first carpometacarp joint, r handFollow up:Follow up: 6 tqbshY92.89 Encounter for other orthopedic aftercare
--- OUTSIDE RECORDS SUMMARY | 2018-02-17 22:04 | XMS REPORT ---
:1985 External Reference #:[id number] Author Organization [facility] Address [address] [place] [address] [place] [address] Phone [phone] Care Team Providers Name Role Phone Dano Kaminski MD Primary Care Physician Unavailable Payers Type Date Identification Numbers Payment Provider Subscriber Commercial Effective: Policy Number: Xander Santana 2012 [id number] Group Number: [id number] [address] PayID: [id number] [place] [address] Problems Date Description Provider Status Onset: 05/18/2017 Localized, primary osteoarthritis Gino Narayan MD Active of the hand Onset: 08/26/2017 Obstructive sleep apnea syndrome Madhuri Couch DNP, RN, Active P[employer]WER-BC Onset: 08/26/2017 Body mass index 40+ - severely Madhuri Couch DNP, RN, Active obese PLAST[employer] SEWER-BC Family History Date Family Member(s) Problem(s) Comments General Heart Disease General Cancer Father Hypercholesterolemia Mother No Current Problems Siblings 2 1 sister with Asthma Social History Type Date Description Comments Marital Status Lives With Family Occupation [employer] 08/26/17 Occupation Currently Working Cigarette Use Former [...] Suspension 50mcg/Act Use 1 Unknown Propionate /0000 [place] In - Each 08/20 Nostril qd Green [...] Sylvain Vital Signs Date Vital Result Comment 02/16/2018 Height 66 inches 5'6" Weight 332.00 lb Heart Rate 72 /min BP Systolic Sitting 116 mmHg BP Diastolic Sitting 68 mmHg Respiratory Rate 18 /min Pain Level 4 BMI (Body Mass Index) 53.6 kg/m2 02/15/2018 Height 66 inches 5'6" Weight 332.00 [...] [address]: Gino Narayan MD Acct: [id number] Unit: [id number] AGE: 32 Location: OR Re11/15/17 SEX: F Status: DEP [facility] SPEC: [id number] DOMINIK: 11/15/[address]: Gino Narayan MD REQ: [id number] RECD: 11/15/17 STATUS: SOUT _ ORDERED: Decal, LEVEL 1, LEVEL 3 THIS IS A CORRECTED REPORT 11/18/17310 Corrected Report FINAL DIAGNOSIS 1. Bone and [...] aggregate of montes pink irregular bone fragments. Track Service Worker sections, one cassette following decalcification. 2. The [...] 0941 END OF REPORT DEPARTMENT OF PATHOLOGY, [address] [place] [address] Oswaldo Cobos M.D. Director [facility] # [id number] 3 Gourmet Coffee Attendant: [id number] 4 Gourmet Coffee Attendant: [id number] 5 SEE RESULT BELOW Name: MARCELINAILAREJI Sargent : [address]: Gino Liao MD Acct: [id number] Unit: [id number] AGE: 30 Location: OR Re10/26/16 SEX: F Status: BREE SDC SPEC: [id number] DOMINIK: 10/26/16- [facility] DR: Gino Liao MD REQ: [id number] RECD: 10/27/16-1007 STATUS: SOUT _ ORDERED: Decal, [...] x 2.5 by up to 0.7 cm. Track Service Worker sections, one cassette following decalcification. Signed (signature on file) Ema Alas MD 1058 END OF REPORT * ML=Testing performed at Main Lab DEPARTMENT OF PATHOLOGY, [address] [place] [address] Oswaldo Cobos M.D. Director [facility] # [id number] 6 If is still suspected, please repeat test after 48 to 72 hours. This test detects intact HCG only and is indicated for the early detection of . 7 Gourmet Coffee Attendant: DANIEL MCNAIR 8 RIGHT FOOT 9 SEE RESULT BELOW Name: LORI SANTANA : [address]: Gino Liao MD Acct: [id number] Unit: [id number] AGE: 30 Location: OR Re10/26/16 SEX: F Status: DEP SDC SPEC: [id number] DOMINIK: 10/26/16-153 [facility] DR: Gino Liao MD REQ: [id number] RECD: 10/27/16 STATUS: BALJEET ADKINS DR: Dano Kaminski MD _ SOURCE: WOUND SPDESC: ORDERED: Anaerobic Cult Procedure Result Reported Site Anaerobic Culture Final 10/31/16- 08 ML Anaerobe Culture No Anaerobes Day 4 * ML - MAIN LAB ([facility]) . END OF REPORT * ML=Testing performed at Main Lab DEPARTMENT OF PATHOLOGY, [address] [place] [address] Oswaldo Cobos M.D. Director [facility] # [id number] 10 SEE RESULT BELOW Name: LORI SANTANA : [address]: Gino Liao MD Acct: [id number] Unit: [id number] AGE: 30 Location: OR Re10/26/16 SEX: F Status: BREE SHEETSC SPEC: [id number] DOMINIK: 10/26/16-1537 [facility] DR: Gino Liao MD REQ: [id number] RECD: 10/27/16-1008 STATUS: BALJEET ADKINS DR: Dano [...] at Main Lab DEPARTMENT OF PATHOLOGY, [address] [place] [address] Oswaldo Cobos M.D. Director [facility] # [id number] 11 Gourmet Coffee Attendant: PAGE Boo 12 If is still suspected, please repeat test after 48 to 72 hours. This test detects intact HCG only and is indicated for the early detection of . Procedures Date CPT Code Description Status 12/01/2017 40079 Short Arm Splint Application Completed 11/24/2017 93935 Short Arm Cast Application Completed 11/15/201794046 Removal Implant Deep Wire,Screw Nail,Kong Or Plate Completed 11/15/201729046 Removal Implant Deep Wire,Screw Nail,Kong Or Plate Completed 11/15/2017 48845 Arthroplasty Interposition Intercarpal Or Completed Carpometacarpal JTS 11/15/2017 28555 Arthroplasty Interposition Intercarpal Or Completed Carpometacarpal JTS 11/15/2017 64190 Tendon Transfer CMC/Hand W/O Free Graft Completed 11/15/2017 51068 Tendon Transfer CMC/Hand W/O Free Graft Completed 11/15/2017 95716 Capsulodesis Metacarpophalangeal Joint, Single Digit Completed 11/15/2017 20727 Capsulodesis Metacarpophalangeal Joint, Single Digit Completed 11/02/2017 06859 ECHO Transthoracic, Real-Time 2D With Doppler And Color Completed Flow 10/27/2017 23052 Diffusing Capacity Completed 10/27/2017 89336 Plethysmography Determination Lung Volumes & Per Airway Completed Resist 10/27/2017 82761 Pulmonary Stress Testing, Inc Measurement Heart Rate, Completed Oximetry 10/27/2017 67559 Pulmonary Function><Bronchodil Completed 10/11/2017 25825 Rad Shoulder Comp, Min. 2 Views Completed 10/11/2017 42055 Inject/Drain Joint/Bursa Major W/O US Completed 10/05/2017 88293 Rad Exam; Hand Comp Completed 09/02/2017 49365 Nerve Conduction 05-06 Studies Completed 08/17/2017 45057 Rad Exam; Hand Comp Completed 08/04/2017 04586 Polysomnography Sleep Staging 4+ Parameters Completed 07/20/2017 94320 Short Arm Cast Application Completed 07/13/2017 04287 Short Arm Cast Application Completed 07/05/2017 10099 Arthrodesis CMC JT Thumb W/ Autograft Completed 07/05/2017 08635 Arthrodesis CMC JT Thumb W/ Autograft Completed 05/18/2017 09478 Rad Exam; Hand Comp Completed 05/18/2017 18525 Inject/Drain Joint/Bursa Small W/O US Completed 12/09/2016 88148 Rad Exam; Foot Comp Completed 11/17/2016 84673 application of short leg splint Completed 11/16/2016 09209 Short Leg Cast Completed 11/04/2016 62883 Short Leg Cast Completed 10/26/2016 54778 Transfer Tendon Ant/Post Tibial Deep Completed 10/26/2016 94968 Transfer Tendon Ant/Post Tibial Deep Completed 10/26/2016 79086 Removal Implant Deep Wire,Screw Nail,Kong Or Plate Completed 10/06/2016 88068 Short Leg Cast Completed 09/25/2016 49053 Short Leg Cast Completed 09/21/2016 70154 Osteotomy Calcaneus Babs Or Diamante Type Procedure Completed 09/21/2016 15180 Osteotomy Calcaneus Babs Or Diamante Type Procedure Completed Encounters Type Date Location Provider CPT E/M Dx Office Visit 12/08/2017 Orthopedic Services Gino Liao 09950 M76.821 9:15a Of [facility] AT [facility] M79.672 Office Visit 11/08/2017 8:00a Pul[place] [address] R06.02 Services Of [facility] J45.909 G47.33 E66.01 Office Visit 10/14/2017 7:00a Pul[place] [address] R06.02 Services [facility] G47.33 K21.9 E66.01 Z68.43 Office Visit 10/12/2017 8:00a [place] [address] M18.11 [facility] AT [place] Office Visit 10/11/2017 1:00p [place] [address] M75.42 [facility] [place] M25.512 Office Visit 10/06/2017 10:00a Orthopedic Services Of Gino Liao [address] [facility] M18.11 Office Visit 10/05/2017 8:15a [place] [address] M18.11 [facility] AT [facility]79.641 Office Visit 08/26/2017 11:00a Pulmonology And Sleep Madhuri Couch, 53328 G47.33 [facility] MICHEAL, RN, PLASTIC SEWER-BC R53.83 E66.01 Z68.43 Office Visit 07/13/2017 8:00a Pul[facility] [address] G47.9 [facility] G47.50 G25.81 E66.01 Z68.43 R35.1 R40.0 R12 Office Visit 06/15/2017 8:15a [place] [address] M18.0 [facility] [place] Office Visit 05/19/2017 3:15p [facility] Services Of Gino Liao [address] [facility] Office Visit 05/18/2017 9:00a [facility] [address] M18.11 [facility] AT [place] [address].641 Office Visit 04/28/2017 3:45p [facility] Gino Liao 92485 M76.821 [facility] 04/07/2017 2:30p [facility] Of Gino Liao 11153 M76.821 [facility].822 Office Visit 03/10/2017 2:15p [facility] Gino Liao 34842 M76.821 [facility] 09/02/2016 3:15p [facility] Of Gino Liao 84951 M76.821 [facility] 08/26/2016 2:45p [facility] Of Gino Liao 53413 M76.821 [facility] M72.2 Office Visit 08/21/2016 2:30p [place] [address] Q66.89 [facility] [place] M72.2 Office Visit 10/14/2012 1:15p [facility] Services Of Gino Liao, 00399 755.67 Vaibhav Bear Plan of Care Future Appointment(s):03/16/2018 9:00 am - Gino Liao M.D. at [facility] AT Yjzpyxzw00/11/2018 - Gino Liao M.D.G57.92 Unspecified mononeuropathy of left lower limbG57.91 Unspecified mononeuropathy of right lower limb
--- NOTE | 2018-02-17 22:23 | ED ---
Abdominal Pain/Female - HPI Summary HPI Summary: 32 y/o female presents to the ED c/o severe epigastric pain radiating to the back between the shoulder blades, starting at 17:30 today. Pain waxes and wanes from 7 to a 10/10. Associated sx: fever, chills, vomiting, CP. Pt vomited once this morning, then repeatedly after the pain started. Pt had bypass surgery 2 weeks ago (Dr. Dawson). - History of Current Complaint Chief Complaint: EDAbdPain Stated Complaint: ABD PAIN/VOMITING/CHEST PAIN Time Seen by Provider: 02/17/18 22:04 Hx Obtained From: Patient Hx Last Menstrual Period: 09/14/17 Onset/Duration: Lasting Hours, Still Present Timing: Constant Severity Initially: Severe Severity Currently: Severe Pain Intensity: 7 Pain Scale Used: 0-10 Numeric Location: Epigastric Radiates: Yes Radiates to: Back Alleviating Factor(s): Nothing Associated Signs and Symptoms: Positive: Fever, Chest Pain, Vomiting Allergies/Adverse Reactions: Allergies Allergy/AdvReac Type Severity Reaction Status Date / Time amoxicillin Allergy Intermediate Hives Verified 02/17/18 21:53 pseudoephedrine Allergy Intermediate Hives Verified 02/17/18 21:53 [From Sudafed] Adhesive Tape Allergy Rash Verified 02/17/18 21:53 [Tegaderm Dressing] morphine AdvReac Severe Nausea And Verified 02/17/18 21:53 Vomiting chloraprep Allergy Severe Hives Uncoded 02/17/18 21:53 fiberglass cast material Allergy Severe Hives Uncoded 02/17/18 21:53 PMH/Surg Hx/FS Hx/Imm Hx Previously Healthy: No Endocrine/Hematology History: Reports: Hx Diabetes, Hx Thyroid Disease - HYPO, Hx Anemia - uses supplements Denies: Hx Bone Marrow Disease, Hx Sickle Cell Disease Cardiovascular History: Reports: Other Cardiovascular Problems/Disorders - HEART MURMER Denies: Hx Congestive Heart Failure, Hx Hypertension, Hx Pacemaker/ICD Respiratory History: Reports: Hx Asthma, Hx Sleep Apnea, Other Respiratory Problems/Disorders - PNEUMONIA 2-3 TIMES Denies: Hx Chronic Obstructive Pulmonary Disease (COPD) GI History: Reports: Hx Gastroesophageal Reflux Disease - controlled with meds, Hx Irritable Bowel - mild Denies: Hx Ulcer History: Reports: Hx Kidney Infection - 09/26 OK NOW, Other Problems/ Disorders - reports PCOS Denies: Hx Renal Disease Musculoskeletal History: Reports: Hx Arthritis - knees, neck, Hx Fibromyalgia, Hx Tendonitis - right foot, arms Comment Only: Other Musculoskeletal History - right thumb osteoarthritis Sensory History: Reports: Hx Contacts or Glasses - wears glasses Denies: Hx Cataracts, Hx Glaucoma, Hx Hearing Aid Opthamlomology History: Reports: Hx Contacts or Glasses - wears glasses Denies: Hx Cataracts, Hx Glaucoma Neurological History: Reports: Hx Migraine, Other Neuro Impairments/Disorders - shingles spring 2014 Psychiatric History: Reports: Hx Anxiety, Hx Depression - not currently Denies: Hx Panic Disorder - Cancer History Hx Chemotherapy: No - Surgical History Surgery Procedure, Year, and Place: APPENDECTOMY, OVARIAN CYST ,PILONIDAL CYSTECTOMY. right foot surgery 09/21/16. RIGHT FOOT/ANKLE SURGERY 10/26/16. RIGHT THUMB Hx Anesthesia Reactions: No - Immunization History Date of Tetanus Vaccine: 2009 Date of Influenza Vaccine: unknown Infectious Disease History: No Infectious Disease History: Reports: Hx Shingles Denies: Hx Clostridium Difficile, Hx Hepatitis, Hx Human Immunodeficiency Virus (HIV), Hx of Known/Suspected MRSA, Hx Tuberculosis, Hx Known/Suspected VRE , Hx Known/Suspected VRSA, History Other Infectious Disease, Traveled Outside the [place] in Last 30 Days - Family History Known Family History: Positive: Cardiac Disease, Hypertension Negative: Diabetes - Social History Alcohol Use: None Substance Use Type: Reports: None Hx Tobacco Use: Yes Smoking Status (MU): Former Smoker Type: Cigarettes Amount Used/How Often: 1 ppd for 4 years Length of Time of Smoking/Using Tobacco: 4 YRS Have You Smoked in the Last Year: No Review of Systems Positive: Fever, Chills Negative: Erythema Negative: Sore Throat Positive: Chest Pain Negative: Shortness Of Breath, Cough Positive: Abdominal Pain, Vomiting, Nausea Negative: dysuria, hematuria Negative: Myalgia, Edema Negative: Rash Neurological: Other - no dizziness All Other Systems Reviewed And Are Negative: Yes Physical Exam - Summary Physical Exam Summary: Constitutional: Well-developed, Well-nourished, Alert. (-) Distressed Skin: Warm, Dry HENT: Normocephalic; Atraumatic Eyes: Conjunctiva normal Neck: Musculoskeletal ROM normal neck. (-) JVD, (-) Stridor, (-) Tracheal deviation Cardio: Rhythm regular, rate normal, Heart sounds normal; Intact distal pulses; The pedal pulses are 2+ and symmetric. Radial pulses are 2+ and symmetric. (-) Murmur Pulmonary/Chest wall: Effort normal. (-) Respiratory distress, (-) Wheezes, (-) Rales Abd: Soft, (+) epigastric tenderness, (-) Distension, (-) Guarding, (-) Rebound. Exam limited by exam being performed in waiting room and obesity. Musculoskeletal: (-) Edema Lymph: (-) Cervical adenopathy Neuro: Alert, Oriented x3 Psych: Mood and affect Normal Triage Information Reviewed: Yes Vital Signs On Initial Exam: Initial Vitals Temp Pulse Resp BP Pulse Ox 98.5 F 92 18 149/96 96 02/17/18 21:53 02/17/18 21:53 02/17/18 21:53 02/17/18 21:53 02/17/18 21:53 Vital Signs Reviewed: Yes Diagnostics - Vital Signs Vital Signs Temp Pulse Resp BP Pulse Ox 02/17/18 21:53 98.5 F 92 18 149/96 96 - Laboratory Lab Statement: Any lab studies that have been ordered have been reviewed, and results considered in the medical decision making process. Abdominal Pain Fem Course/Dx - Course Course Of Treatment: Spoke with Dr. Carmichael who recommends admit. Dr. Carmichael will be notified for significant abnormaltiies or findings on CT. Plan for endoscopy tomorrow and surgical consultation. - Diagnoses Provider Diagnoses: Epigastric pain - Provider Notifications Discussed Care Of Patient With: Kulwinder Carmichael Time Discussed With Above Provider: 22:37 Instructed by Provider To: Admit As Inpatient Discharge - Discharge Plan Condition: Stable Disposition: ADMITTED TO [facility] Referrals: Dano Kaminski MD [Primary Care Provider] -
[2018-02-17] MEDS ORDERED: Thiamine IV 100 MG, Folic Acid IV* 1 MG, Multiple Vitamin IV ADULT* 10 ML in D5NS 0.9% ... IV ONE (22:25)
[2018-02-17] MEDS ORDERED: Albuterol 2.5 MG/3 ML NEB.SOL* (0.083%) INH PRN (22:32)
[2018-02-17] MEDS ORDERED: Ondansetron INJ* 2 MG/ML VIAL IV PRN (22:37)
[2018-02-17 22:53] LABS: ABS Basophils 0.1 10^3/ul (0-0.2); ABS Eosinophils 0.3 10^3/ul (0-0.6); ABS Lymphocytes 2.8 10^3/ul (1.0-4.8); ABS Monocytes 0.7 10^3/ul (0-0.8); ABS Neutrophils 6.8 10^3/ul (1.5-7.7); ABS Nucleated RBC 0 10^3/ul; Eosinophil % 2.4 % (0-6); Hematocrit 33 % (35-47); Hemoglobin 10.4 g/dl (12.0-16.0); Lymphocyte % 26.1 % (25-47); Mean Corpuscular HGB Conc 32 g/dl (31-36); Mean Corpuscular Hemoglobin 23 pg (27-31); Mean Corpuscular Volume 73 fL (80-97); Mean Platelet Volume 7.2 um3 (7.4-10.4); Nucleated Red Blood Cells % 0.1; Platelet Count 481 10^3/ul (150-450); Red Blood Count 4.47 10^6/ul (4.00-5.40); Red Cell Distribution Width 18 % (10.5-15); White Blood Count 10.6 10^3/ul (3.5-10.8)
[2018-02-17 23:11] LABS: EGFR Non-African American 78.7 (>60)
[2018-02-17] MEDS ORDERED: Iodixanol* (CONTRAST) 320 MG/ML 100 ML SDV IV ONE (23:39)
[2018-02-17] MEDS: HYDROmorphone INJ* 0.5 MG/0.5 ML SYRINGE IV PRN (23:55)
[2018-02-18] MEDS: HYDROmorphone INJ* 0.5 MG/0.5 ML SYRINGE IV PRN ×3 (01:14→07:23)
[2018-02-18] MEDS: Heparin VIAL(*) 5000 UNITS/ML VIAL (FIVE THOUSAND) SUBCUT SCH ×3 (05:47→22:00)
[2018-02-18] MEDS: Pantoprazole IV* 40 MG IV SCH (07:16)
[2018-02-18] MEDS ORDERED: Metoclopramide IV* 5 MG/ML 2 ML VIAL IV PRN (08:14)
--- NOTE | 2018-02-18 08:31 | RAD ---
CLINICAL HISTORY: VOMIT/EPIGASTRIC PAIN, 2 WEEKS POST OP BARIATRIC COMPARISON: September 26, 2017 TECHNIQUE: Multiple contiguous axial CT scans were obtained of the abdomen and pelvis after the administration of intravenous contrast. Coronal and sagittal multiplanar reformations are submitted for review. Oral contrast was administered. Delayed images were obtained through the abdomen. FINDINGS: LUNG BASES: The lung bases are clear. LIVER: The liver is diffusely low in attenuation compared to the spleen. There is linear low attenuation along the left lobe of liver. This measures 1.1 x 2.5 x 2.2 cm. There is no active arterial extravasation. The appearance is suggestive of a grade 2 liver laceration. BILE DUCTS: There is no intrahepatic or extrahepatic biliary dilatation. GALLBLADDER: The gallbladder is normal, without pericholecystic inflammatory change. PANCREAS: The pancreas is normal, without mass or ductal dilatation. SPLEEN: Normal in size and appearance. UPPER GI TRACT: Evaluation of the gastrointestinal tract is limited by incomplete gastric distention. There is post surgical change to the projected tract. SMALL BOWEL AND MESENTERY: The small bowel is normal in contour, course, and caliber. There is no obstruction or dilatation. COLON: The colon is normal in contour, course, caliber. There is no pericolonic inflammatory change. ADRENALS: Normal bilaterally. KIDNEYS: The kidneys are normal in shape, size, contour, and axis. There is no hydronephrosis or nephrolithiasis. BLADDER: The bladder is smooth in contour. PELVIC ORGANS: The uterus and adnexa are grossly normal for technique. AORTA: The aorta is normal. IVC: Unremarkable LYMPH NODES: There is no lymphadenopathy by size criteria. ABDOMINAL WALL: There is no evidence for abdominal wall hernia. BONES AND SOFT TISSUES: Mild degenerative changes are noted. OTHER: None IMPRESSION: 1. THERE IS LINEAR LOW-ATTENUATION WITHIN THE LEFT LOBE OF LIVER SUGGESTIVE OF A LIVER LACERATION. THERE IS NO ACTIVE ARTERIAL EXTRAVASATION OR PERIHEPATIC HEMATOMA. THE DIFFERENTIAL ALSO INCLUDES INFARCTION FROM SURGICAL RETRACTION OR EPIDURAL ABSCESS. 2. POSTSURGICAL CHANGE TO THE UPPER GI TRACT.. PRELIMINARY FINDINGS WERE DISCUSSED WITH DR. WINTERS AT APPROXIMATELY 8:28 AM ON FEBRUARY 18, 2018.
--- NOTE | 2018-02-18 10:53 | PN ---
Progress Note - Progress Note Date of Service: 02/18/18 SOAP: Subjective: Pt seen and examined again. Some N/V pos. BM Objective: Af vss abdo: soft/ obese/ tender at epigastrum, no rebound Assessment: POD16 RYGB, now with concern for abscess vs liver lac ([id number] infection) vs internal hernia Plan: bariatric clears NPO at MN abx, ID consult labs in am possible dx lap if no improvement
[2018-02-18] MEDS ORDERED: Levofloxacin 750 MG IVPREMIX(* 750 MG/150 ML BAG IVPB SCH (11:00)
--- NOTE | 2018-02-18 11:37 | HP ---
CC: [facility]; Dr. Dano Kaminski HISTORY AND PHYSICAL: DATE OF ADMISSION: 02/18/18 HISTORY OF PRESENT ILLNESS: Ms. Santana is a 32-year-old female, who is postop day 16 from a laparosco pic Sanaz-en-Y gastric bypass. Postoperative course was complicated with bilateral foot pain likely s econdary to prolonged operative course. The patient was discharged home on postoperative day 4. She was followed up at [facility]. She did go home with the BEVERLY d rain that was removed approximately a week ago. She has been advancing her diet in the standard fas ion. She has been taking Neurontin for the bilateral foot pain and burning. The patient complained of nausea and vomiting yesterday. This vomiting was mostly liquid and mucus. It was accompanied with epigastric pain that did radiate to her back. She discussed this with a fri end, who thought the patient should be evaluated and the patient presented to the emergency room. Nereida crump did have additional course of nausea and vomiting afterwards and was evaluated by the emergency maria teresa pitts. The patient underwent labs and a CAT scan. These images and numbers were reviewed. The patient does describe having chills during the time of vomiting yesterday. She is comfortable no w but does have pain in the epigastrium. She has been receiving Dilaudid for pain. PAST MEDICAL HISTORY: Gastroesophageal reflux disease, impaired fasting glycemia, anxiety, asthma, p olycystic ovary, and hypothyroid. PAST SURGICAL HISTORY: Appendectomy, pilonidal cystectomy, thumb surgery, foot surgery, and gastric bypass. SOCIAL HISTORY: She is currently not working. She lives with her and children. She is a no nsmoker. REVIEW OF SYSTEMS: The patient denies any fevers. She does have chills as described in the HPI. Nereida crump has been having bowel movements regularly. These are soft and her most recent bowel movement was y morning and it was pale in color. She denies any shortness of breath. She has had intermit tent chest pain during the course of these vomiting episodes. No dysuria. She has been ambulating a gain with the pain at the feet, but according to the patient it has been improving. PHYSICAL EXAMINATION GENERAL: Alert and oriented x3, in no apparent distress. VITAL SIGNS: Temperature 97.8, blood pressure 114/65, heart rate 84, respirations 16, O2 sat of 99%. HEENT: Normocephalic, atraumatic. Sclerae anicteric. Mucous membranes are moist. NECK: No lymphadenopathy. LUNGS: Clear bilaterally. ABDOMEN: Soft, obese. Tender in the epigastrium without rebound. Well-healed surgical incisions. No masses or hernias noted. EXTREMITIES: Within normal limits. No calf tenderness. No pitting edema. RECTAL: Not performed. DIAGNOSTIC STUDIES/LAB DATA: Labs show a white count of 10.6 without left shift; H and H 10.4/33, w hich is an increase from discharge numbers; platelet count is elevated at 481. Chemistry panel is wi thin normal limits with the exception of elevated CRP of 38. BUN/creatinine ratio of 18. Glucose of 99. She underwent a CAT scan of the abdomen and pelvis. Images as well as report were reviewed and discu ssed with the radiologist. The patient has a finding in the left lobe of the liver suggestive of lac eration. It does show some enhancement and I am concerned about the potential abscess at this site. There was no free air, no free fluid, no ascites, no pleural effusions. The patient had contrast lukasz th IV and oral and the oral contrast advanced to the distal small bowel. IMPRESSION AND PLAN: Two weeks status post gastric bypass in a patient who now has nausea, vomiting, and abdominal pain with a history of gastroesophageal reflux disease and now with findings of possib le liver laceration with concern of secondary infection or the possibility of abscess and leak at the gastrojejunostomy. I feel leak at the gastrojejunostomy is unlikely given that there is no air or c ontrast, no fluid around the area of the anastomosis but this remains a concern. The retraction of t he liver during the procedure could be suggestive of blunt injury to the liver that is manifesting wi th this radiologic finding and this may or may not be causing her the symptoms. We will admit the aubrie sorenson with IV fluids and antibiotics, Infectious Disease consult to see how she does over the short t erm with consideration of taking her to the operating room for a laparoscopy and possible feeding gas trostomy. I discussed this with her and her and we will follow her closely. She will remain n.p.o. at this moment and she will be given medication for pain control as well as proton pump inhib itor and subcutaneous heparin. [id number]/[facility] #: [id number]
[2018-02-18] MEDS ORDERED: metroNIDAZOLE IV 500 MG/100ML* 500 MG/100 ML BAG IVPB SCH (12:00)
[2018-02-18] MEDS: metroNIDAZOLE IV 500 MG/100ML* 500 MG/100 ML BAG IVPB SCH ×2 (14:12→20:00)
[2018-02-18] MEDS: Gabapentin CAP(*) 100 MG PO SCH ×2 (16:05→21:59)
--- NOTE | 2018-02-18 19:32 | CONS ---
CONSULTATION REPORT: DATE OF CONSULT: 02/18/18 REQUESTING PHYSICIAN: Dr. Dawson. CONSULTING SERVICE: Infectious Disease. REASON FOR CONSULT: Chills, elevated C-reactive protein postoperatively. IMPRESSION: 1. Status post laparoscopic Sanaz-en-Y gastric bypass, 02/02/18. Now with epigastric pain. Initially vomiting with C-reactive protein and thrombocytosis. A CT scan shows what looks like a liver laceration and food collection within it. Given the time course and the more recent onset of symptoms, it seems more likely that she may have had an initial hematoma developed, which has been complicated by secondary infection. However, hematoma on its own can also cause an inflammatory response. 2. Morbid obesity. 3. AMOXICILLIN allergy caused hives. RECOMMENDATIONS: We agree with Levaquin 750 mg daily, Flagyl 500 mg every 8 hours. Follow her C-reactive protein and her symptoms here. If improving with antibiotics alone, we can plan on 3 to 4 weeks course of antibiotics for presumed secondary liver infection. HISTORY OF PRESENT ILLNESS: This is a 32-year-old woman who had a laparoscopic gastric bypass on 02/03/18. She initially did quite well and then 2 days ago developed epigastric pain that became severe. She had some vomiting, some chills, fevers, occasional diffuse body aches. She came to the ER on 02/17/18; she had a CT scan with findings as above. Her initial C-reactive protein was 38. White count 10, platelets 41. Her abdominal pain had led off overnight and it has been little bit less severe this morning. Has not vomited today. PAST MEDICAL HISTORY: 1. Morbid obesity, status post laparoscopic Sanaz-en-Y gastric bypass, January 2018. 2. Gastroesophageal reflux disease. 3. Anxiety. 4. Asthma. 5. Polycystic ovarian syndrome. 6. Hypothyroidism. 7. Status post appendectomy. 8. Status post pilonidal cystectomy. 9. Status post right thumb fusion. 10. Status post right ankle surgery. MEDICATIONS: 1. Heparin subcutaneous injection. 2. Dilaudid. 3. Levaquin. 4. Flagyl. 5. Pantoprazole. 6. Zofran as needed. ALLERGIES: AMOXICILLIN caused hives, PSEUDOEPHEDRINE, MORPHINE, CHLORAPREP, ADHESIVE TAPE. FAMILY HISTORY: No recurrent infection. SOCIAL HISTORY: She lives [place] with her and kids. No travel. No injection drugs. REVIEW OF SYSTEMS: All negative to 12-point review of systems, except as noted above in the history of present illness. PHYSICAL EXAM: Vital Signs: Temperature 36.6, heart rate 70, respiratory rate 17, blood pressure 110/52, oxygen saturation 100% on room air. T-max 37. General: She he is awake, not in distress. Neurologic: She is oriented x3. Follows all commands. HEENT: There is no conjunctival hemorrhage. Oropharynx without thrush. Neck: Supple without mass. Heart is regular rate and rhythm without murmurs, rubs, or gallops. Lungs are clear to auscultation bilaterally. Abdomen: Soft. Mild epigastric tenderness. There is no rebound. Her laparoscopy scars are well healed. Skin: There is no rash or splinter hemorrhages. Musculoskeletal: There is no spine tenderness to palpation or joint synovitis. LABORATORY DATA: White blood cell count 10, hemoglobin 10, platelets 41, MCV 73. Creatinine 0.8. CRP 38. Please see impression and recommendations as outlined above. Thanks for asking me to see Ms. Santana in consultation. [id number]/[facility] #: [id number] [facility]ITAL[facility]
[2018-02-19] MEDS: metroNIDAZOLE IV 500 MG/100ML* 500 MG/100 ML BAG IVPB SCH ×2 (01:38→08:12)
[2018-02-19 05:34] LABS: INR 1.14 (0.77-1.02)
[2018-02-19 05:36] LABS: ABS Basophils 0 10^3/ul (0-0.2); ABS Eosinophils 0.2 10^3/ul (0-0.6); ABS Lymphocytes 1.9 10^3/ul (1.0-4.8); ABS Monocytes 0.4 10^3/ul (0-0.8); ABS Neutrophils 3.6 10^3/ul (1.5-7.7); ABS Nucleated RBC 0 10^3/ul; Eosinophil % 2.6 % (0-6); Hematocrit 31 % (35-47); Hemoglobin 9.9 g/dl (12.0-16.0); Lymphocyte % 31.7 % (25-47); Mean Corpuscular HGB Conc 32 g/dl (31-36); Mean Corpuscular Hemoglobin 23 pg (27-31); Mean Corpuscular Volume 73 fL (80-97); Mean Platelet Volume 7.4 um3 (7.4-10.4); Nucleated Red Blood Cells % 0; Platelet Count 406 10^3/ul (150-450); Red Blood Count 4.24 10^6/ul (4.00-5.40); Red Cell Distribution Width 18 % (10.5-15); White Blood Count 6.2 10^3/ul (3.5-10.8)
[2018-02-19 05:46] LABS: EGFR Non-African American 95.8 (>60)
[2018-02-19] MEDS: Heparin VIAL(*) 5000 UNITS/ML VIAL (FIVE THOUSAND) SUBCUT SCH (06:29)
[2018-02-19] MEDS: Gabapentin CAP(*) 100 MG PO SCH (07:55)
[2018-02-19 08:07] VITALS: BP 139/65
[2018-02-19] MEDS: Pantoprazole IV* 40 MG IV SCH (08:10)
--- NOTE | 2018-02-19 09:39 | RAD ---
INDICATION: Abdominal pain, nausea and vomiting 2 1/2 weeks status post the reactive surgery COMPARISON: None TECHNIQUE: Supine and upright views of the abdomen were obtained. FINDINGS: The small bowel and colon appear nondistended. No free intraperitoneal air is seen. No grossly abnormal or pathologic appearing calcifications are noted. Visualized bones are within normal limits for the patient's age. IMPRESSION: Normal abdominal radiograph.
--- NOTE | 2018-02-19 12:37 | DS ---
CC: [facility]; Dr. Dano Kaminski * DISCHARGE SUMMARY: DATE OF ADMISSION: DATE OF DISCHARGE: 02/19/18 HOSPITAL COURSE: Ms. Santana is a 32-year-old female just over two weeks status post Sanaz-en-Y gastric bypass who presented to the emergency room with nausea, vomiting and upper abdominal discomfort. Workup included CAT scan and labs. I evaluated her yesterday and she was admitted to my service. She was given pain medication and antinausea medication. CAT scan was consistent with what appeared to be a liver laceration. My concern was that it could possibly be secondarily infected. Infectious Disease was consulted and the patient was started on antibiotics. She was seen throughout her first hospital day and showed some improvement, was started on liquid diet and this was held at midnight for concern of need to go to the operating room on hospital day 2; however, on examination, the patient was doing well and there was no worsening of her condition and I felt confident discharging patient with the plan for close followup. She will go home on oral antibiotics. She will follow up with Dr. Perez as well as myself. On day of discharge, the patient was evaluated. She is alert and oriented x3 in no apparent distress. Vital signs are stable. Urine output was good. The patient had a dark stool earlier in the day that was recorded. Abdomen was soft , nondistended. Minimal tenderness in the epigastrium without rebound. On extremities, she had no calf tenderness, she continued to have discomfort in her bilateral feet. DIAGNOSIS: Status post Sanaz-en-Y gastric bypass with nausea, vomiting and abdominal pain, etiology unclear, that has improved with concern for possibility of a liver finding that may be causing pain. [id number]/[facility] #: [id number] [facility]
== END 2018-02-19 11:45 | disposition home or self-care (01) ==
LOC: ED 21:47 → SSU 22:35
PROVIDERS: ADMIT Surgery; ATTEND Surgery
DX: R10.13 Epigastric pain (principal); R50.9 Fever, unspecified; R07.9 Chest pain, unspecified; R11.10 Vomiting, unspecified; Z88.0 Allergy status to penicillin; E11.9 Type 2 diabetes mellitus without complications; Z87.891 Personal history of nicotine dependence; E28.2 Polycystic ovarian syndrome; E03.9 Hypothyroidism, unspecified; Z90.89 Acquired absence of other organs; E66.01 Morbid (severe) obesity due to excess calories
CPT/HCPCS: 36415; 74019; 74177; 80053; 83605; 83690; 84425; 85025; 85610; 86140; 99283; A9270-GY; G0378; J1170; J1644; J2765; J3411; J3490; Q9967

== ENCOUNTER 2019-04-15 09:06 | Emergency (ER) | payer OTHER ==
[2019-04-15 10:03] VITALS: BP 111/75
--- NOTE | 2019-04-15 10:53 | UC ---
Complaint Female HPI - HPI Summary HPI Summary: per direct support professional: "c/o urinary urgency and frequency for the past 2 days. also c/o lower abdomianl pain and pressure. Denies fever but states feeling achy all over. " -she has had UTIs before and bladder infectiosn and sx feel "100%" the same. states that she doesn't have feeling from her waist down since her bariatric surgery and concerned that infection is progressed bc she doesnt have symptoms. -feels achy. no n/v/fevers/ no hematuria -states she can take cephalospirons without any probelms -cannot take amox, but can take augmentin - History Of Current Complaint Chief Complaint: UCGU Stated Complaint: URINARY Time Seen by Provider: 04/15/19 10:11 Hx Last Menstrual Period: 03/22/19 Pain Intensity: 7 - Allergies/Home Medications Allergies/Adverse Reactions: Allergies Allergy/AdvReac Type Severity Reaction Status Date / Time amoxicillin Allergy Intermediate Hives Verified 04/15/19 10:03 pseudoephedrine Allergy Intermediate Hives Verified 04/15/19 10:03 [From Sudafed] Adhesive Tape Allergy Rash Verified 04/15/19 10:03 [Tegaderm Dressing] morphine AdvReac Severe Nausea And Verified 04/15/19 10:03 Vomiting chloraprep Allergy Severe Hives Uncoded 04/15/19 10:03 fiberglass cast material Allergy Severe Hives Uncoded 04/15/19 10:03 PMH/Surg Hx/FS Hx/Imm Hx Previously Healthy: Yes - Surgical History Surgical History: Yes Surgery Procedure, Year, and Place: APPENDECTOMY,. OVARIAN CYST ,. PILONIDAL CYSTECTOMY;. RIGHT FOOT 09/21/16;. RIGHT FOOT/ANKLE SURGERY 10/26/16;. RIGHT THUMB X2 JUN 2017, NOVEMBER 2017;. GASTRIC BYPASS FEBRUARY 02 2018;. ENDOSCOPY - NO POLYPS; - Family History Known Family History: Positive: Cardiac Disease, Hypertension Negative: Diabetes - Social History Alcohol Use: None Substance Use Type: None Smoking Status (MU): Former Smoker Type: Cigarettes Amount Used/How Often: 1 ppd for 4 years Length of Time of Smoking/Using Tobacco: 4 YRS Have You Smoked in the Last Year: No When Did the Patient Quit Smoking/Using Tobacco: 2008 - Immunization History Most Recent Influenza Vaccination: not yet Most Recent Tetanus Shot: WITHIN 10 YEARS Most Recent Pneumonia Vaccination: never Review of Systems All Other Systems Reviewed And Are Negative: Yes Constitutional: Positive: Fatigue Skin: Negative: Negative, Rash Eyes: Positive: Negative ENT: Positive: Negative Respiratory: Positive: Negative Cardiovascular: Positive: Negative Gastrointestinal: Positive: Abdominal Pain Genitourinary: Positive: Urgency - several episodes of urgency w/o urine production this AM. has bladder incontinence Motor: Positive: Negative Neurovascular: Positive: Negative Musculoskeletal: Positive: Negative Neurological: Positive: Negative Psychological: Positive: Negative Is Patient Immunocompromised?: No Physical Exam Triage Information Reviewed: Yes Appearance: Well-Appearing, No Pain Distress, Well-Nourished Vital Signs: Initial Vital Signs Temp 98.8 F 04/15/19 09:54 Pulse 84 04/15/19 09:54 Resp 16 04/15/19 09:54 BP 111/75 04/15/19 09:54 Pulse Ox 98 04/15/19 09:54 Vital Signs Reviewed: Yes Eye Exam: Normal ENT Exam: Normal ENT: Positive: Pharynx normal Neck exam: Normal Neck: Positive: Supple, Nontender, No Lymphadenopathy Respiratory Exam: Normal Respiratory: Positive: Chest non-tender, Lungs clear, Normal breath sounds, No respiratory distress, No accessory muscle use. Negative: Crackles, Rhonchi, Stridor, Wheezing Cardiovascular Exam: Normal Cardiovascular: Positive: RRR Abdominal Exam: Normal Abdomen Description: Positive: Nontender, Soft. Negative: CVA Tenderness (R), CVA Tenderness (L), Distended, Guarding, McBurney's Point Tenderness, Peritoneal Signs, Pulsatile Mass, Splenomegaly Bowel Sounds: Positive: Present Musculoskeletal Exam: Normal Neurological Exam: Normal Psychological Exam: Normal Skin Exam: Normal Complaint Female Dx - Differential Dx/Diagnosis Differential Diagnosis/HQI/PQRI: Ureteral Stone, Urinary Tract Infection Provider Diagnosis: Urinary frequency Discharge ED - Sign-Out/Discharge Documenting (check all that apply): Patient Departure All imaging exams completed and their final reports reviewed: No Studies - Discharge Plan Condition: Stable Disposition: HOME Prescriptions: Cephalexin CAP* [Keflex CAP*] 500 mg PO TID #21 cap Patient Education Materials: Urinary Urgency and Frequency (DC) Referrals: Ilana Zhao NP [Primary Care Provider] - 1 Week Additional Instructions: -It is recommended that you take a priobiotic daily while you are on antibiotics. A few common brands that you can buy over the counter are colon health, align and florastor. These can help prevent a colon infection called c diff that can be associated with antibiotic use. -Please go to the ER if your symptoms increase or persist, develop fevers. weakness, chills. -We are sending the urine out for a culture. If the culture is negative, I recommend that the antibiotic is stopped. Please call us in 2 days for the results. - Billing Disposition and Condition Condition: STABLE Disposition: Home
== END 2019-04-15 11:20 | disposition home or self-care (01) ==
LOC: UCCORT 09:06
DX: R35.0 Frequency of micturition (principal); Z88.0 Allergy status to penicillin; Z87.890 Personal history of sex reassignment; Z87.891 Personal history of nicotine dependence
CPT/HCPCS: 81003; 87086; 99212; G0463

== ENCOUNTER 2019-09-11 07:01 | Emergency (ER) | payer OTHER ==
--- OUTSIDE RECORDS SUMMARY | 2019-09-11 07:18 | XMS REPORT | Continuity of Care Document ---
:1985 External Reference #:[id number] Author Name Elba Valenzuela FNP (transmitted by agent of provider Leeann Mckenzie) Address [address] [place] [id number] Care Team Providers Name Role Phone Ilana Zhao, PNP-BC, DENTAL TECHNICIAN APPRENTICE, Ibclc Care Team Information Director Of Maternity Services [phone] Family Oswald Crespo M.D. - Urology Care Team Information Director Of Maternity Services [phone] Gino Liao M.D. 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 Onset: 10/21/2018 Mixed urinary incontinence Oswald Crespo M.D. Onset: 10/21/2018 Social History Type Date Description Comments Sex Unknown ETOH Use Denies alcohol use Tobacco Use Start: Unknown End: Patient is a former quit 10 yrs ago Unknown smoker Recreational Drug Use Denies Drug Use Smoking Status Reviewed: 08/14/19 Patient is a former quit 10 yrs ago smoker Allergies, Adverse Reactions, Alerts Active Allergies Reaction Severity Comments Date Amoxicillin hives 05/24/2018 Sudafed hives 05/24/2018 Morphine very ill 05/24/2018 Tegaderm hives 05/24/2018 Chloroprep hives 05/24/2018 Medications Active Medications SIG Qnty Indications Ordering Date Provider Nortriptyline HCL take one capsule 90caps G43.909 Ilana Zhao, 2019 by mouth every day PNP-BC, DENTAL TECHNICIAN APPRENTICE, 25mg Capsules at bedtime Ibclc Sumatriptan 1 tab at onset and 14tabs G43.909 Ilana Zhao, 08/14/2019 Succinate if no improvement PNP-BC, DENTAL TECHNICIAN APPRENTICE, 50mg may repeat in 2 Ibclc Tablets hours Naproxen 1 by mouth twice a 60tabs G43.909 Ilana Zhao, 08/14/2019 500mg day with food as PNP-BC, DENTAL TECHNICIAN APPRENTICE, Tablets needed Ibclc Proair HFA 2 puff every 4-6 8.5units J20.9 Devon Murray MD 07/10/2019 hours as needed 108(90Base) mcg/Act Aerosol Ranitidine HCL Take 1 Tablet By 60tabs Ilana Zhao, 07/04/2019 150mg Mouth Twice Daily PNP-BC, DENTAL TECHNICIAN APPRENTICE, Tablets as Needed Ibclc Baclofen Take 1 Tablet By 90tabs Ilana Zhao, 07/04/2019 10mg Tablets Mouth Three Times PNP-BC, DENTAL TECHNICIAN APPRENTICE, Daily Ibclc Hydroxyzine HCL take 2-4 tablets 120tabs F41.9 Ilana Zhao, 04/28/2019 25mg by mouth at PNP-BC, DENTAL TECHNICIAN APPRENTICE, Tablets bedtime. *50mg Ibclc tabs on backorder* TENS Therapy Pain as directed 1units M54.2 Ilana Zhao, 04/26/2019 Relief PNP-BC, DENTAL TECHNICIAN APPRENTICE, Device Ibclc Ketorolac Take 1 Tablet By 20tabs M54.2 Ilana Zhao, 04/26/2019 Tromethamine Mouth Every 4 To 6 PNP-BC, DENTAL TECHNICIAN APPRENTICE, 10mg Hours as Needed Ibclc Tablets For Pain Onetouch Ultra 2 to check glucose 1units E16.2 Ilana Zhao, 03/07/2019 qd PNP-BC, DENTAL TECHNICIAN APPRENTICE, w/Device Kit Ibclc Onetouch Ultra Blue test blood sugar 100units E16.2 Ilana Zhao, 2018 once a day PNP-BC, DENTAL TECHNICIAN APPRENTICE, Strips Ibclc Onetouch Ultrasoft 1 a day to check 100units E16.2 Ilana Zhao, 2018 Lancets sugar PNP-BC, DENTAL TECHNICIAN APPRENTICE, Misc Ibclc Oxybutynin Chloride 1 by mouth every 90tabs Ilana Zhao, 03/07/2019 ER day EMILY-CHRISTOPH, DENTAL TECHNICIAN APPRENTICE, 5mg Tablets ER Ibclc 24HR Pantoprazole Sodium 1 by mouth bid 60tabs Ilana Zhao, 03/06/2019 PNP-CHRISTOPH, DENTAL TECHNICIAN APPRENTICE, 40mg Tablets DR Deepika Gabapentin take one capsule 90caps Ilana Zhao, 01/09/2019 400mg by mouth tid CAMILA BATRESP, Capsules Ibандрей Trospium Chloride Take 1 Tablet By 60tabs Ilana Zhao, 11/11/2018 Mouth Twice Daily EMILY-CHRISTOPH, DENTAL TECHNICIAN APPRENTICE, 20mg Tablets Ibclc Montelukast Sodium TK 1 T PO qd Unknown 10mg Tablets Opurity two capsules po Unknown Capsules once daily Biotin Four capsules po Unknown 10,000Iu everyday Capsule Ferrous Sulfate one tab po daily Unknown 27mg Tablets mm Biotin/Keratin Unknown Capsules Collagen Ultra Unknown Capsules Tramadol HCL TK 1 T PO tid PRF Unknown 50mg Pain. MDD 3 TS Tablets Tizanidine HCL 1 by mouth three Unknown 4mg times a day as Capsules needed mdd 3 History Medications Levaquin 1 tab daily for 5tabs J20.9 Devon Murray MD 07/10/2019 - 750mg 5 days 08/14/2019 Tablets Tessalon Perles 1 tab by mouth 60caps J20.9 Devon Murray MD 07/10/2019 - 100mg three times a 08/14/2019 Capsules day as needed Ranitidine 150 1 by mouth twice 60tabs Ilana Zhao, 03/06/2019 - Maximum Strength a day as needed JOHN BATRES, 07/04/2019 Ibclc 150mg Tablets Medications Administered in Office Medication SIG Qnty Indications Ordering Provider Date Injection Elba Almeida FNP 08/10/2019 Tromethamine 30 MG/mL (Toradol) Injection Injection Ketorolac Ilana Zhao PNP-BC, 06/20/2019 Tromethamine 30 MG/mL Deepika LOPEZ (Toradol) Injection Injection KetorolIlana Minor PNP-BC, 04/26/2019 Tromethamine 30 MG/mL DENTAL TECHNICIAN APPRENTICE, Ibclc (Toradol) Injection Injection Ketorolac Ilana Zhao PNP-CHRISTOPH, 02/06/2019 Tromethamine 30 MG/mL DENTAL TECHNICIAN APPRENTICE, Ibclc (Toradol) Injection Injection Ketorolac Ilana Zhao PNP-BC, 02/06/2019 Tromethamine 30 MG/mL DENTAL TECHNICIAN APPRENTICE, Ibclc (Toradol) Injection Injection Ketorolac Ilana Zhao PNP-BC, 01/09/2019 Tromethamine 30 MG/mL DENTAL TECHNICIAN APPRENTICE, Ibclc (Toradol) Injection Immunizations CPT Code Status Date Vaccine Lot # 11940 Given 05/11/2019 Influenza Virus Vaccine, Quadrivalent, 36 Mos+, [id number] .[id number] Given 05/24/2018 Influenza Virus Vaccine, Quadrivalent, 36 Mos+, [id number] .[id number] Vital Signs Date Vital Result Comment 08/14/2019 8:16am BP Systolic 122 mmHg BP Diastolic 74 mmHg Heart Rate 59 /min Respiratory Rate 16 /min Height 66 inches 5'6" Weight 234.00 lb BMI (Body Mass Index) 37.8 kg/m2 BSA (Body Surface Area) 2.14 m2 [place] body weight in kilograms 59 kg 08/10/2019 1:51pm BP Systolic 120 mmHg BP Diastolic 68 mmHg Body Temperature 97.9 F Heart Rate 80 /min Respiratory Rate 16 /min Height 65.5 inches 5'5.50" Weight 230.00 lb BMI (Body Mass Index) 37.7 kg/m2 BSA (Body Surface Area) 2.11 m2 [place] body weight in kilograms 58 kg O2 % BldC Oximetry 98 % Results Test Acquired Date Facility Test Result H/L Range Note Urine Culture 05/12/2019 [facility] Urine Culture MIXED URETHRAL 1, [address] <SEE NOTE> [place], [place] [id number] [phone] Quantity 10,000 - 100,000 <SEE NOTE> 3 Urine Dipstick 05/12/2019 [facility] Ua Color yellow Yellow Ua Clarity clear Clear Ua Leuko 70 High Negative Ua Nitrite neg Negative Ua Urobilinogen 0.2 0.2 - 1.0 E.U./dL Ua Protein 15 High Negative Ua PH 6.0 Low 6.5-7.5 Ua Blood neg Negative Ua Specific Starlight 1.020 1.010-1.030 Ua Ketones neg Negative Ua Bilirubin 1 High Negative Ua Glucose neg Negative Poc Urinalysis 04/15/2019 [facility] Poc Glucose, Negative Negative [phone] Urine Poc Bilirubin, Urine Negative Negative Poc Ketone, Urine Negative Negative Poc Specific Starlight, Urine 1.020 Normal 1.010-1.030 Poc Blood, Urine Negative Negative Poc pH, Urine 7.0 Normal 5-9 Poc Protein, Urine Negative Negative Poc Urobilinogen, Urine 0.2 Negative Poc Nitrite, Urine Negative Negative Poc Leukocytes, Urine Trace Abnormal Negative Poc Color, Urine Yellow Poc Clarity, Urine Clear 4 Urine Culture And 04/15/2019 [facility] Urine Culture SEE RESULT 5, 6 Sensitivities [phone] BELOW 1 N39.0 2 MIXED URETHRAL YOLY 3 10,000 - 100,000 CFU/mL SPECIMEN IS A MIX OF GRAM NEGATIVE AND GRAM POSITIVE ORGANISMS. UNABLE TO DETERMINE WHICH ORGANISMS ARE FROM THE URINARY TRACT OR THE RESULT OF SKIN VAGINAL PERIANAL CONTAMINATION DURING COLLECTION. SUGGEST REPEAT SPECIMEN IF CLINICALLY INDICATED. 4 Dicer Machine Operator: [id number] SEE RESULT BELOW Name: LORI SANTANA : [address]: Angela Vallecillo MD Acct: [id number] Unit: [id number] AGE: 33 Location: [facility] Re04/15/19 SEX: F Status: DEP ER SPEC: [id number] DOMINIK: 04/15/19-1021 [facility] DR: Angela Vallecillo MD REQ: [id number] RECD: 04/15/19 STATUS: BALJEET ADKINS DR: Ilana Zhao MANAGER PERFORMANCE _ SOURCE: URINE [facility]: ORDERED: Urine Culture COMMENTS: [id number] Procedure Result Reported Site Urine Culture Final 04/17/19- 901 ML No growth of clinically significant organisms * ML - Main Lab . END OF REPORT DEPARTMENT OF PATHOLOGY, [address] [place] [address] Oswaldo Cobos M.D. Director [facility] # [id number] Procedures Date Code Description Status 08/10/2019 63504 Theraputic Or Diagnostic Injection Completed 07/12/2019 08807 Posterior Tibial Neurostimulation, Percutaneous Needle Completed Electrode 06/23/2019 41784 Posterior Tibial Neurostimulation, Percutaneous Needle Completed Electrode 06/20/2019 52589 Theraputic Or Diagnostic Injection Completed 06/14/2019 74104 Posterior Tibial Neurostimulation, Percutaneous Needle Completed Electrode 06/07/2019 52676 Posterior Tibial Neurostimulation, Percutaneous Needle Completed Electrode 04/26/2019 21062 Theraputic Or Diagnostic Injection Completed 02/27/2019 58039 Anoscopy Completed 02/23/2019 71976 voiding pressure study vp integrity intra abdominal voiding pressure Completed ap 02/23/2019 91960 emg studies of urethral sphincter, other than needle, any Completed tech 02/23/2019 03689 complex uroflowmetry electronic Completed 02/23/2019 66743 Cystometrogram complex w/ voiding and urethral pressure Completed studies 02/23/2019 30264 Bladder Catheterization Completed Medical Devices Description No Information Available Encounters Type Date Location Provider Dx Diagnosis Office Visit 08/14/2019 Family Medicine Ilana Zhao, G43.909 Migraine, unsp, not 8:00a [address] PNP-BC, DENTAL TECHNICIAN APPRENTICE, intractable, without Ibclc status migrainosus Office Visit 08/10/2019 Family Medicine Elba Valenzuela, R51 Headache 1:30p [facility] DENTAL TECHNICIAN APPRENTICE Office Visit 07/10/2019 Family Medicine Devon Murray MD J20.9 Acute bronchitis, 2:30p [facility] unspecified Office Visit 06/23/2019 Urology Cordell Morel N39.46 Mixed incontinence 9:15a R., PA Office Visit 06/20/2019 Family Ilana Martin, M54.5 Low back pain 3:15p [facility] PNP-BC, DENTAL TECHNICIAN APPRENTICE, Ibclc M62.830 Muscle spasm of back Office Visit 06/07/2019 8:30a Urology Cordell Morel N39.46 Mixed incontinence R., PA Office Visit 05/12/2019 9:45a Urology Cordell Morel N39.0 Urinary tract R., PA infection, site not specified N39.46 Mixed incontinence R39.15 Urgency of urination Office Visit 05/11/2019 8:30a Family Ilana Martin, R73.9 Hyperglycemia, [place] RD PNP-BC, DENTAL TECHNICIAN APPRENTICE, unspecified Ibclc M54.16 Radiculopathy, lumbar region Z23 Encounter for immunization Office Visit 04/26/2019 11:30a Family Ilana Martin, M54.2 Cervicalgia [facility] PNP-BC, DENTAL TECHNICIAN APPRENTICE, Ibclc N39.46 Mixed incontinence Office Visit 03/07/2019 2:15p Family Ilana Martin, E16.2 Hypoglycemia, [address] RD ESAUBC, DENTAL TECHNICIAN APPRENTICE, unspecified Ibclc Office Visit 03/02/2019 3:15p Urology Cherie N39.46 Mixed incontinence Marianela Akers Office Visit 02/27/2019 4:15p GI Prudencio, N39.46 Mixed incontinence MD Carlitos K64.9 Unspecified hemorrhoids K92.1 Melena Assessments Date Code Description Provider 08/14/2019 G43.909 Migraine Ilana Zhao PNP-BC, DENTAL TECHNICIAN APPRENTICE, Ibclc 08/10/2019 R51 Headache Elba Valenzuela DENTAL TECHNICIAN APPRENTICE 07/12/2019 N39.46 Mixed incontinence Cordell Morel PA 07/10/2019 J20.9 Acute bronchitis, unspecified Devon Murray MD 06/23/2019 N39.46 Mixed incontinence Cordell Morel PA 06/20/2019 M54.5 Low back pain Ilana Zhao PNP-BC, DENTAL TECHNICIAN APPRENTICE, Ibclc 06/20/2019 M62.830 Muscle spasm of back Ilana Zhao PNP-BC, DENTAL TECHNICIAN APPRENTICE, Ibclc 06/14/2019 N39.46 Mixed incontinence Cordell Morel PA 06/07/2019 N39.46 Mixed incontinence Cordell Morel PA 05/12/2019 N39.0 Urinary tract infection, site not Cordell Morel PA specified 05/12/2019 N39.46 Mixed incontinence Cordell Morel PA 05/12/2019 R39.15 Urgency of urination Cordell Morel PA 05/11/2019 R73.9 Hyperglycemia, unspecified Ilana Zhao PNP-BC, DENTAL TECHNICIAN APPRENTICE, Ibclc 05/11/2019 M54.16 Radiculopathy, lumbar region Ilana Zhao PNP-BC, DENTAL TECHNICIAN APPRENTICE, Ibclc 05/11/2019 Z23 Encounter for immunization Ilana Zhao PNP-BC, DENTAL TECHNICIAN APPRENTICE, Ibclc 04/26/2019 M54.2 Cervicalgia Ilana Zhao PNP-BC, DENTAL TECHNICIAN APPRENTICE, Ibclc 04/26/2019 N39.46 Mixed incontinence Ilana Zhao PNP-BC, DENTAL TECHNICIAN APPRENTICE, Ibclc 03/07/2019 E16.2 Hypoglycemia, unspecified Ilana Zhao PNP-BC, DENTAL TECHNICIAN APPRENTICE, Ibclc 03/02/2019 N39.46 Mixed incontinence Oswald Crespo M.D. 02/27/2019 N39.46 Mixed incontinence Carlitos Flannery MD 02/27/2019 K64.9 Unspecified hemorrhoids Carlitos Flannery MD 02/27/2019 K92.1 Melena Carlitos Flannery MD 02/23/2019 N39.46 Mixed incontinence Oswald Crespo M.D. 02/23/2019 R35.0 Frequency of micturition Oswald Crespo M.D. 02/23/2019 R39.15 Urgency of urination Oswald Crespo M.D. 02/23/2019 R39.14 Feeling of incomplete bladder Oswald Crespo M.D. emptying Plan of Treatment Future Appointment(s):09/13/2019 8:15 am - Ilana Zhao PNP-BC, DENTAL TECHNICIAN APPRENTICE, Ibclc at [facility] RD08/14/2019 - Ilana Zhao PNP-BC, DENTAL TECHNICIAN APPRENTICE, QzibdT38.909 MigraineNew Medication:Nortriptyline HCL 25 mg - take one capsule by mouth every day at bedtimeSumatriptan Succinate 50 mg - 1 tab at onset and if no improvement may repeat in 2 hoursNaproxen 500 mg - 1 by mouth twice a day with food as neededComments:I think at this point a daily prevention med might benefit you at least until you can get yourself straightened back out at .pls let me know how it's doing in 2 weeks and I'll see you in a monthFollow up:1 month fu Functional Status Description No Information Available Mental Status Description No Information Available Referrals Refer to Dr Reason for Referral Status Appt Date Anorectal Manometry. Patient chose to have procedure Closed done in [place] rather than [place] as pt's sister lives in [place]. Patient was seen by Dr. Flannery for office visit 02/27/19. Ted Giron MD anorectal manometry-- PATIENT WOULD RATHER GO TO Closed [facility] FOR THIS.... CANCELLED THIS REFERRAL. [address], [place] [address] [phone]
--- OUTSIDE RECORDS SUMMARY | 2019-09-11 07:18 | XMS REPORT | Continuity of Care Document ---
:1985 External Reference #:[id number] Author Name Ilana Zhao, EMILY-BC, WOMEN'S APPAREL SALESPERSON, Ibclc Address [address] [place] [id number] Care Team Providers Name Role Phone Ilana Zhao, EMILY-BC, WOMEN'S APPAREL SALESPERSON, Ibclc Care Team Information Edger Automatic - Family Oswald Crespo M.D. - Urology Care Team Information Edger Automatic [phone] Gino Liao M.D. - Orthopaedic Care Team Information Edger Automatic Surgery Yandy Willett - Pain Medicine Care Team Information Edger Automatic [phone] Zahraa Strickland RPA-C - Physician Care Team Information Edger Automatic Atomic Process Engineer Problems Active Problems Provider Date Midline cystocele [...] Zhao, 2019 by mouth every day PNP-BC, WOMEN'S APPAREL SALESPERSON, 25mg Capsules at bedtime Ibclc Sumatriptan 1 tab at onset and 14tabs G43.909 Ilana Zhao, 08/14/2019 Succinate if no improvement PNP-BC, WOMEN'S APPAREL SALESPERSON, 50mg may repeat in 2 Ibclc Tablets hours Naproxen 1 by mouth twice a 60tabs G43.909 Ilana Zhao, 08/14/2019 500mg day with food as PNP-BC, WOMEN'S APPAREL SALESPERSON, Tablets needed Ibclc Proair HFA 2 puff every 4-6 8.5units J20.9 Devon Murray MD 07/10/2019 hours as needed 108(90Base) mcg/Act Aerosol Ranitidine HCL Take 1 Tablet By 60tabs Ilana Zhao, 07/04/2019 150mg Mouth Twice Daily PNP-BC, WOMEN'S APPAREL SALESPERSON, Tablets as Needed Ibclc Baclofen Take 1 Tablet By 90tabs Ilana Zhao, 07/04/2019 10mg Tablets Mouth Three Times PNP-BC, WOMEN'S APPAREL SALESPERSON, Daily Ibclc Hydroxyzine HCL take 2-4 tablets 120tabs F41.9 Ilana Zhao, 04/28/2019 25mg by mouth at PNP-BC, WOMEN'S APPAREL SALESPERSON, Tablets bedtime. *50mg Ibclc tabs on backorder* TENS Therapy Pain as directed 1units M54.2 Ilana Zhao, 04/26/2019 Relief PNP-BC, WOMEN'S APPAREL SALESPERSON, Device Ibclc Ketorolac Take 1 Tablet By 20tabs M54.2 Ilana Zhao, 04/26/2019 Tromethamine Mouth Every 4 To 6 PNP-BC, WOMEN'S APPAREL SALESPERSON, 10mg Hours as Needed Ibclc Tablets For Pain Onetouch Ultra 2 to check glucose 1units E16.2 Ilana Zhao, 03/07/2019 qd PNP-BC, WOMEN'S APPAREL SALESPERSON, w/Device Kit Ibclc Onetouch Ultra Blue test blood sugar 100units E16.2 Ilana Zhao, 2018 once a day PNP-BC, WOMEN'S APPAREL SALESPERSON, Strips Ibclc Onetouch Ultrasoft 1 a day to check 100units E16.2 Ilana Zhao, 2018 Lancets sugar PNP-BC, WOMEN'S APPAREL SALESPERSON, Misc Ibclc Oxybutynin Chloride 1 by mouth every 90tabs Ilana Zhao, 03/07/2019 ER day PNP-CHRISTOPH, WOMEN'S APPAREL SALESPERSON, 5mg Tablets ER Ibclc 24HR Pantoprazole Sodium 1 by mouth bid 60tabs Ilana Zhao, 03/06/2019 PNP-BC, WOMEN'S APPAREL SALESPERSON, 40mg Tablets DR Deepika Gabapentin take one capsule 90caps Ilana Zhao, 01/09/2019 400mg by mouth tid EMILY-CHRISTOPH, WOMEN'S APPAREL SALESPERSON, Capsules Deepika Trospium Chloride Take 1 Tablet By 60tabs Ilana Zhao, 11/11/2018 Mouth Twice Daily EMILY-BC, WOMEN'S APPAREL SALESPERSON, 20mg Tablets Ibандрей Montelukast Sodium TK 1 T PO qd [...] SIG Qnty Indications Ordering Provider Date Injection Ketorolac Elba Valenzuela FNP 08/10/2019 Tromethamine 30 MG/mL (Toradol) Injection Injection Ketorolac Ilana Zhao PNP-BC, 06/20/2019 Tromethamine 30 MG/mL Deepika LOPEZ (Toradol) Injection Injection Ketorolac Ilana Zhao PNP-BC, 04/26/2019 Tromethamine 30 MG/mL WOMEN'S APPAREL SALESPERSON, Ibclc (Toradol) Injection Injection Ketorolac Ilana Zhao, EMILY-BC, 02/06/2019 Tromethamine 30 MG/mL WOMEN'S APPAREL SALESPERSON, Ibclc (Toradol) Injection Injection Ketorolac Ilana Zhao PNP-BC, 02/06/2019 Tromethamine 30 MG/mL WOMEN'S APPAREL SALESPERSON, Ibclc (Toradol) Injection Injection Ketorolac Ilana Zhao PNP-BC, 01/09/2019 Tromethamine 30 MG/mL WOMEN'S APPAREL SALESPERSON, Ibclc (Toradol) Injection Immunizations CPT Code Status Date Vaccine Lot # [id number] Given 05/11/2019 Influenza Virus Vaccine, Quadrivalent, 36 Mos+, [id number] .[id number] Given 05/24/2018 Influenza Virus Vaccine, Quadrivalent, 36 Mos+, [id number] .[id number] Vital Signs Date Vital Result Comment 08/14/2019 8:16am BP Systolic 122 mmHg BP Diastolic 74 mmHg Heart Rate 59 /min Respiratory Rate 16 /min Height 66 inches 5'6" Weight 234.00 lb BMI (Body Mass Index) 37.8 kg/m2 BSA (Body Surface Area) 2.14 m2 Virgil body weight in kilograms 59 kg 08/10/2019 1:51pm BP Systolic 120 mmHg BP Diastolic 68 mmHg Body Temperature 97.9 F Heart Rate 80 /min Respiratory Rate 16 /min Height 65.5 inches 5'5.50" Weight 230.00 lb BMI (Body Mass Index) 37.7 kg/m2 BSA (Body Surface Area) 2.11 m2 Virgil body weight in kilograms 58 kg O2 % BldC Oximetry 98 % Results Test Acquired Date Facility Test Result H/L Range Note Urine Culture 05/12/2019 [facility] Urine Culture MIXED URETHRAL 1, [address] <SEE NOTE> [place] [address] [phone] Quantity 10,000 - 100,000 <SEE NOTE> 3 Urine Dipstick 05/12/2019 [facility] Ua Color yellow Yellow Ua Clarity clear Clear Ua Leuko 70 High Negative Ua Nitrite neg Negative Ua Urobilinogen 0.2 0.2 - 1.0 E.U./dL Ua Protein 15 High Negative Ua PH 6.0 Low 6.5-7.5 Ua Blood neg Negative Ua Specific [place] 1.020 1.010-1.030 Ua Ketones neg Negative Ua Bilirubin 1 High Negative Ua Glucose neg Negative Poc Urinalysis 04/15/2019 [facility] Poc Glucose, Negative Negative [phone] Urine Poc Bilirubin, Urine Negative Negative Poc Ketone, Urine Negative Negative Poc Specific [place], Urine 1.020 Normal 1.010-1.030 Poc Blood, Urine Negative Negative Poc pH, Urine 7.0 Normal 5-9 Poc Protein, Urine Negative Negative Poc Urobilinogen, Urine 0.2 Negative Poc Nitrite, Urine Negative Negative Poc Leukocytes, Urine Trace Abnormal Negative Poc Color, Urine Yellow Poc Clarity, Urine Clear 4 Urine Culture And 04/15/2019 [facility] Urine Culture SEE RESULT 5, 6 Sensitivities [phone] BELOW 1 N39.0 2 MIXED URETHRAL YOLY 3 10,000 - 100,000 CFU/mL SPECIMEN IS A MIX OF GRAM NEGATIVE AND GRAM POSITIVE ORGANISMS. UNABLE TO DETERMINE WHICH ORGANISMS ARE FROM THE URINARY TRACT OR THE RESULT OF SKIN VAGINAL PERIANAL CONTAMINATION DURING COLLECTION. SUGGEST REPEAT SPECIMEN IF CLINICALLY INDICATED. 4 Closed Circuit Screen Watcher: [id number] 6 SEE RESULT BELOW Name: LORI SANTANA : [address]: Angela Vallecillo MD Acct: [id number] Unit: [id number] AGE: 33 Location: [facility] Re04/15/19 SEX: F Status: DEP ER SPEC: [id number] DOMINIK: 04/15/19-[address] [facility] [address]: Angela Vallecillo MD REQ: [id number] RECD: 04/15/19 STATUS: BALJEET ADKINS DR: Ilana Zhao MIXER DIAMOND POWDER _ SOURCE: URINE [facility]: ORDERED: Urine Culture COMMENTS: [id number] Procedure Result Reported Site Urine Culture Final 04/17/19- 901 ML No growth of clinically significant organisms * ML - Main Lab . END OF REPORT DEPARTMENT OF PATHOLOGY, [address] [place] [address] Oswaldo Cobos M.D. Director [facility] # [id number] Procedures Date Code Description Status 08/10/2019 46751 Theraputic Or Diagnostic Injection Completed 07/12/2019 14097 Posterior Tibial Neurostimulation, Percutaneous Needle Completed Electrode 06/23/2019 74246 Posterior Tibial Neurostimulation, Percutaneous Needle Completed Electrode 06/20/2019 16434 Theraputic Or Diagnostic Injection Completed 06/14/2019 03200 Posterior Tibial Neurostimulation, Percutaneous Needle Completed Electrode 06/07/2019 06530 Posterior Tibial Neurostimulation, Percutaneous Needle Completed Electrode 04/26/2019 70434 Theraputic Or Diagnostic Injection Completed 02/27/2019 64517 Anoscopy Completed 02/23/2019 30405 voiding pressure study svp intra abdominal voiding pressure Completed ap 02/23/2019 92300 emg studies of urethral sphincter, other than needle, any Completed tech 02/23/2019 70661 complex uroflowmetry electronic Completed 02/23/2019 93054 Cystometrogram complex w/ voiding and urethral pressure Completed studies 02/23/2019 69087 Bladder Catheterization Completed Medical Devices Description No Information Available Encounters Type Date Location Provider Dx Diagnosis Office Visit 08/14/2019 Family Medicine Ilana Zhao, G43.909 Migraine, unsp, not 8:00a [address] [address] PNP-BC, WOMEN'S APPAREL SALESPERSON, intractable, without Ibclc status migrainosus Office Visit 08/10/2019 Family Medicine Elba Valenzuela, R51 Headache 1:30p [facility] WOMEN'S APPAREL SALESPERSON Office Visit 07/10/2019 Family Medicine Devon Murray MD J20.9 Acute bronchitis, 2:30p [facility] unspecified Office Visit 06/23/2019 Urology Cordell Morel N39.46 Mixed incontinence 9:15a R., PA Office Visit 06/20/2019 Family Ilana Martin, M54.5 Low back pain 3:15p [facility] PNP-BC, WOMEN'S APPAREL SALESPERSON, Ibclc M62.830 Muscle spasm of back Office Visit 06/07/2019 8:30a Urology Cordell Morel N39.46 Mixed incontinence R., PA Office Visit 05/12/2019 9:45a Urology Cordell Morel N39.0 Urinary tract R., PA infection, site not specified N39.46 Mixed incontinence R39.15 Urgency of urination Office Visit 05/11/2019 8:30a Family Medicine Ilana Zhao, R73.9 Hyperglycemia, [place] [address] PNP-BC, WOMEN'S APPAREL SALESPERSON, unspecified Ibclc M54.16 Radiculopathy, lumbar region Z23 Encounter for immunization Office Visit 04/26/2019 11:30a Family Ilana Martin, M54.2 Cervicalgia [facility] PNP-BC, WOMEN'S APPAREL SALESPERSON, Ibclc N39.46 Mixed incontinence Office Visit 03/07/2019 2:15p Family Ilana Martin, E16.2 Hypoglycemia, [address] ESAUBC, WOMEN'S APPAREL SALESPERSON, unspecified Ibclc Office Visit 03/02/2019 3:15p Urology Cherie N39.46 Mixed incontinence Marianela Akers Office Visit 02/27/2019 4:15p GI Prudencio, N39.46 Mixed incontinence MD Carlitos K64.9 Unspecified hemorrhoids K92.1 Melena Assessments Date Code Description Provider 08/14/2019 G43.909 Migraine Ilana Zhao PNP-BC, WOMEN'S APPAREL SALESPERSON, Ibclc 08/10/2019 R51 Headache Elba Valenzuela WOMEN'S APPAREL SALESPERSON 07/12/2019 N39.46 Mixed incontinence Cordell Morel PA 07/10/2019 J20.9 Acute bronchitis, unspecified Devon Murray MD 06/23/2019 N39.46 Mixed incontinence Cordell Morel PA 06/20/2019 M54.5 Low back pain Ilana Zhao PNP-BC, WOMEN'S APPAREL SALESPERSON, Ibclc 06/20/2019 M62.830 Muscle spasm of back Ilana Zhao PNP-BC, WOMEN'S APPAREL SALESPERSON, Ibclc 06/14/2019 N39.46 Mixed incontinence Cordell Morel PA 06/07/2019 N39.46 Mixed incontinence Cordell Morel PA 05/12/2019 N39.0 Urinary tract infection, site not Cordell Morel PA specified 05/12/2019 N39.46 Mixed incontinence Cordell Morel PA 05/12/2019 R39.15 Urgency of urination Cordell Morel PA 05/11/2019 R73.9 Hyperglycemia, unspecified Ilana Zhao PNP-BC, WOMEN'S APPAREL SALESPERSON, Ibclc 05/11/2019 M54.16 Radiculopathy, lumbar region Ilana Zhao PNP-BC, WOMEN'S APPAREL SALESPERSON, Ibclc 05/11/2019 Z23 Encounter for immunization Ilana Zhao PNP-BC, WOMEN'S APPAREL SALESPERSON, Ibclc 04/26/2019 M54.2 Cervicalgia Ilana Zhao PNP-BC, WOMEN'S APPAREL SALESPERSON, Ibclc 04/26/2019 N39.46 Mixed incontinence Ilana Zhao PNP-BC, WOMEN'S APPAREL SALESPERSON, Ibclc 03/07/2019 E16.2 Hypoglycemia, unspecified Ilana Zhao PNP-BC, WOMEN'S APPAREL SALESPERSON, Ibclc 03/02/2019 N39.46 Mixed incontinence Oswald Crespo [...] Appointment(s):09/13/2019 8:15 am - Ilana Zhao PNP-BC, WOMEN'S APPAREL SALESPERSON, Ibclc at [facility] RD08/10/2019 - Elba Valenzuela [id number] HeadacheNew Therapy: Physical TherapyComments:Current migraine which has been almost daily since having to stop PT due to car insurance not paying.I did put in a new PT referral since it was working so well for migraine management.Also received a toradol injection today.Continue with muscle relaxant as needed.Follow up:prn Functional Status Description No Information Available Mental Status Description No Information Available Referrals Refer to Dr Reason for Referral Status Appt Date Anorectal Manometry. Patient chose to have procedure Closed done in [place] rather than [place] as pt's sister lives in [place]. Patient was seen by Dr. Flannery for office visit 02/27/19. Ted Giron MD anorectal manometry-- PATIENT WOULD RATHER GO TO [facility] FOR THIS.... CANCELLED THIS REFERRAL. [address] [place] [phone]
--- OUTSIDE RECORDS SUMMARY | 2019-09-11 07:18 | XMS REPORT | Continuity of Care Document ---
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 1 ppd at Unknown 1 Pack Daily most Smoking Status Reviewed: 09/01/19 Former Cigarette Smoker 5-6 years. 1 ppd at 1 Pack Daily most ETOH Use Denies alcohol use Tobacco Use Start: Unknown End: Patient is a former Unknown smoker Recreational Drug Use Denies Drug Use Exercise Type/Frequency Exercises sporadically Allergies, Adverse Reactions, Alerts Active Allergies Reaction Severity Comments Date Amoxicillin 08/21/2016 Morphine 08/21/2016 Sudafed 08/21/2016 Cast Material Hives and itching 11/16/2016 04/28/2017 Cipro tendon pain and diarrhea 10/11/2017 Medications Active Medications SIG Qnty Indications Ordering Provider Date Ventolin HFA 2 puffs prn Unknown 108(90Base) mcg/Act Aerosol Gabapentin 1 cap 3 times Christina Rosas, 400mg Capsules daily RN MDS COORDINATOR-Cde Hydroxyzine HCL TK 1 T PO hs prn Unknown 50mg Tablets Multiple Vitamin 1 by mouth every Unknown Tablets day Trospium Chloride TK 1 T PO bid Unknown 20mg Tablets Tramadol HCL as needed Unknown 50mg Tablets Baclofen TK 1 T PO tid Unknown 10mg Tablets Pantoprazole Sodium TK 1 T PO qd Unknown 40mg Tablets DR Ketorolac Tromethamine TK 1 T PO Q 4 To Unknown 10mg 6 H PRF Pain Tablets Tizanidine HCL one by mouth Unknown 4mg Capsules every 8 hours as needed muscle spasms Nortriptyline HCL TK 1 C PO qd hs Unknown 25mg Capsules Naproxen TK 1 T PO bid WF Unknown 500mg Tablets prn Medications Administered in Office Medication SIG Qnty Indications Ordering Provider Date Celestone 3 mg and 3mg Gino Narayan MD 08/25/2019 Injection Celestone 3 mg and 3mg Pirere Ayala MD 06/27/2019 Injection Celestone 3 mg and 3mg Pierre Ayala MD 03/16/2019 Injection Celestone 3 mg and 3mg Gino Liao M.D. 11/09/2018 Injection Celestone 3 mg and 3mg Gino Liao M.D. 10/26/2018 Injection Celestone 3 mg and 3mg Pierre Ayala MD 10/11/2017 Injection Celestone 3 mg and martíng Gino Narayan MD 05/18/2017 Injection Immunizations Description No Information Available Vital Signs Date Vital Result Comment 09/01/2019 12:44pm Height 66 inches 5'6" Weight 225.00 lb Heart Rate 98 /min BP Systolic Sitting 120 mmHg BP Diastolic Sitting 60 mmHg O2 % BldC Oximetry 97 % BMI (Body Mass Index) 36.3 kg/m2 08/25/2019 2:08pm Height 66 inches 5'6" Weight 221.00 lb Heart Rate 94 /min BP Systolic Sitting 108 mmHg BP Diastolic Sitting 68 mmHg Respiratory Rate 14 /min Pain Level 5 O2 % BldC Oximetry 98 % BMI (Body Mass Index) 35.7 kg/m2 Results Description No Information Available Procedures Date Code Description Status 08/25/2019 52596 Rad Exam; Hand Comp Completed 08/25/2019 71764 Inject/Drain Joint/Bursa Small W/O US Completed 06/27/2019 23350 Radiologic Exam Hips Bilateral With Pelvis 3-4 Views Completed 06/27/2019 Inject/Drain Joint/Bursa Major W/O US Completed 03/16/2019 Inject/Drain Joint/Bursa Major W/O US Completed Medical Devices Description No Information Available Encounters Type Date Location Provider Dx Diagnosis Office Visit 09/01/2019 [facility] Alejandra G47.33 Obstructive sleep 1:00p [facility] ap[facility] (adult) [facility] (pediatric) Office Visit 06/27/2019 [facility] Pierre Ayala M70.62 Trochanteric 1:15p at [facility] bursitis, left hip M70.61 Trochanteric bursitis, right hip M25.552 Pain in left hip Assessments Date Code Description Provider 09/01/2019 G47.33 Obstructive sleep apnea (adult) (pediatric) Alejandra Casillas NP 08/25/2019 M18.11 Unilateral primary osteoarthritis of first Gino Narayan MD carpometacarpal joint, right hand 06/27/2019 M70.62 Trochanteric bursitis, left hip Pierre Ayala MD 06/27/2019 M70.61 Trochanteric bursitis, right hip Pierre Ayala MD 06/27/2019 M25.552 Pain in left hip Pierre Ayala MD 03/16/2019 M75.42 Impingement syndrome of left shoulder Pierre Ayala MD Plan of Treatment Future Appointment(s):11/01/2019 8:00 am - Alejandra Casillas NP at [facility]09/01/2019 - Alejandra Csaillas NPG47.33 Obstructive sleep apnea (adult) (pediatric)New Orders:Sleep Study, Ordered: Follow up:2 months (NPSG prior)Recommendations:I will send an order for supplies to [facility] . If you have difficulty with your equipment, or need to replace your mask or hoses, please contact your homecare agency.If you have any further questions, please call the [facility] at [phone] If you have any sleepiness while driving you MUST avoid operating a vehicle or machinery. If you feel tired while driving sheeting puller and take a nap or switch drivers. If you know you are sleepy and need to go somewhere, arrange for a ride or use public transportation. It is very important to not risk your safety or the safety of others. Functional Status Description No Information Available Mental Status Description No Information Available Referrals Description No Information Available
[2019-09-11 07:24] VITALS: BP 115/72
--- NOTE | 2019-09-11 08:21 | UC ---
Back Pain HPI - HPI Summary HPI Summary: 33-year-old woman comes in with a chief complaint of low back pain. Patient reports she's had over year of low back pain. She does use tizanidine. She cannot take NSAIDs because of a gastric bypass. Pain is in the low back and goes into both buttocks but it does go down the right leg on occasion. She did have a brief episode recently while walking but the pain went down the right leg and she felt like her right leg was going to give out on her. This episode lasted just a couple of minutes. At this time no complaint of any weakness or numbness. No complaint of any difficulty controlling urine or bowels. Pain is worse with movement and activity. In the past patient's gastric physical therapy and that has improved symptoms and she would like to go back to physical therapy. - History of Current Complaint Chief Complaint: UCBackPain Stated Complaint: LOWER BACK LEFT HIP PAIN Time Seen by Provider: 09/11/19 07:36 Hx Last Menstrual Period: 03/22/19 Pain Intensity: 7 - Allergies/Home Medications Allergies/Adverse Reactions: Allergies Allergy/AdvReac Type Severity Reaction Status Date / Time amoxicillin Allergy Intermediate Hives Verified 09/11/19 07:24 pseudoephedrine Allergy Intermediate Hives Verified 09/11/19 07:24 [From Sudafed] Adhesive Tape Allergy Rash Verified 09/11/19 07:24 [Tegaderm Dressing] morphine AdvReac Severe Nausea And Verified 09/11/19 07:24 Vomiting chloraprep Allergy Severe Hives Uncoded 09/11/19 07:24 fiberglass cast material Allergy Severe Hives Uncoded 09/11/19 07:24 Home Medications: Home Medications Nortriptyline CAP* [Pamelor CAP*] 25 mg PO BEDTIME 09/11/19 [History Confirmed 09/11/19] SUMAtriptan TAB* [Imitrex TAB*] 50 mg PO SEE INSTRUCTIONS 09/11/19 [History Confirmed 09/11/19] PMH/Surg Hx/FS Hx/Imm Hx Previously Healthy: Yes - chronic low back pain GI/ History: Gastroesophageal Reflux - Surgical History Surgical History: Yes Surgery Procedure, Year, and Place: APPENDECTOMY,. OVARIAN CYST ,. PILONIDAL CYSTECTOMY;. RIGHT FOOT 09/21/16;. RIGHT FOOT/ANKLE SURGERY 10/26/16;. RIGHT THUMB X2 JUN 2017, NOVEMBER 2017;. GASTRIC BYPASS FEBRUARY 02 2018;. ENDOSCOPY - NO POLYPS; - Family History Known Family History: Positive: Cardiac Disease, Hypertension Negative: Diabetes - Social History Alcohol Use: None Substance Use Type: None Smoking Status (MU): Former Smoker Type: Cigarettes Amount Used/How Often: 1 ppd for 4 years Length of Time of Smoking/Using Tobacco: 4 YRS Have You Smoked in the Last Year: No When Did the Patient Quit Smoking/Using Tobacco: 2008 - Immunization History Most Recent Influenza Vaccination: not yet Most Recent Tetanus Shot: WITHIN 10 YEARS Most Recent Pneumonia Vaccination: never Review of Systems All Other Systems Reviewed And Are Negative: Yes Constitutional: Positive: Negative Skin: Positive: Negative Eyes: Positive: Negative ENT: Positive: Negative Respiratory: Positive: Negative Cardiovascular: Positive: Negative Gastrointestinal: Positive: Negative Motor: Positive: Other - SEE HPI Neurovascular: Positive: Other - SEE HPI Musculoskeletal: Positive: Other: - SEE HPI Neurological: Positive: Other - SEE HPI Psychological: Positive: Negative Is Patient Immunocompromised?: No Physical Exam Triage Information Reviewed: Yes Appearance: Well-Appearing, No Pain Distress, Well-Nourished Vital Signs: Initial Vital Signs Temp 98.9 F 09/11/19 07:21 Pulse 98 09/11/19 07:21 Resp 20 09/11/19 07:21 BP 115/72 09/11/19 07:21 Pulse Ox 100 09/11/19 07:21 Vital Signs Reviewed: Yes Eye Exam: Normal Eyes: Positive: Conjunctiva Clear Neck: Positive: Supple Respiratory: Positive: No respiratory distress Musculoskeletal: Positive: Other: - Patient is tender to palpation mid low back into the upper portions of both buttocks. Tenderness extends farther into the right buttock. Legs have full range of motion full-strength. Patient can feel light touch bilaterally. Patellar reflexes 1+ bilaterally. Patient does have increased pain on the right side with right hip flexion. Normal plantarflexion and dorsiflexion bilaterally. Neurological: Positive: Alert Psychological: Positive: Age Appropriate Behavior Skin Exam: Normal Back Pain Course/Dx - Course Course Of Treatment: No neurologic deficit found on my examination today. I gave the patient a physical therapy referral. She can also follow-up with her primary care doctor and/or sports medicine. Get reevaluated sooner if any neurologic deficits or pain or any other questions or concerns. - Differential Dx/Diagnosis Provider Diagnosis: Low back pain Discharge ED - Sign-Out/Discharge Documenting (check all that apply): Patient Departure All imaging exams completed and their final reports reviewed: No Studies - Discharge Plan Condition: Stable Disposition: HOME Patient Education Materials: Back Pain (ED), Lower Back Exercises (ED) Referrals: Ilana Zhao NP [Primary Care Provider] - [facility] [Provider Group] Additional Instructions: FOLLOW UP WITH PHYSICAL THERAPY, YOUR DOCTOR OR SPORTS MEDICINE. GET REEVALUATED SOONER IF NOT IMPROVING OR WORSE; PAIN, WEAKNESS, NUMBNESS, DIFFICULTY CONTROLLING BOWEL OR BLADDER OR ANY QUESTIONS OR CONCERNS. - Billing Disposition and Condition Condition: STABLE Disposition: Home
== END 2019-09-11 08:28 | disposition home or self-care (01) ==
LOC: UCCORT 07:01
DX: M54.5 Low back pain (principal); M79.10 Myalgia, unspecified site; M79.604 Pain in right leg; G89.29 Other chronic pain; Z88.0 Allergy status to penicillin; Z88.8 Allergy status to other drugs, medicaments and biological substances; Z91.09 Other allergy status, other than to drugs and biological substances; Z88.5 Allergy status to narcotic agent; Z98.84 Bariatric surgery status; Z87.891 Personal history of nicotine dependence
CPT/HCPCS: 99211; G0463